=== PATIENT | male | born 1940 | race Caucasian/White ===

== ENCOUNTER 2019-10-12 15:28 | Outpatient (CLI) | payer MEDICARE, OTHER, SELFPAY ==
--- NOTE | 2019-10-12 | US_ITS ---
WS: [id number] RENAL ULTRASOUND URINARY BLADDER ULTRASOUND HISTORY: Pre- AND POST VOID RESIDUAL VOLUME COMPARISON: 01/14/2016 TECHNIQUE: 2-D and color Doppler imaging of the kidney submitted. Right kidney: 10.1 cm x 5.1 cm x 4.7 cm. Normal size kidney. Simple cyst exophytic from the upper pole measures 1.7 x 1.6 x 1.5 cm. Left kidney: 9.9 cm x 4.6 cm x 5.5 cm. Normal size kidney. Extrarenal pelvis. Aorta: Normal. Urinary Bladder: Normal distention. Prevoid volume of 52 cubic cm. Post void volume: Completely empty. US/US renal BI with bladder IMPRESSION: 1. No hydronephrosis or significant chronic medical renal disease. 2. No post void urinary bladder residual.
== END 2019-10-12 15:29 | disposition home or self-care (01) ==
LOC: RAD 15:33
PROVIDERS: PCP Family Medicine; Visit Provider Family Medicine
DX: N18.3 Chronic kidney disease, stage 3 (moderate) (principal); R35.0 Frequency of micturition
CPT/HCPCS: 76770; 76857

== ENCOUNTER → 2020-05-06 12:57 | Outpatient (BNVA) | payer MEDICARE, OTHER, SELFPAY | PROVIDERS: PCP Family Medicine; Visit Provider Family Medicine | DX: Z20.822 Contact with and (suspected) exposure to COVID-19 (principal); Z11.52 Encounter for screening for COVID-19 | CPT/HCPCS: 87635 ==

== ENCOUNTER 2021-05-09 09:37 | Outpatient (CLI) | payer MEDICARE, OTHER, SELFPAY ==
--- NOTE | 2021-05-09 09:44 | USCV_ITS ---
ConchitaUmer Age: 81 Gender: M : 1940 Exam Date: 05/09/2021 10:06 Ordering Phys: David Garg MD Technologist: BIRD Exam Location: [facility] [place]_ Indication: CCA STENOSIS Risk Factors: Previous Vascular Surgery: Right Brachial BP: / Left Brachial BP: / Right Left Velocity (cm/s) Spectral Plaque Velocity (cm/s) Spectral Plaque Syst/Diast Broadening Syst/Diast Broadening 93.70/ 19.80 Prox CCA 46.90 / 5.90 84.90/ 16.50 Mid CCA 57.30 / 10.40 78.30/ 12.10 Hetro Distal CCA 67.70 / 14.30 Hetro 75.60/ 18.50 Hetro Prox ICA 144.30/ 35.20 Hetro 307.90/73.40 PST Hetro Mid ICA 113.60/ 25.10 Hetro 123.30/17.40 Distal ICA 101.90/ 21.70 91.60 ECA 112.50 3.28 ICA/CCA 2.13 Retrograde Vertebral Antegrade 79.90/ 13.90 cm/s 80.20/ 15.00 cm/s Tri Subclavian Tri 65.80 123.6 0 FINDINGS Comparison: none available. Diffuse bilateral scattered calcified plaque and intimal thickening throughout the common carotid arteries and extending through the bifurcation. Elevated velocity and turbulence right ICA. Retrograde right vertebral artery. Mild left ICA elevated velocity. CONCLUSIONS Right ICA stenosis 70-99%. Closer to 70%. Left ICA stenosis < 50%. Retrograde right vertebral artery. Dr. Roxanna Albright DO (Electronically Signed) Final Date: 09 May 2021 10:54 S
== END 2021-05-09 09:38 | disposition home or self-care (01) ==
PROVIDERS: PCP Family Medicine; Visit Provider Family Medicine
DX: R09.89 Other specified symptoms and signs involving the circulatory and respiratory systems (principal); I65.23 Occlusion and stenosis of bilateral carotid arteries
CPT/HCPCS: 93880

== ENCOUNTER → 2021-10-30 09:27 | Outpatient (BNVA) | payer MEDICARE, OTHER, SELFPAY | PROVIDERS: PCP Family Medicine; Visit Provider Family Medicine | DX: E11.9 Type 2 diabetes mellitus without complications (principal); I10 Essential (primary) hypertension; I65.29 Occlusion and stenosis of unspecified carotid artery; N40.0 Benign prostatic hyperplasia without lower urinary tract symptoms | CPT/HCPCS: 80053; 80061; 83036; 85025 ==

== ENCOUNTER → 2021-12-09 09:53 | Outpatient (BNVA) | payer MEDICARE, OTHER, SELFPAY | PROVIDERS: PCP Family Medicine; Visit Provider Family Medicine | DX: N18.32 Chronic kidney disease, stage 3b (principal) | CPT/HCPCS: 80069; 82043; 82310; 83970; 85025 ==

== ENCOUNTER → 2022-02-02 09:33 | Outpatient (BNVA) | payer MEDICARE, OTHER, SELFPAY | PROVIDERS: PCP Family Medicine; Visit Provider Family Medicine | DX: Z51.81 Encounter for therapeutic drug level monitoring (principal); E11.9 Type 2 diabetes mellitus without complications; I10 Essential (primary) hypertension | CPT/HCPCS: 80053; 83036; 85025 ==

== ENCOUNTER → 2022-05-06 09:37 | Outpatient (BNVA) | payer MEDICARE, OTHER, SELFPAY | PROVIDERS: PCP Family Medicine; Visit Provider Family Medicine | DX: N40.0 Benign prostatic hyperplasia without lower urinary tract symptoms (principal); Z51.81 Encounter for therapeutic drug level monitoring; E11.9 Type 2 diabetes mellitus without complications | CPT/HCPCS: 80053; 83036; 83735; 84153; 85025 ==

== ENCOUNTER 2022-05-29 08:40 | Outpatient (CLI) | payer MEDICARE, OTHER, SELFPAY ==
--- NOTE | 2022-05-29 09:30 | USCV_ITS ---
Umer Arango Age: 82 Gender: M : 1940 Exam Date: 05/29/2022 08:50 Ordering Phys: David Garg MD Technologist: CT Exam Location: [facility] [place] Indication: stenosis Risk Factors: Previous Vascular Surgery: Right Brachial BP: / Left Brachial BP: / Right Left Velocity (cm/s) Spectral Plaque Velocity (cm/s) Spectral Plaque Syst/Diast Broadening Syst/Diast Broadening 75.20/ 8.50 Prox CCA 104.70/ 13.20 74.30/ 11.10 Mid CCA 86.00 / 16.50 73.50/ 12.00 Distal CCA 91.50 / 11.00 87.10/ 12.80 Prox ICA 105.80/ 26.10 189.85/35.05 Mid ICA 81.50 / 15.70 119.10/15.60 Distal ICA 71.20 / 13.70 96.20 ECA 69.00 2.43 ICA/CCA 1.01 Bi- Vertebral Antegrade directiona l 86.60/ 11.40 cm/s 89.30/ 4.40 cm/s Bi Subclavian Tri 93.70 129.3 0 FINDINGS The stenosis on the right doesnt appear as significant on todays study. The right vert and subclavian are abnormal compared to the left. The right subclavian is more rounded waveform than left and the right vert is bidirectional. Further evaluation with other modality may be of some use. Comparison 2019 CONCLUSIONS Suspected early subclavian steal right verterbral artery with bidirectional flow Normal antegrade Doppler flow noted in the left vertebral artery. Right ICA stenosis <50%. Moderate atheromatous plaque right carotid bulb/ICA. Velocities decreased since 2019 Left ICA stenosis <50%. Moderate atheromatous plaque left carotid bulb/ICA. Velocities decreased since 2019 Ki Barajas MD (Electronically Signed) Final Date: 29 May 2022 10:37 S
== END 2022-05-29 08:41 | disposition home or self-care (01) ==
LOC: RAD 08:43
PROVIDERS: PCP Family Medicine; Visit Provider Family Medicine
DX: R09.89 Other specified symptoms and signs involving the circulatory and respiratory systems (principal); I65.23 Occlusion and stenosis of bilateral carotid arteries
CPT/HCPCS: 93880

== ENCOUNTER 2022-08-18 10:46 | Outpatient (CLI) | payer MEDICARE, OTHER, SELFPAY ==
--- NOTE | 2022-08-18 11:00 | CT_ITS ---
WS: [id number] CTA THORACIC TECHNIQUE: Contrast enhanced CTA of the thoracic aorta with coronal and sagittal reformatted images a nd maximum intensity projection (MIP) images. CLINICAL INFORMATION: Concern for subclavian steal syndrome on the right COMPARISON: Ultrasound May 29, 2022 DLP: 747.[address] scans at [facility] use at least one of these dose optimization techniques: automated e xposure control; mA and/or kV adjustment per patient size (includes targeted exams where dose is matc hed to clinical indication); or iterative reconstruction. FINDINGS: RIGHT vertebral artery is patent. High-grade stenosis RIGHT subclavian artery origin. Commo n carotid origin is patent from the innominate. This corresponds with findings of subclavian steal on the prior ultrasound. Some images degraded by contrast injection this area.Distal subclavian artery appears patent likely mainly filling from the vertebral artery.Mild aortic arch calcification. LEFT v ertebral artery is patent. LEFT common carotid origin is patent. Prominent RIGHT paratracheal lymph n ode measuring 10 mm. 5 mm nodule LEFT upper lobe. Additional small nodule at the LEFT lung apex measuring 4 mm. A few calc ified granulomas. Advanced chronic emphysematous changes. No acute pulmonary infiltrates. No focal pn eumonia or pleural fluid. Proximal main pulmonary arteries are normal. Normal caliber thoracic aorta. Mild aortic calcification. Normal caliber ascending and descending thoracic aorta. Hepatic cyst partially visualized. Adrenal glands are normal. Partially visualized RIGHT renal cyst. Bilateral renal cortical atrophy. Pancreatic calcifications with presumed pseudocyst noted of the hays creas. Evidence of chronic pancreatitis. Cholecystectomy clips. Celiac and SMA are patent. Moderate e sophageal hiatal hernia. Thyroid isthmus nodule measuring 1.9 x 1.3 CCM. No axillary lymphadenopathy. CT/CT angio chest 20257 IMPRESSION: 1. 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 RIGHT vertebral artery is patent compatible with subclavian steal seen on the recent ultrasound. 2. LEFT common carotid artery, RIGHT common carotid origin, LEFT subclavian ar alannah and vertebral arteries are patent. 3. Moderate to advanced chronic emphysematous changes. Noncalcified nodule LEF T upper lobe measuring 5 mm. Recommend 12 month follow-up chest CT. 4. Moderate esophageal hiatal hernia.
[2022-08-18] MEDS: iohexol 350 mg/mL 500 mL Btl (per mL) IV (11:17)
== END 2022-08-18 10:47 | disposition home or self-care (01) ==
LOC: RAD 10:51
PROVIDERS: PCP Family Medicine; Visit Provider Family Medicine
DX: I65.23 Occlusion and stenosis of bilateral carotid arteries (principal); I77.1 Stricture of artery; E11.9 Type 2 diabetes mellitus without complications; Z13.220 Encounter for screening for lipoid disorders; Z51.81 Encounter for therapeutic drug level monitoring
CPT/HCPCS: 71275; 80053; 80061; 83036; 85025; Q9967

== ENCOUNTER → 2022-11-10 11:50 | Outpatient (BNVA) | payer MEDICARE, OTHER, SELFPAY | PROVIDERS: PCP Family Medicine; Visit Provider Family Medicine | DX: Z51.81 Encounter for therapeutic drug level monitoring (principal); E11.9 Type 2 diabetes mellitus without complications; E53.8 Deficiency of other specified B group vitamins | CPT/HCPCS: 80053; 82607; 83036; 85025 ==

== ENCOUNTER → 2023-02-17 11:59 | Outpatient (BNVA) | payer MEDICARE, OTHER, SELFPAY | PROVIDERS: PCP Family Medicine; Visit Provider Family Medicine | DX: Z51.81 Encounter for therapeutic drug level monitoring (principal); E11.9 Type 2 diabetes mellitus without complications; E53.8 Deficiency of other specified B group vitamins; N18.32 Chronic kidney disease, stage 3b | CPT/HCPCS: 80053; 80069; 82607; 83036; 85025 ==

== ENCOUNTER 2023-05-26 13:08 | Outpatient (CLI) | payer MEDICARE, OTHER, SELFPAY ==
[2023-05-26 13:30] LABS: Basophils # 0.1 10^3/uL (0.0-0.1); Basophils % 1.2 %; Eosinophils # 0.5 10^3/uL (0.0-0.8); Eosinophils % 5.4 %; Hematocrit 40.2 % (37-53); Lymphocytes # 1.6 10^3/uL (0.8-4.8); Mean Corpuscular HGB Conc 32.3 g/dL (30-55); Mean Corpuscular Hemoglobin 30.5 pg (27-33); Mean Corpuscular Volume 94.4 fl (82-101); Mean Platelet Volume 10.3 fL (7.4-10.4); Monocytes # 1.1 10^3/uL (0.2-0.9); Monocytes % 12.4 %; Neutrophils # 5.21 10^3/uL (1.8-7.7); Neutrophils % 61.4 %; Nucleated Red Blood Cells % 0 %; Platelet Count 270 10^3/cmm (157-399); Red Blood Count 4.26 10^6/uL (3.85-5.65); Red Cell Distribution Width 12.8 % (12.1-15.1); White Blood Count 8.48 10^3/uL (3.29-11.43)
[2023-05-26 14:01] LABS: Alanine Aminotransferase 17 U/L (0-41)
[2023-05-26 14:03] LABS: Estmated Average Glucose 146; Hemoglobin A1C 6.7 % (4.0-6.0)
[2023-05-26 14:15] LABS: Anion Gap 16.1 (5-19); Blood Urea Nitrogen 18 mg/dL (8-23); Calcium 8.7 mg/dL (8.5-10.5); Carbon Dioxide 21 mmol/L (22-29); Globulin 3.4 g/dL (1.3-4.6); Glucose 126 mg/dL (65-115); Magnesium 1.6 mg/dL (1.7-2.3); Osmolality Calculated 289 mOsm/kg (285-295); Total Bilirubin 0.3 mg/dL (0.15-1.2)
[2023-05-26 14:16] LABS: Albumin Level 3.6 g/dL (3.5-5.2); Alkaline Phosphatase 108 U/L (40-130); Aspartate Amino Transferase 21 U/L (0-40); Chloride 105 mmol/L (98-107); Potassium 4.1 mmol/L (3.5-5.1); Sodium 138 mmol/L (136-145)
== END 2023-05-26 13:09 | disposition home or self-care (01) ==
LOC: LAB 13:09
PROVIDERS: PCP Family Medicine; Visit Provider Family Medicine
DX: E11.9 Type 2 diabetes mellitus without complications (principal); Z51.81 Encounter for therapeutic drug level monitoring
CPT/HCPCS: 36415; 80053; 83036; 83735; 85025

== ENCOUNTER 2023-08-31 14:08 | Outpatient (CLI) | payer MEDICARE, OTHER, SELFPAY ==
[2023-08-31 15:02] LABS: Basophils # 0.1 10^3/uL (0.0-0.1); Basophils % 1.5 %; Eosinophils # 0.5 10^3/uL (0.0-0.8); Eosinophils % 6.5 %; Hematocrit 37.1 % (37-53); Lymphocytes # 1.5 10^3/uL (0.8-4.8); Mean Corpuscular HGB Conc 32.3 g/dL (30-55); Mean Corpuscular Hemoglobin 30.1 pg (27-33); Mean Platelet Volume 10.6 fL (7.4-10.4); Monocytes # 0.9 10^3/uL (0.2-0.9); Monocytes % 10.4 %; Neutrophils # 5.16 10^3/uL (1.8-7.7); Neutrophils % 63.2 %; Nucleated Red Blood Cells % 0 %; Platelet Count 269 10^3/cmm (157-399); Red Blood Count 3.99 10^6/uL (3.85-5.65); Red Cell Distribution Width 13.1 % (12.1-15.1); White Blood Count 8.16 10^3/uL (3.29-11.43)
[2023-08-31 15:37] LABS: Alanine Aminotransferase 16 U/L (0-41); Albumin Level 3.5 g/dL (3.5-5.2); Alkaline Phosphatase 100 U/L (40-130); Aspartate Amino Transferase 18 U/L (0-40); Blood Urea Nitrogen 17 mg/dL (8-23); Calcium 8.3 mg/dL (8.5-10.5); Carbon Dioxide 23 mmol/L (22-29); Chloride 104 mmol/L (98-107); Globulin 3.1 g/dL (1.3-4.6); Glucose 157 mg/dL (65-115); Magnesium 1.9 mg/dL (1.7-2.3); Osmolality Calculated 287 mOsm/kg (285-295); Prostate Specific Antigen 0.265 ng/mL (0-4); Sodium 136 mmol/L (136-145); Total Bilirubin 0.2 mg/dL (0.15-1.2); Total Protein 6.6 g/dL (6.6-8.7); Vitamin B12 521 pg/mL (232-1245)
[2023-08-31 15:40] LABS: Anion Gap 13.8 (5-19); Potassium 4.8 mmol/L (3.5-5.1)
[2023-08-31 16:38] LABS: Estmated Average Glucose 140; Hemoglobin A1C 6.5 % (4.0-6.0)
== END 2023-08-31 14:09 | disposition home or self-care (01) ==
LOC: LAB 14:10
PROVIDERS: PCP Family Medicine; Visit Provider Family Medicine
DX: Z51.81 Encounter for therapeutic drug level monitoring (principal); E11.9 Type 2 diabetes mellitus without complications; N40.0 Benign prostatic hyperplasia without lower urinary tract symptoms; E53.8 Deficiency of other specified B group vitamins
CPT/HCPCS: 36415; 80053; 82607; 83036; 83735; 84153; 85025

== ENCOUNTER 2023-12-02 13:53 | Outpatient (CLI) | payer MEDICARE, OTHER, SELFPAY ==
[2023-12-02 14:26] LABS: Basophils # 0.2 10^3/uL (0.0-0.1); Basophils % 1.8 %; Eosinophils # 0.6 10^3/uL (0.0-0.8); Eosinophils % 6.4 %; Hematocrit 39.1 % (37-53); Lymphocytes # 1.7 10^3/uL (0.8-4.8); Lymphocytes % 18.9 %; Mean Corpuscular HGB Conc 32.7 g/dL (30-55); Mean Corpuscular Volume 91.6 fl (82-101); Mean Platelet Volume 10.4 fL (7.4-10.4); Monocytes # 0.9 10^3/uL (0.2-0.9); Monocytes % 9.9 %; Neutrophils % 62.6 %; Nucleated Red Blood Cells % 0 %; Platelet Count 286 10^3/cmm (157-399); Red Blood Count 4.27 10^6/uL (3.85-5.65); Red Cell Distribution Width 13.3 % (12.1-15.1)
[2023-12-02 14:50] LABS: Alanine Aminotransferase 18 U/L (0-41); Albumin Level 3.8 g/dL (3.5-5.2); Alkaline Phosphatase 121 U/L (40-130); Aspartate Amino Transferase 21 U/L (0-40); Blood Urea Nitrogen 21 mg/dL (8-23); Calcium 8.8 mg/dL (8.5-10.5); Carbon Dioxide 19 mmol/L (22-29); Chloride 103 mmol/L (98-107); Globulin 2.9 g/dL (1.3-4.6); Glucose 142 mg/dL (65-115); Magnesium 1.7 mg/dL (1.7-2.3); Osmolality Calculated 281 mOsm/kg (285-295); Sodium 133 mmol/L (136-145); Total Bilirubin 0.3 mg/dL (0.15-1.2); Total Protein 6.7 g/dL (6.6-8.7)
[2023-12-02 14:51] LABS: Anion Gap 15.2 (5-19); Potassium 4.2 mmol/L (3.5-5.1)
[2023-12-02 14:52] LABS: Estmated Average Glucose 151; Hemoglobin A1C 6.9 % (4.0-6.0)
[2023-12-02 15:04] LABS: Vitamin B12 496 pg/mL (232-1245)
== END 2023-12-02 13:54 | disposition home or self-care (01) ==
LOC: LAB 13:55
PROVIDERS: PCP Family Medicine; Visit Provider Family Medicine
DX: Z51.81 Encounter for therapeutic drug level monitoring (principal); E11.9 Type 2 diabetes mellitus without complications; E83.42 Hypomagnesemia; E53.8 Deficiency of other specified B group vitamins
CPT/HCPCS: 36415; 80053; 82607; 83036; 83735; 85025

== ENCOUNTER → 2024-03-08 12:17 | Outpatient (BNVA) | payer MEDICARE, OTHER, SELFPAY | PROVIDERS: PCP Family Medicine; Visit Provider Family Medicine | DX: E11.9 Type 2 diabetes mellitus without complications (principal); Z51.81 Encounter for therapeutic drug level monitoring; E83.42 Hypomagnesemia | CPT/HCPCS: 80053; 83036; 83735; 85025 ==

== ENCOUNTER → 2024-06-12 11:40 | Outpatient (BNVA) | payer MEDICARE, OTHER, SELFPAY | PROVIDERS: PCP Family Medicine; Visit Provider Family Medicine | DX: Z00.00 Encounter for general adult medical examination without abnormal findings (principal); Z13.6 Encounter for screening for cardiovascular disorders; E11.9 Type 2 diabetes mellitus without complications; Z51.81 Encounter for therapeutic drug level monitoring | CPT/HCPCS: 80053; 80061; 83036; 85025 ==

== ENCOUNTER → 2024-09-15 11:39 | Outpatient (BNVA) | payer MEDICARE, OTHER, SELFPAY | PROVIDERS: PCP Family Medicine; Visit Provider Family Medicine | DX: E11.9 Type 2 diabetes mellitus without complications (principal); Z51.81 Encounter for therapeutic drug level monitoring; N40.0 Benign prostatic hyperplasia without lower urinary tract symptoms | CPT/HCPCS: 80053; 83036; 84153; 85025 ==

== ENCOUNTER → 2024-12-22 11:22 | Outpatient (BNVA) | payer MEDICARE, OTHER, SELFPAY | PROVIDERS: PCP Family Medicine; Visit Provider Family Medicine | DX: Z51.81 Encounter for therapeutic drug level monitoring (principal); E83.42 Hypomagnesemia; E53.8 Deficiency of other specified B group vitamins | CPT/HCPCS: 80053; 82306; 82607; 83735; 85025 ==

== ENCOUNTER 2024-12-28 13:16 | Outpatient (RCR) | payer MEDICARE, OTHER, SELFPAY | END 2025-01-02 23:59 | disposition home or self-care (01) | LOC: SST 13:16 | PROVIDERS: Visit Provider Otolaryngology | DX: J38.3 Other diseases of vocal cords (principal) | CPT/HCPCS: 92524 ==

== ENCOUNTER 2025-01-03 05:00 | Outpatient (RCR) | payer MEDICARE, OTHER, SELFPAY | END 2025-01-17 07:26 | disposition home or self-care (01) | LOC: SST 05:00 | PROVIDERS: Visit Provider Otolaryngology | DX: R49.0 Dysphonia (principal) | CPT/HCPCS: 92507 ==

== ENCOUNTER 2025-03-11 06:13 | Inpatient (IN) | payer MEDICARE, OTHER, SELFPAY ==
--- OUTSIDE RECORDS SUMMARY | 2023-09-13 06:30 | XMS_ITS ---
Author Organization [facility] Address [address] [facility] [place] [address] Care Team Providers Care Director Nursery [employer] Name Role Phone HolaMaximus munoz Unavailable [phone] REASON FOR VISIT 3 month f/u Carotid Doppler Encounters Encounter Location Date Provider Diagnosis [facility] [address] [place] [address] [address] [place] [address] 09/13/2023 Maximus Hensley Plan Of Treatment No Information Progress Notes * Umer ARANGODOB:[birth year] (84 yo M)Acc No.[id number]:09/13/2023 Patient: Umer Blackwell Provider: Lyubov Hensley MD :1940 A ge:83 Y S ex:Male Date:09/13/2023 Address:[facility] [address] [id number] Subjective: * Chief Complaints: * 3 month f/u Carotid Doppler Billing Information: * Procedure Codes: * Electronic signature of Maximus Hensley MD on 03/11/2025 at 06:19 AM JANITOR AND CLEANER Sign off status: Pending * Provider: Lyubov Hensley MD Date: 0 09/13/2023 Generated for Joaquinai ng/Fajossieg/eTransmitting on: 1 05/12/2024 06:19 AM JANITOR AND CLEANER
--- OUTSIDE RECORDS SUMMARY | 2024-09-14 05:00 | XMS_ITS ---
Author Organization [facility] Address [address] [place] [address] Care Team Providers Care Beverage Manager Name Role Phone Shellie Maximus Unavailable [phone] REASON FOR VISIT 1 year f/u Carotid Doppler hx of CEA and right carotid to subclavian bypass Encounters Encounter Location Date Provider Diagnosis [facility] [address] [place] [address] 09/14/2024 Maximus Hensley Plan Of Treatment No Information Progress Notes * Umer ARANGODOB:[birth year] (84 yo M)Acc No.[id number]:09/14/2024 Patient: Umer Blackwell Provider: Lyubov Hensley MD :1940 A ge:84 Y S ex:Male Date:09/14/2024 Address:[facility] [address] [id number] Subjective: * Chief Complaints: * 1 year f/u Carotid Doppler hx of CEA and right carotid to subclavian bypass Billing Information: * Procedure Codes: * Electronic signature of Maximus Hensley MD on 03/11/2025 at 06:19 AM CONTRACT SHELTERED WORKSHOP SUPERVISOR Sign off status: Pending * Provider: Lyubov Hensley MD Date: 0 09/14/2024 Generated for Galen de anda/Christiane/Brittonitting on: 1 05/12/2024 06:19 AM CONTRACT SHELTERED WORKSHOP SUPERVISOR
--- OUTSIDE RECORDS SUMMARY | 2024-09-14 05:30 | XMS_ITS ---
Author Organization [facility] Address [address] [place] [address] Care Team Providers Care Cellular Biologist Name Role Phone Maximus Hensley Unavailable [phone] Roro Hobbs Unavailable [phone] REASON FOR VISIT 1 year f/u Carotid Doppler hx CEA and right carotid to subclavian bypass Encounters Encounter Location Date Provider Diagnosis [facility] [address] [place] [address] 09/14/2024 Roro Hobbs Plan Of Treatment No Information Progress Notes * Umer ARANGODOB:[birth year] (84 yo M)Acc No.[id number]:09/14/2024 Progress Notes Patient: Umer Blackwell Provider: Connie Hobbs CNP :1940 A ge:84 Y S ex:Male Date:09/14/2024 Address:[facility] [address] [id number] Subjective: * Chief Complaints: * 1 year f/u Carotid Doppler hx CEA and right carotid to subclavian bypass Billing Information: * Procedure Codes: Care Plan Details* * Electronic signature of Jeffrey Hobbs CNP on 03/11/2025 at 06:19 AM CHILDBIRTH EDUCATOR Sign off status: Pending * Provider: Connie Hobbs CNP Date: 0 09/14/2024 Generated for Printi ng/Faxing/eTransmitting on: 1 05/12/2024 06:19 AM CHILDBIRTH EDUCATOR
[2025-03-11] VITALS (12 sets, daily range): BP systolic 108–135; BP diastolic 53–66; PULSE 70–83; RESP 16–24; TEMP 36.3–36.8; O2SAT 90–95; BMI 25.8
--- OUTSIDE RECORDS SUMMARY | 2025-03-11 06:19 | XMS_ITS | Patient Health Record ---
Author Organization [facility] Address [address] [place] [address] Care Team Providers Care Underwriting Support Manager Name Role Phone Maximus Hensley Unavailable [phone] FabyRoro valencia Unavailable [phone] Allergies Allergen (clinical drug ingredient) Drug/Non Drug Allergy documented on EMR Reaction Allergy Type Onset Date Status No Known Drug Allergy Unknown Drug Allergy Active Reason For Referral No Information Medications Medication SIG (Take, Route, Frequency, Duration) Notes Start Date End Date Status Metoprolol Tartrate 50 MG Tablet 1 tablet with food Orally Twice a day Active Proscar 5 MG Tablet 1 tablet Orally Once a day Active PROzac 20 MG Capsule 1 capsule Orally Once a day Active Oscal 500/200 D-3 No t-Taking Cortisporin Eye Drops Not-Taki ng Cozaar 100 MG Tablet 1 tablet Orally Once a day Active Aspirin 81 MG Tablet Delayed Release 1 tablet Orally Once a day Active Apple Cider Vinegar 600 MG Capsule 450 mg capsule Orally as needed Active hydroCHLOROthiazide 12.5 MG Capsule 1 capsule in the morning Orally Once a day Active amLODIPine Besylate 5 MG Tablet 1 tablet Orally Once a day Not-Taking Omeprazole 40 MG Capsule Delayed Release 1 capsule 30 minutes before morning meal Orally Once a day Not-Taking Social History Tobacco Use: Social History Observation Description Date Details (start date - stop date) Former Smoker NA - NA Social History Drugs/Alcohol: Social Info Question Answer Notes Alcohol Screen (Audit-C) Did you have a drink containing alcohol in the past year? No Points 0 Interpretation Negative Drugs Have you used drugs other than those for medical reasons in the past 12 months? No Caffeine Intake: 2-3 cups per day Tobacco Use: Social Info Question Answer Notes Tobacco Control (Standard) Tobacco use: Former smoker How long has it been since you last smoked? Greater than 10 years xTobacco Use/Smoking Are you a former smoker How long has it been since you last smoked? > 10 years Additional Details Category Social Info Options Details Drugs/Alcohol: Do you smoke marijuana? De nies Do you drink alcohol? No Section Notes: smoked 1 ppd x 40 years smoked 1 ppd x 40 years smoked 1 ppd x 40 years smoked 1 ppd x 40 years smoked 1 ppd x 40 years Problems Problem Type SNOMED Code ICD Code Onset Dates Problem Status W/U Status Risk Notes Problem Hearing loss (65352157) Bilateral hearing loss, unspecified hearing loss type (H91.93) Active confirmed Problem Hypertension (19362611) Hypertension (I10) Active confirmed Problem Subclavian steal syndrome (98477174) Subclavian steal syndrome (G45.8) Active confirmed Problem Right carotid artery stenosis (473178547276482 ) Carotid stenosis, right (I65.21) Active confirmed Problem Stenosis of right subclavian artery (695551846081690 00) Stenosis of right subclavian artery (I77.1) Active confirmed Encounters Encounter Location Date Provider Diagnosis [facility] [address] [place] [address] 09/28/2024 Roro Hobbs Plan Of Treatment Pending Test Test Name Order Date Blood Urea Nitrogen (BUN) 40824 04/22/19 24 Blood Urea Nitrogen (BUN) 46861 05/05/19 24 Creatinine (B) 16246 05/05/2023 Creatinine (B) 62767 04/22/2023 CTA Neck w/ + w/o Contrast-74469 024 CTA Neck w/ + w/o Contrast-77231 024 Echo Complete EC-[id number] 05/05/2023 Echo Complete EC-[id number] 05/20/2023 NM Lexiscan Cardiolite-56341 05/05/2023 NM Lexiscan Cardiolite-91604 05/20/2023 US Carotid Doppler Bilateral-20611 04/12 US Carotid Doppler Bilateral-72293 09/12 Electrocardiogram 12 Lead Tracing (EKG)- 15845 06/02/2023 Stress, Lexiscan Cardiolite-97456 2023 PRBC-LR--P9016 06/17/2023 Glucometer WBG--74820 06/17/2023 Crossmatch--75376 06/17/2023 Schedule Confirmation 05/20/2023 Schedule Confirmation 05/20/2023 Schedule Confirmation 05/20/2023 Schedule Confirmation 05/20/2023 Schedule Confirmation 05/20/2023 Schedule Confirmation 05/20/2023 Schedule Confirmation 05/20/2023 Schedule Confirmation 05/20/2023 Schedule Confirmation 05/20/2023 Schedule Confirmation 04/12/2023 Schedule Confirmation 04/12/2023 Schedule Confirmation 05/20/2023 Schedule Confirmation 05/05/2023 Schedule Confirmation 05/05/2023 Insurance Providers Payer Name Payer Address Payer Phone Subscriber Number Group Number Insured Name Patient Relationship to Insured Coverage Start Date Coverage End Date PR Medicare [address] [place] [phone] [id number] Umer Arango Self - patient is the insured [facility] Insurance [address] [address] [place] [address] [phone] [id number] Umer Arango Self - patient is the insured Medical (General) History Medical History History ICD Code type II diabetes hypertension benign prostatic hyperplasia (BPH) subclavian artery stenosis Surgical History Surgery Date(Month/Year) cholecystectomy appendectomy cataract removal bilateral ear drum surgery x 2 Right Carotid Endarterectomy with patch 06.18.23
--- OUTSIDE RECORDS SUMMARY | 2025-03-11 06:20 | XMS_ITS | Clinical Summary ---
Author Organization [facility] Address [address] [place] [address] Care Team Providers Care Process Camera Operator Name Role Phone David Garg MD Primary Care Provider [phone] Allergies Active Allergy Reactions Criticality Noted Date Comments Lisinopril Other (see comments) Medium 06/27/2020 Medications FLUoxetine (PROzac) 20 MG capsule Take 20 mg by mouth 1 (one) time each day Active metoprolol tartrate (LOPRESSOR) 50 MG tablet Take 50 mg by mouth 2 (two) times a day Active finasteride (PROSCAR) 5 MG tablet Take 5 mg by mouth 1 (one) time each day Do not crush, chew, or split. Active losartan (COZAAR) 100 MG tablet Take 100 mg by mouth 1 (one) time each day Active tamsulosin (FLOMAX) 0.4 MG 24 hr capsule Take 0.4 mg by mouth 1 (one) time each day Active APPLE CIDER VINEGAR PO Take by mouth Active cyanocobalamin (VITAMIN B-12) 100 MCG tablet Take 50 mcg by mouth 1 (one) time each day Active omeprazole OTC (PriLOSEC OTC) 20 MG EC tablet Take 20 mg by mouth 1 (one) time each day Do not crush, chew, or split. Only takes 2-3 times weekly Active Active Problems Problem Noted Date Diagnosed Date Stage 3b chronic kidney disease 07/07/2020 Essential (primary) hypertension 07/07/2020 Type 2 diabetes mellitus with diabetic nephropat hy 07/07/2020 Tobacco dependence in remission 07/07/2020 Overview (07/07/2020): Quit 1197- 40 pack year history Family History Medical History Relation Comments Dementia Mother Heart disease Mother Hypertension Mother Relation Status Comments Father Mother Social History Tobacco Use Types Packs/Day Years Used Date Smoking Tobacco: Former Cigarettes 0 Q uit: 1997 Smokeless Tobacco: Never Tobacco Cessation:Counseling Given: Not Answered Alcohol Use Standard Drinks/Week Comments Yes 0 (1 standard drink = 0.6 oz pur e alcohol) Sex and Gender Information Value Date Recorded Sex Assigned at Not on file Legal Sex Male 1:03 PM EDT Gender Identity Not on file Sexual Orientation Not on file Last Filed Vital Signs Vital Sign Reading Time Taken Comments Blood Pressure 138/68 03/16/2023 9:23 AM SENIOR TECHNICAL ANALYST Pulse 66 03/16/2023 9:23 AM SENIOR TECHNICAL ANALYST Temperature 37.1 C (98.8 F) 07/08/2020 10:32 AM CDT Respiratory Rate - - Oxygen Saturation - - Inhaled Oxygen Concentration - - Weight 89.4 kg (197 lb) 03/16/2023 9:23 AM SENIOR TECHNICAL ANALYST Height 175.3 cm (5' 9 ) 03/16/2023 9:23 AM SENIOR TECHNICAL ANALYST Body Mass Index 29.09 03/16/2023 9:23 AM SENIOR TECHNICAL ANALYST Plan of Treatment Health Maintenance Due Date Last Done Comments Pneumococcal Vaccine: 50+ Years (1 of 2 - PCV) 1960 Diabetes: Ophthalmology Exam 07/07/2020 Diabetes: Pedal Pulse Checked 07/07/2020 Diabetes: Sensory Foot Exam 07/07/2020 Diabetes: Visual Foot Exam 07/07/2020 Diabetes: Hemoglobin A1C 05/20/2023 023, 10/09/2020, 04/08/2020, Additional history exists Influenza Vaccine (#1) 2024 Hepatitis B Vaccine Aged Out No longe r eligible based on patient's age to complete this topic Procedures Procedure Name Priority Date/Time Associated Diagnosis Comments HEMOGLOBIN A1C (EXTERNAL RESULT ENTRY) Routine 02/17/2023 11:59 AM SENIOR TECHNICAL ANALYST from Last 3 Months or Most Recently Relevant to Health Maintenance Results * Hemoglobin A1C (02/17/2023 11:59 AM SENIOR TECHNICAL ANALYST) Hemoglobin A1C 6.4 Blood specimen (specimen) Venous blood / Unknown 02/17/2023 11:59 AM SENIOR TECHNICAL ANALYST us Aps External Provider LAB BLOOD ORDERABLES Final Result from Last 3 Months or Most Recently Relevant to Health Maintenance Insurance Medicare [facility] [place] [id number] Care Teams Process Camera Operator Relationship Specialty Start Date End Date David Garg MD PCP - General Family Medicine 02/01/20
--- OUTSIDE RECORDS SUMMARY | 2025-03-11 06:20 | XMS_ITS | Encounter Summary ---
Author Organization [facility] Address [address] [facility] [address] [place] [address] Phone Care Team Providers Care Rn Cardiovascular Icu Name Role Phone David Garg MD Primary Care Provider [phone] Encounter Details Date Type Department Care Team (Late st Contact Info) Description 02/01/2020 Orders Only [facility] [address] [place] [address] Chronic kidney disease, stage 3 unspecified, not otherwise specified Social History Tobacco Use Types Packs/Day Years Used Date Smoking Tobacco: Never Assessed Sex and Gender Information Value Date Recorded Sex Assigned at Not on file Legal Sex Male 1:03 PM EDT Gender Identity Not on file Sexual Orientation Not on file documented as of this encounter Plan of Treatment Not on file documented as of this encounter Visit Diagnoses Diagnosis Chronic kidney disease, stage 3 unspecified, not otherwise specified documented in this encounter Care Teams Rn Cardiovascular Icu Relationship Specialty Start Date End Date David Garg MD PCP - General Family Medicine 02/01/20 documented as of this encounter
--- NOTE | 2025-03-11 06:31 | ED_ITS ---
HPI - URI/Sore Throat 2 General: Chief Complaint: Upper Respiratory Infection Stated Complaint: coughing, unable to eat, weakness Time Seen by Provider: 03/11/25 06:31 History of Present Illness: 84-year-old man with history of hyperten rochelle, diabetes (no longer on meds), chronic kidney disease, carotid artery stenosis who presents emergency room with cough for a week, weakness, loss of appetite. Son is with him and says that his breathing seem more shallow today so he brought him in. No known fevers. No altered mental status. He says that he has been told he has COPD but is not on any inhalers at home. No chest pain. No abdominal pain. No vomiting. He says everything tastes bad. His son says he has not been eating and has not had much to drink either and he is afraid he is dehydrated. No focal motor deficits. No lower extremity swelling. Related Data Home Medications ?Medication ?Instructions ?Recorded ?Confirmed omeprazole 40 mg capsule,delayed See Rx Instructions . Route 08/31/23 12/22/24 release .COMPLEX PRN magnesium 250 mg tablet 250 mg PO DAILY 12/22/24 metoprolol tartrate 50 mg tablet 25 mg PO BID 12/22/24 12/22/24 Previous Rx's ?Medication ?Instructions ?Recorded aspirin 81 mg tablet,delayed 81 mg PO DAILY #90 tabs 0 09/22/23 release (Enteric Coated Aspirin) finasteride 5 mg tablet See Rx Instructions .Route 0 08/22/24 .COMPLEX #90 tabs fluoxetine 20 mg capsule See Rx Instructions .Route 0 08/22/24 .COMPLEX #90 caps losartan 100 mg tablet See Rx Instructions .Route 0 08/22/24 .COMPLEX #90 tabs hydrochlorothiazide 12.5 mg capsule See Rx Instruction s .Route 10/04/24 .COMPLEX #90 caps amlodipine 5 mg tablet See Rx Instructions .Route 0 12/22/24 .COMPLEX #180 tabs cholecalciferol (vitamin D3) 50 50 mcg PO DAILY #30 ca ps 12/28/24 mcg (2,000 unit) capsule cyanocobalamin (vitamin B-12) 500 500 mcg PO DAILY #30 tabs 12/28/24 mcg tablet (Vitamin B-12) Allergies Allergy/AdvReac Type Severity Reaction Status Date / Time lisinopril AdvReac Mild Unknown Unverified 03/11/25 06:55 Review of Systems 2 Narrative: Constitutional symptoms: Negative except as documented in HPI. Skin symptoms: Negative except as documented in HPI. Eye symptoms: Negative except as documented in HPI. ENMT symptoms: Negative except as documented in HPI. Respiratory symptoms: Negative except as documented in HPI. Cardiovascular symptoms: Negative except as documented in HPI. Gastrointestinal symptoms: Negative except as documented in HPI. Genitourinary symptoms: Negative except as documented in HPI. Musculoskeletal symptoms: Negative except as documented in HPI. Neurologic symptoms: Negative except as documented in HPI. Psychiatric symptoms: Negative except as documented in HPI. Endocrine symptoms: Negative except as documented in HPI. PFSH ED 2 PFSH: Medical History (Updated 03/11/25 @ 08:03 by Zulema Guillen MD) Pancreatic cyst Benign Liver cyst Benign Hypertension Diabetes Surgical History Subclavian artery stenosis Subclavian artery bypass - 06/17/23 - Dr Jeff History of carotid endarterectomy 06/17/23 - Dr Jeff - [facility] Home History of bilateral tympanoplasty History of appendectomy History of cholecystectomy Family History Brother CAD (coronary artery disease) of [place] Mother Atrial fibrillation Social History Smoking and tobacco/nicotine status: never used tobacco/nicotine Quit status (tobacco/nicotine): has quit using Year quit tobacco: 1996 - pack year histo Alcohol intake: former Year of sobriety/quit date alcohol: 1985 Current occupational status: retired 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 General: Alert, no acute distress. Skin: Warm, dry. Head: Normocephalic, atraumatic. Neck: Supple, trachea midline. Eye: Extraocular movements are intact. Ears, nose, mouth and throat: mucosa moist. Cardiovascular: Regular, Normal peripheral perfusion. Respiratory: Coarse breath sounds, mild tachypnea, frequent cough. Very mild increased work of breathing Gastrointestinal: Soft, Nontender, Non distended Musculoskeletal: Normal ROM, no deformity. Neurological: Alert and oriented, No focal neurological deficit observed. Psychiatric: Cooperative, appropriate mood & affect. Course 2 Vital Signs: Vital signs: Vital Signs Temperature 97.5 F L 03/11/25 06:19 Pulse Rate 70 03/11/25 07:23 Respiratory Rate 22 H 03/11/25 07:23 Blood Pressure 110/55 03/11/25 06:19 Pulse Oximetry 92 03/11/25 07:23 Oxygen Delivery Me thod Room Air 03/11/25 07:23 MDM - URI/Sore Throat Medical Decision Making Medical decision making Patient's reason for coming to the emergency room: Shortness of breath, cough, weakness Social determinants: Patient is retired. Accompanied by son. I reviewed the patient's medical record. 84-year-old man with history of hypertension, diabetes (no longer on meds), chronic kidney disease, carotid artery stenosis I reviewed the patient's current home meds Patient is no longer on any diabetic medications Alternate historians: None Differential diagnosis for patient with shortness of breath includes but is not limited to and based on the above HPI, review of systems and physical exam: Pneumonia. Bronchitis. Asthma or COPD with acute exacerbation. Acute coronary syndrome / DC. Pulmonary embolism. Anxiety. Congestive heart failure. Viral infections including influenza and Covid-19. Atrial fibrillation. Anxiety. Pleural effusion. Pneumothorax. Orders placed to evaluate differential diagnosis based on the above differential, HPI and physical exam Chest x-ray: Was read by radiology as congestive heart failure, however given the patient's history with no drinking and complaints of dehydration with a low blood pressure and a cough that appears infectious I think this is a patchy pneumonia rather than fluid overload. This was reviewed and interpreted by myself the emergency room physician. I also reviewed the radiology report. Lab Review: Laboratory results were reviewed and interpreted by myself the emergency room physician. Mild leukocytosis with a white count of 13,000. No anemia. Mild renal insufficiency. Acute on chronic renal insufficiency with a BUN/creatinine of 35 and 2.1 which would again support dehydration rather than fluid overload. However his proBNP is a little bit elevated at 2600. Although I do not have a baseline. No known history of heart failure. Potassium is a bit low at 2.7. Assessment of risk: Level of risk: Moderate risk patient. Elderly. Multiple comorbidities. Hospitalization considerations: Reexamination: Patient is requiring a couple liters nasal cannula. With any movement his oxygen drops down into the 80s. His blood gas is an O2 sat of 88%. Some mild increased work of breathing. Consultation: I spoke with Dr. Dr. Maddox who is on-call for the hospitalist service who agrees to admission. Assessment and plan: Community-acquired pneumonia Hypoxemia Dehydration Acute on chronic renal insufficiency Hypokalemia ?DuoNeb, IV Solu-Medrol, IV Levaquin, normal saline bolus, 40 mill equivalents p.o. potassium -I discussed the patient with the hospitalist on-call who is admitting the patient. - Discussed findings and plan with patient. Answered any questions. - All laboratory values were reviewed and interpreted personally by myself, the ER physician - All imaging was reviewed and interpreted personally by myself, the ER physician. - Evaluation and treatment of this problem were appropriate in the emergency setting Lab Data 03/11/25 06:48 03/11/25 06:48 Radiology Impressions Chest X-Ray 03/11/25 06:32 IMPRESSION: Mild cardiac decompensation/CHF. Laboratory Results WBC 13.55 10^3/uL (3.29-11.43) H 03/11/25 06:48 RBC 3.93 10^6/uL (3.85-5.65) 03/11/25 06:48 Hgb 11.80 g/dL (11.27-16.99) 03/11/25 06:48 Hct 34.9 % (37-53) L 03/11/25 06:48 MCV 88.8 fl (82-101) 03/11/25 06:48 MCH 30.0 pg (27-33) 03/11/25 06:48 MCHC 33.8 g/dL (30-55) 03/11/25 06:48 RDW 12.7 % (12.1-15.1) 03/11/25 06:48 Plt Count 349 10^3/cmm (157-399) 03/11/25 06:48 MPV 10.5 fL (7.4-10.4) H 03/11/25 06:48 Neut % (Auto) 79.9 % 03/11/25 06:48 Lymph % (Auto) 8.3 % 03/11/25 06:48 [place] % (Auto) 7.5 % 03/11/25 06:48 Eos % (Auto) 3.2 % 03/11/25 06:48 Baso % (Auto) 0.6 % 03/11/25 06:48 Neut # (Auto) 10.82 10^3/uL (1.8-7.7) H 03/11/25 06:48 Lymph # (Auto) 1.1 10^3/uL (0.8-4.8) 03/11/25 06:48 [place] # (Auto) 1.0 10^3/uL (0.2-0.9) H 03/11/25 06:48 Eos # (Auto) 0.4 10^3/uL (0.0-0.8) 03/11/25 06:48 Baso # (Auto) 0.1 10^3/uL (0.0-0.1) 03/11/25 06:48 Nucleated RBC % (auto) 0 % 03/11/25 06:48 Nucleated RBCs # 0.0 /100WBC 03/11/25 06:48 Specimen Type Arterial 03/11/25 07:17 Sample Site Brachial, left 03/11/25 07:17 ABG pH 7.38 (7.35-7.45) 03/11/25 07:17 ABG pCO2 34.3 mmHg (35-45) L 03/11/25 07:17 ABG pO2 56.5 mmHg (80.0-100.0) L 03/11/25 07:17 ABG PO2/FiO2 Ratio 269 03/11/25 07:17 ABG HCO3 20.3 mmol/L (22-26) L 03/11/25 07:17 ABG O2 Saturation 88.4 03/11/25 07:17 ABG Base Excess -4.2 mmol/L (-2.0-2.0) L 03/11/25 07:17 Silvio Test N/a 03/11/25 07:17 A-a O2 Gradient 6.5 mmHg (5-10) 03/11/25 07:17 Hematocrit 31.3 % (42-52) L 03/11/25 07:17 Hgb O2 Saturation 88.0 % (95-100) L 03/11/25 07:17 Carboxyhemoglobin 0.2 %THgb (0.4-20.1) L 03/11/25 07:17 Methemoglobin 0.4 % (0.4-1.5) 03/11/25 07:17 Total Hemoglobin 10.2 g/dL (14-18) L 03/11/25 07:17 Sodium 138.0 mmol/L (131-143) 03/11/25 07:17 Potassium 2.4 mmol/L (3.5-5.0) L 03/11/25 07:17 Glucose 122.0 mg/dL (70-115) H 03/11/25 07:17 Ionized Calcium 1.2 mmol/L (1.1-1.4) 03/11/25 07:17 O2 Delivery Device Room air 03/11/25 07:17 FiO2 21.0 % 03/11/25 07:17 Grain Elevator Man ID Amh 03/11/25 07:17 Sodium 136 mmol/L (136-145) 03/11/25 06:48 Potassium 2.7 mmol/L (3.5-5.1) L* 03/11/25 06:48 Chloride 102 mmol/L (98-107) 03/11/25 06:48 Carbon Dioxide 21 mmol/L (22-29) L 03/11/25 06:48 Anion Gap 15.7 (5-19) 03/11/25 06:48 BUN 35 mg/dL (8-23) H 03/11/25 06:48 Creatinine 2.1 mg/dL (0.7-1.2) H 03/11/25 06:48 GFR Calculation Not Reportable 03/11/25 06:48 Glucose 135 mg/dL (65-115) H 03/11/25 06:48 Calculated Osmolality 292 mOsm/kg (285-295) 03/11/25 06:48 Lactic Acid 1.8 mmol/L (0.5-2.2) 03/11/25 06:48 Calcium 8.8 mg/dL (8.5-10.5) 03/11/25 06:48 Total Bilirubin 0.5 mg/dL (0.15-1.2) 03/11/25 06:48 AST 18 U/L (0-40) 03/11/25 06:48 ALT 14 U/L (0-41) 03/11/25 06:48 Alkaline Phosphatase 95 U/L (40-130) 03/11/25 06:48 NT-Pro-B Natriuret Pep 2661 pg/mL (0-450) H 03/11/25 06:48 Total Protein 6.9 g/dL (6.6-8.7) 03/11/25 06:48 Albumin 3.1 g/dL (3.5-5.2) L 03/11/25 06:48 Globulin 3.8 g/dL (1.3-4.6) 03/11/25 06:48 Influenza A (PCR) Negative (Negative) 03/11/25 06:39 Influenza Type B (PCR) Negative (Negative) 03/11/25 06:39 RSV (PCR) Negative (Negative) 03/11/25 06:39 SARS-CoV-2 (PCR) Negative (Negative) 03/11/25 06:39 All radiology interpretation(s) finalized by discharge Discharge Plan Discharge Patient Disposition: Admitted As Inpatient Admit Provider: Elijah Maddox Clinical Impression: Upper respiratory infection, Hypoxemia, Dehydration, Hypokalemia, Acute on chronic renal insufficiency Condition: Stable Coding Level of Care Code 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
--- NOTE | 2025-03-11 06:32 | XRR_ITS ---
PROCEDURE INFORMATION: Exam: XR Chest Exam date and time: 03/11/2025 6:35 AM Age: 84 years old Clinical indication: Cough and shortness of breath; Prior surgery; Surgery date: 6+ months; Surgery type: Gb; Cough with SOB TECHNIQUE: Imaging protocol: Radiologic exam of the chest. Views: 1 view. COMPARISON: CT angio chest [id number] 08/18/2022 11:04 AM FINDINGS: Lungs: Mild vascular and interstitial prominence. Pleural spaces: Unremarkable. No pleural effusion. No pneumothorax. Heart/Mediastinum: See Vasculature finding. Vasculature: Mild cardiomegaly and uncoiling of the thoracic aorta. Diaphragm: Slight blunting of the right CP angle. Bones/joints: Unremarkable. XR/XR chest 1V portable [id number] IMPRESSION: Mild cardiac decompensation/CHF.
[2025-03-11 06:55] LABS: Hematocrit 34.9 % (37-53); Hemoglobin 11.80 g/dL (11.27-16.99); Mean Corpuscular HGB Conc 33.8 g/dL (30-55); Mean Corpuscular Hemoglobin 30.0 pg (27-33); Mean Corpuscular Volume 88.8 fl (82-101); Nucleated Red Blood Cells % 0 %; Platelet Count 349 10^3/cmm (157-399); Red Blood Count 3.93 10^6/uL (3.85-5.65); White Blood Count 13.55 10^3/uL (3.29-11.43)
[2025-03-11] MEDS: methylPREDNISolone sod succ 125 mg/2 mL INJ IVP (07:01)
[2025-03-11] MEDS: doxycycline 100 MG in sodium chloride 0.9% (plus) 100 ML IV ×2 (07:03→17:44)
[2025-03-11 07:15] LABS: Lactic Sepsis W/Reflex 1.8 mmol/L (0.5-2.2)
[2025-03-11 07:26] LABS: Alanine Aminotransferase 14 U/L (0-41); Albumin Level 3.1 g/dL (3.5-5.2); Alkaline Phosphatase 95 U/L (40-130); Anion Gap 15.7 (5-19); Aspartate Amino Transferase 18 U/L (0-40); Blood Urea Nitrogen 35 mg/dL (8-23); Calcium 8.8 mg/dL (8.5-10.5); Carbon Dioxide 21 mmol/L (22-29); Chloride 102 mmol/L (98-107); Globulin 3.8 g/dL (1.3-4.6); Glucose 135 mg/dL (65-115); NT Pro B Type Natriuretic Pept 2661 pg/mL (0-450); Osmolality Calculated 292 mOsm/kg (285-295); Sodium 136 mmol/L (136-145); Total Protein 6.9 g/dL (6.6-8.7)
[2025-03-11 07:28] LABS: ABG PCO2 34.3 mmHg (35-45); ABG PH Result 7.38 (7.35-7.45); Alveolar-Arterial Oxygen Gradi 6.5 mmHg (5-10); Arterial Blood Gas Hematocrit 31.3 % (42-52); Blood Gas Operator Identificat AMH; Blood Gas Sample Site Brachial, left; Blood Gas Sample Type Arterial; Carboxyhemoglobin 0.2 %THgb (0.4-20.1); Glucose Level-ABG 122.0 mg/dL (70-115); HCO3 ABG 20.3 mmol/L (22-26); Ionized Calcium Level - ABG 1.2 mmol/L (1.1-1.4); Methemoglobin 0.4 % (0.4-1.5); Oxygen Saturation ABG 88.4; PO2 ABG 56.5 mmHg (80.0-100.0); PO2 FiO2 Ratio Arterial Blood 269; Potassium Level - ABG 2.4 mmol/L (3.5-5.0); Sodium Level - ABG 138.0 mmol/L (131-143)
[2025-03-11 07:29] LABS: Potassium 2.7 mmol/L (3.5-5.1)
--- NOTE | 2025-03-11 07:46 | PC.NURSE ---
Per verbal order from Dr guillen- Place pt on oxygen at 2lnc. PT sats at RA 90-91% but with abg results oxygen added. Dr Guillen in room to explain to pt reasoning for oxygen and pt placed on 2l nc.
[2025-03-11 07:52] LABS: Respiratory Syncytial Virus Ce NEGATIVE (Negative); SARS-CoV-2 PCR NEGATIVE (Negative)
[2025-03-11] MEDS: levofloxacin-dextrose 5 % 750 MG/150 ML PREMIX 100 MG IV (07:59)
[2025-03-11] MEDS: potassium chloride oral liq 20 mEq/15 mL UDC 40 MEQ PO (08:02)
--- NOTE | 2025-03-11 08:05 | ECG_ITS ---
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 Measurements Intervals [place] Rate: 72 P: 50 NV: 164 QRS: 27 QRSD: 84 T: 92 QT: 298 QTc: 326 Interpretive Statements SINUS RHYTHM NONSPECIFIC ST & T-WAVE ABNORMALITY No previous ECG available for comparison Electronically Signed On 03-14-2025 22:21:18 Z OS MAINFRAME SYSTEMS PROGRAMMER by Leeroy Scott M.D. [id number] [id number]
[2025-03-11 08:24] LABS: Magnesium 1.6 mg/dL (1.7-2.3)
--- NOTE | 2025-03-11 09:09 | P.HP_ITS ---
Providers/Chief Complaint 2 Admitting Physician: Elijah Maddox MD Chief Complaint: coughing, unable to eat, weakness History of Present Illness Umer Arango is a 84 year old male with a history of hypertension, diabetes mellitus type 2, CKD stage III, coronary arterial artery stenosis, GERD who presented to the ER with complaint of cough and weakness with loss of appetite x 1 week. Patient was seen and treated in the ER by provider who treated the patient for community-acquired pneumonia with IV Levaquin and doxycycline, initiated IV Solu-Medrol and nebulizer therapy. Patient continues to endorse shortness of breath, nonproductive cough, and generalized weakness. Patient denies current chest pain, nausea, vomiting, diarrhea, abdominal pain, recent falls or injuries, dark or tarry stools, any type of bleeding, or syncope. Patient is not oxygen dependent, currently requiring oxygen supplementation 2 L/min by nasal cannula to keep oxygen saturation greater than 90%. Patient is agreeable to admission for continued respiratory support, IV antibiotic therapy, and medical management. All questions and concerns addressed with the patient and his son at time of admission. Review of Systems 2 General: Reports: 10 or more systems reviewed and unremarkable except in HPI and below Medications/Allergies Home Medications ?Medication ?Instructions ?Recorded ?Confirmed ?Last Taken ?Type aspirin 81 mg tablet,delayed 81 mg PO DAILY #90 tabs 0 09/22/23 03/11/25 03/10/25 Rx release (Enteric Coated Aspirin) finasteride 5 mg tablet See Rx Instructions .Route 0 08/22/24 03/11/25 03/10/25 Rx .COMPLEX #90 tabs fluoxetine 20 mg capsule See Rx Instructions .Route 0 08/22/24 03/11/25 03/10/25 Rx .COMPLEX #90 caps hydrochlorothiazide 12.5 mg capsule See Rx Instruction s .Route 10/04/24 03/11/25 03/10/25 Rx .COMPLEX #90 caps amlodipine 5 mg tablet See Rx Instructions .Route 0 12/22/24 03/11/25 03/10/25 Rx .COMPLEX #180 tabs metoprolol tartrate 50 mg tablet 25 mg PO BID 12/22/24 03/11/25 03/10/25 History cholecalciferol (vitamin D3) 50 50 mcg PO DAILY #30 ca ps 12/28/24 03/11/25 03/10/25 Rx mcg (2,000 unit) capsule cyanocobalamin (vitamin B-12) 500 500 mcg PO DAILY #30 tabs 12/28/24 03/11/25 03/10/25 Rx mcg tablet (Vitamin B-12) magnesium 200 mg tablet 200 mg PO DAILY 03/11/2510/2703/10/25 History Allergies Allergy/AdvReac Type Severity Reaction Status Date / Time lisinopril AdvReac Mild Unknown Verified 03/11/25 08:34 PFSH Acute 2 PFSH: Medical History (Updated 03/11/25 @ 09:59 by Lupe Pino, PLAN COORDINATOR) Pancreatic cyst Benign Liver cyst Benign Hypertension Diabetes Surgical History Subclavian artery stenosis Subclavian artery bypass - 06/17/23 - Dr Jeff History of carotid endarterectomy 06/17/23 - Dr Jeff - 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 Const: COMMON NORMALS: patient oriented x3 GENERAL APPEARANCE: cooperative, comfortable and well kempt HENMT: COMMON NORMALS: normocephalic GENERAL EAR: hearing grossly impaired MOUTH: moist mucous membranes abnormal (Dry) THROAT: posterior oropharynx abnormal erythema Eye: COMMON NORMALS: Equal, round and reactive pupils present Lymph: LYMPHATIC: no lymphadenopathy noted Resp: EFFORT & INSPECTION: Yes able to speak in complete sentences and Yes audible wheezes AUSCULTATION: wheezes and diminished lung sounds Cardio: COMMON NORMALS: no JVD, regular rate, S1 normal heart sound present and S2 normal heart sound present GI: COMMON NORMALS: Normal to inspection, nondistended, normoactive bowel sounds present Extremity: COMMON NORMALS: normal to inspection and full ROM Neuro: SENSORIUM/ORIENTATION: Yes alert, Yes oriented to person, Yes oriented to place and Yes oriented to time SPEECH: Other neuro speech findings (rough speech with frequent throat clearing) Psych: COMMON NORMALS: mental status grossly normal Skin: COMMON NORMALS: no rashes or lesions noted Data 03/11/25 06:48 03/11/25 06:48 Micro: Microbiology 03/11/25 06:45 Blood Culture - Preliminary Blood SPECIMEN COLLECTED 03/11/25 06:48 Blood Culture - Preliminary Blood SPECIMEN COLLECTED A&P Assessment and plan 1. Community acquired pneumonia: 2. Hypokalemia: 3. Hypoxemia: 4. Change in voice: 5. CKD (chronic kidney disease): 6. Hypertension: 7. Diabetes: 8. BPH (benign prostatic hyperplasia): Plan: Community-acquired pneumonia Hypoxia - Admitting WBC 13.55 - CXR: Mild cardiac decompensation/CHF...Pendng ECHO - States no known Hx of CHF: proBNP 2661, appear euvolemic on admission - ABG: pH 7.38, pCO2 34.3, PaO2 56.5, HCO3 20.3 - CT chest pending w/o contrast due to renal function - Greatly appreciate respiratory consultation and interventions with Tanisha Payne, adding Acapella - Solu-Medrol 80 mg IV every 8 hour - Initiated on IV Levaquin and Doxycycline in ER, continues IV doxycycline and Rocephin on admission - Pending Blood Cultures x 2 Hypokalemia - Potassium 2.7 - Treated in ER with 40 mEq PO potassium - Repeat potassium and replenish PRN GERD - Protonix 40mg PO Daily CKD-III CRYSTAL - Admitting Cr 2.1, baseline 1.6 - Given 1L NS bolus in ER, hold off on further fluids given concern for vascular congestion - Renally dose medications, avoid nephrotoxic agents Hypertension - Admitting B/p 135/63 - Continue amlodipine and metoprolol - Monitor Diabetes mellitus type 2 - Pending A1C and lipid panel - No longer on home medications - Low-dose sliding scale insulin, POC BPH - Making urine, states no difficulty right now - Resume home medications VTE PPx: SCDs, Lovenox GI PPx: PPI CODE STATUS: Full code PDMP PDMP Reviewed: Not Reviewed Attestations 2 Medical Necessity Statement*: Patient will be admitted inpatient crossing 2 midnights due to community- acquired pneumonia, hypoxia, acute kidney injury, will need IV antibiotics and respiratory interventions, and complex medical management. and High Time for a total of 75 minutes, includes reviewing past or interval history, examining/interviewing patient, placing orders, counseling patient/family/other support, updating patient/family/other support, discussing plan of care with staff, documenting encounter and coordinating care Diagnoses Community acquired pneumonia J18.9 Hypokalemia E87.6 Hypoxemia R09.02 Change in voice R49.9 CKD (chronic kidney disease) N18.9 Hypertension I10 Diabetes E11.9 BPH (benign prostatic hyperplasia) N40.0
--- NOTE | 2025-03-11 09:59 | USCV_ITS ---
Umer Arango Age: 84 Gender: M : 1940 Exam Date: 03/11/2025 11:25 Ordering Phys: Lupe Pino NP Technologist: REMBERTO Exam Location: [facility] [place] Indication: hypertensio, concern for chf BP: 135 / 63 HR: 69 Rhythm: Sinus Technical Quality: Adequate MEASUREMENTS (Male / Female) Normal Values 2D ECHO LV Diastolic Diameter PLAX 3.5 cm 4.2 - 5.9 / 3.9 - 5.3 cm IVS Diastolic Thickness 0.9 cm 0.6 - 1.0 / 0.6 - 0.9 cm IVS Systolic Thickness 1.3 cm LVPW Diastolic Thickness 0.9 cm 0.6 - 1.0 / 0.6 - 0.9 cm LVPW Systolic Thickness 1.5 cm LVOT Diameter 2.0 cm LV Ejection Fraction 2D Teich 79.8 % LV Ejection Fraction MOD 4C 64.9 % LV Ejection Fraction MOD 2C 61.4 % LV Ejection Fraction 2C AL 61.6 % LA Diameter 3.5 cm RA Systolic Volume 4C AL 64.9 ml RA Systolic Volume 4C MOD 58.7 ml LA Sys Volume AL 57.0 cm cubed LA Sys Volume Index AL 28.8 cm cubed/m squared Aorta at Sinotubular Diameter 2.8 cm IVC Diameter 1.3 cm M-MODE LA Ao Ratio MM 1.2 AV Cusp Separation MM 2.3 cm DOPPLER AV Peak Velocity 183.3 cm/s LVOT Peak Velocity 166.0 cm/s AV Area Cont Eq vti 2.2 cm squared AV Area Cont Eq pk 2.9 cm squared MV Peak Velocity 166.0 cm/s MV Area PHT 1.9 cm squared Mitral E to A Ratio 0.7 TV Peak Velocity 206.5 cm/s TR Peak Velocity 288.0 cm/s TR Peak Gradient 33.2 mmHg TR Mean Velocity 222.0 cm/s TR Mean Gradient 21.7 mmHg TR Velocity Time Integral 88.0 cm PV Peak Velocity 114.0 cm/s RV Ejection Time 0.3 s FINDINGS Left Ventricle Normal left ventricular size, systolic function and wall thickness, with no regional wall motion abnormalities. Left ventricular ejection fraction is estimated at 60 %. Grade I/IV diastolic dysfunction (abnormal relaxation filling pattern), normal to mildly elevated filling pressures. Right Ventricle Normal right ventricular size and systolic function. Right Atrium Normal right atrial size. Left Atrium Normal left atrial size. IA Septum Normal appearance of the interatrial septum. Mitral Valve Severely thickened mitral valve. Severe mitral annular calcification. No mitral valve stenosis. Trace mitral valve regurgitation. Aortic Valve Severe aortic valve calcification. Mild aortic valve stenosis, mean gradient 8.1 mmHg, STEFANIE 2.2 cm squared. Mild aortic valve regurgitation. Tricuspid Valve Normal tricuspid valve structure. No tricuspid valve stenosis or regurgitation. Normal pulmonary pressure. Pulmonic Valve Trace pulmonary valve regurgitation. Pericardium No pericardial effusion. Aorta Normal diameter of the aortic root and ascending thoracic aorta. IVC Normal IVC diameter. CONCLUSIONS Normal left ventricular size, systolic function and wall thickness, with no regional wall motion abnormalities. Left ventricular ejection fraction is estimated at 60 %. Grade I/IV diastolic dysfunction (abnormal relaxation filling pattern), normal to mildly elevated filling pressures. Severe aortic valve calcification. Mild aortic valve stenosis, mean gradient 8.1 mmHg, STEFANIE 2.2 cm squared. Mild aortic valve regurgitation. Severely thickened mitral valve. Severe mitral annular calcification. No mitral valve stenosis. Trace mitral valve regurgitation. There is no pericardial effusion. Right atrial pressure is around 5 mm of mercury. Deepti Rooney MD (Electronically Signed) Final Date: 11 March 2025 16:33 S
--- NOTE | 2025-03-11 10:09 | CTR_ITS ---
PROCEDURE INFORMATION: Exam: CT Chest Without Contrast; Diagnostic Exam date and time: 03/11/2025 10:30 AM Age: 84 years old Clinical indication: Dyspnea and hyperventilation; Additional info: Dyspnea, hypoxia TECHNIQUE: Imaging protocol: Diagnostic computed tomography of the chest without contrast. Radiation optimization: All CT scans at this facility use at least one of these dose optimization techniques: automated exposure control; mA and/or kV adjustment per patient size (includes targeted exams where dose is matched to clinical indication); or iterative reconstruction. COMPARISON: CT angio chest [id number] 08/18/2022 11:04 AM RADIATION DOSE METRICS: Total DLP (mGy-cm): 467.15 FINDINGS: Lungs: There are findings of severe emphysema of the lung parenchyma with multifocal opacities involving the posteroinferior upper lobes and both lower lobes. The opacities include peribronchovascular consolidation ground-glass pneumonitis Pleural spaces: There are small bilateral pleural effusions. Heart: There are coronary artery calcifications and aortic valve calcification Lymph nodes: There are mediastinal lymph nodes up to 1.1 cm aortopulmonary window and 1.8 cm pretracheal. Vasculature: Unremarkable. No aortic aneurysm. Diaphragm: There is a moderate-sized hiatus hernia. Liver: Hypodensity present in the liver largest left liver lobe 2.5 cm most suggestive of cysts or hemangiomas stable compared to prior exam Gallbladder and biliary ducts: Patient is post cholecystectomy Pancreas: There are findings of calcification of the pancreas with fusiform dilation of the main pancreatic duct and a cystic lesion at the proximal body and neck of the pancreas stable compared to prior exam and findings raise the possibility of diffuse type I PMT type pancreatic abnormalities for characterization and correlation with MRI abdomen pancreatic protocol with and without contrast and MRCP recommended Bones/joints: Unremarkable. No acute fracture. Soft tissues: Unremarkable. Other findings: There is presence of a 2.4 cm right upper pole cyst. CT/CT chest wo con [id number] IMPRESSION: 1. Findings of severe emphysema with multifocal opacities most concerning for multifocal infectious bronchopneumonia pattern 2. Small pleural effusions 3. Moderate-sized hiatus hernia 4. Findings in the pancreas suggest a possibility of a diffuse type I PMT see above common for recommendations incidental finding 5. Stable liver hypodensities as above 6. Findings of right renal cyst COMMENTS: Consistent with the [employer]'s Incidental Findings Committee white paper (J Am Peri Radiol 2018): Any incidental renal lesion less than 1 cm or classified as too small to characterize, or any incidental cystic renal lesion characterized as simple-appearing, is likely benign. No follow-up imaging is recommended for these lesions per consensus recommendations based on imaging criteria.
[2025-03-11] MEDS: methylPREDNISolone sod succ 125 mg/2 mL INJ 80 MG IVP ×2 (12:40→20:59)
[2025-03-11 13:31] LABS: Potassium 3.0 mmol/L (3.5-5.1)
[2025-03-11 17:22] LABS: Glucose Urine UA 1+ (Normal); Nitrate Urine Negative (Negative); Specific Gravity, Urine 1.019 (1.005-1.030)
[2025-03-11 17:25] LABS: Add Urine Microscopic? YES
[2025-03-11 17:33] LABS: UA Slide Review UA Slide Review Perf
[2025-03-12] VITALS (13 sets, daily range): BP systolic 99–132; BP diastolic 51–68; PULSE 63–87; RESP 16–20; TEMP 36.4–36.8; O2SAT 88–98; BMI 25.2
[2025-03-12 03:59] LABS: Hematocrit 35.7 % (37-53); Hemoglobin 12.10 g/dL (11.27-16.99); Mean Corpuscular HGB Conc 33.9 g/dL (30-55); Mean Corpuscular Hemoglobin 29.8 pg (27-33); Mean Corpuscular Volume 87.9 fl (82-101); Nucleated Red Blood Cells % 0 %; Platelet Count 360 10^3/cmm (157-399); Red Blood Count 4.06 10^6/uL (3.85-5.65); White Blood Count 17.07 10^3/uL (3.29-11.43)
[2025-03-12 04:14] LABS: Cholesterol 93 mg/dL (0-200); HDL Cholesterol 36 mg/dL (60-100); Triglycerides 58 mg/dL (0-150)
[2025-03-12 04:25] LABS: Estmated Average Glucose 143; Hemoglobin A1C 6.6 % (4.0-6.0)
[2025-03-12 04:31] LABS: Alanine Aminotransferase 17 U/L (0-41); Albumin Level 3.4 g/dL (3.5-5.2); Alkaline Phosphatase 101 U/L (40-130); Anion Gap 16.8 (5-19); Aspartate Amino Transferase 18 U/L (0-40); Blood Urea Nitrogen 40 mg/dL (8-23); Calcium 9.3 mg/dL (8.5-10.5); Carbon Dioxide 19 mmol/L (22-29); Chloride 104 mmol/L (98-107); Globulin 2.8 g/dL (1.3-4.6); Glucose 250 mg/dL (65-115); Magnesium 1.6 mg/dL (1.7-2.3); Osmolality Calculated 302 mOsm/kg (285-295); Sodium 137 mmol/L (136-145); Total Protein 6.2 g/dL (6.6-8.7)
[2025-03-12 04:35] LABS: Potassium 2.8 mmol/L (3.5-5.1)
[2025-03-12] MEDS: doxycycline 100 MG in sodium chloride 0.9% (plus) 100 ML IV ×2 (04:55→17:41)
[2025-03-12] MEDS: methylPREDNISolone sod succ 125 mg/2 mL INJ 80 MG IVP ×3 (04:55→20:26)
--- NOTE | 2025-03-12 07:34 | P.PN_ITS ---
Subjective 2 Subjective: Patient is a very pleasant 85-year-old male seen and examined at bedside on hospital rounds today. Patient sitting up at bedside eating breakfast stating that he is still short of breath but he feels much better than he did yesterday. Spoke with patient in detail about his CT results, referral sent for outpatient follow-up with GI. Patient will need an outpatient MRCP. Increased WBC this morning most likely secondary to steroid use. Patient still requiring 1 to 2 L of oxygen, pending oxygen walk test this morning. Potassium 2.8, will replenish orally. Creatinine remains the same, gentle IV fluid hydration initiated with concerns for poor oral intake. Pending speech therapy evaluation and recommendations. Patient denies new or worsening symptoms, we will continue current interventions inpatient. Vitals/I&O/Wt Last Vital Signs Temp 97.7 F 03/12/25 07:33 Pulse 85 03/12/25 07:33 Resp 16 03/12/25 07:33 BP 126/56 03/12/25 07:33 Pulse Ox 94 03/12/25 07:33 O2 Del Method Nasal Cannula 03/12/25 07:33 O2 Flow Rate 2 03/12/25 04:00 03/11/25 03/12/25 03/12/25 22:59 06:59 14:59 Intake Total 1490 / 1830 340 / 2170 Output Total 450 / 450 Balance 1040 / 1380 340 / 1720 Weight last 48 hrs Weight 77.383 kg Weight 79.038 kg Weight 79.379 kg Physical Exam 2 Narrative: Ill-appearing 84-year-old male, sitting up in bed with nonproductive cough and generalized weakness. Const: COMMON NORMALS: patient oriented x3 and alert GENERAL APPEARANCE: c ooperative, comfortable and well kempt ORIENTATION/CONSCIOUSNESS: Yes oriented to person, Yes oriented to place and Yes oriented to time HENMT: COMMON NORMALS: normocephalic HEAD & SCALP: normocephalic GENERAL EAR: hearing grossly impaired MOUTH: moist mucous membranes abnormal (Dry) THROAT: posterior oropharynx abnormal erythema Eye: COMMON NORMALS: Equal, round and reactive pupils present PUPIL: Yes Equal, round and reactive pupils present Neck/C-Spine: COMMON NORMALS: no JVD Lymph: LYMPHATIC: no lymphadenopathy noted Resp: EFFORT & INSPECTION: Yes able to speak in complete sentences and Yes audible wheezes AUSCULTATION: wheezes and diminished lung sounds Cardio: COMMON NORMALS: no JVD, regular rate, S1 normal heart sound present and S2 normal heart sound present RATE: regular rate HEART SOUNDS: S1 normal heart sound present and S2 normal heart sound present GI: COMMON NORMALS: Normal to inspection, nondistended, normoactive bowel sounds present Extremity: COMMON NORMALS: normal to inspection and full ROM Neuro: COMMON NORMALS: patient oriented x3 SENSORIUM/ORIENTATION: Yes alert, Yes oriented to person, Yes oriented to place and Yes oriented to time SPEECH: Other neuro speech findings (rough speech with frequent throat clearing) Psych: COMMON NORMALS: mental status grossly normal APPEARANCE: Yes well kempt Skin: COMMON NORMALS: no rashes or lesions noted GENERAL SKIN EXAM: no rashes or lesions noted Data 03/12/25 03:39 03/12/25 03:39 Micro: Microbiology 03/11/25 06:45 Blood Culture - Preliminary Blood NEGATIVE TO DATE 03/11/25 06:48 Blood Culture - Preliminary Blood NEGATIVE TO DATE A&P Assessment and plan 1. Community acquired pneumonia: 2. Hypokalemia: 3. Hypoxemia: 4. Change in voice: 5. CKD (chronic kidney disease): 6. Hypertension: 7. Diabetes: 8. BPH (benign prostatic hyperplasia): Plan: Community-acquired pneumonia Hypoxia - Admitting WBC 13.55, Repeat 17.07 - CXR: Mild cardiac decompensation/CHF...Pendng ECHO - States no known Hx of CHF: proBNP 2661, appear euvolemic on admission - ABG: pH 7.38, pCO2 34.3, PaO2 56.5, HCO3 20.3 - CT chest w/o contrast: Findings of severe emphysema with multifocal opacities most concerning for multifocal infectious bronchopneumonia pattern, small pleural effusions, moderate size hiatal hernia, findings in the pancreas suggest the possibility of diffuse type I PMT, stable liver hypodensities, findings of right renal cyst. - Greatly appreciate respiratory consultation and interventions with Tanisha Payne, adding Acapella - Solu-Medrol 80 mg IV every 8 hour - Initiated on IV Levaquin and Doxycycline in ER, continues IV doxycycline and Rocephin on admission - Pending Blood Cultures x 2 - Outpatient referral based on CT findings for GI follow-up and MRCP Hypokalemia Hypomagnesemia - Potassium 2.7--<2.8 - Magnesium 1.6 - Oral Potassium 40 mEq x 2, IV magnesium 2g - Monitor and replenish PRN GERD - Protonix 40mg PO Daily CKD-III CRYSTAL - Admitting Cr 2.1, baseline 1.6 --<2.1 - Given 1L NS bolus in ER - Gentle IV fluids x 1L - Renally dose medications, avoid nephrotoxic agents Hypertension - Admitting B/p 135/63 - Continue amlodipine and metoprolol - Monitor Diabetes mellitus type 2 - A1C 6.6 - No longer on home medications - Low-dose sliding scale insulin, POC BPH - Making urine, states no difficulty right now - Continue home medications VTE PPx: SCDs, Lovenox GI PPx: PPI CODE STATUS: Full code PDMP PDMP Reviewed: Not Reviewed Attestations 2 Medical Necessity Statement*: Patient will continue inpatient interventions crossing 2 midnights due to community-acquired pneumonia, hypoxia, acute kidney injury, will continue IV antibiotics and respiratory interventions, and complex medical management. Coding Level of Care Code 96859 Diagnoses Community acquired pneumonia J18.9 Hypokalemia E87.6 Hypoxemia R09.02 Change in voice R49.9 CKD (chronic kidney disease) N18.9 Hypertension I10 Diabetes E11.9 BPH (benign prostatic hyperplasia) N40.0
[2025-03-12] MEDS: cefTRIAXone 1,000 mg SDV 1000 MG IVP (08:28)
[2025-03-12] MEDS: sodium chlor 0.9% + KCl 20 mEq 20 MEQ/1,000 ML BAG 75 MEQ IV (08:29)
[2025-03-12] MEDS: magnesium sulfate premix 2 GM/50 ML PIGGYBACK IV (09:16)
[2025-03-13] VITALS (7 sets, daily range): BP systolic 111–139; BP diastolic 63–71; PULSE 65–74; RESP 16–19; TEMP 36.3–36.8; O2SAT 91–95; BMI 25.2
[2025-03-13] MEDS: doxycycline 100 MG in sodium chloride 0.9% (plus) 100 ML IV (05:40)
[2025-03-13] MEDS: cefTRIAXone 1,000 mg SDV 1000 MG IVP (05:40)
[2025-03-13] MEDS: methylPREDNISolone sod succ 125 mg/2 mL INJ 80 MG IVP (05:41)
[2025-03-13 06:01] LABS: Hematocrit 37.5 % (37-53); Hemoglobin 12.60 g/dL (11.27-16.99); Mean Corpuscular HGB Conc 33.6 g/dL (30-55); Mean Corpuscular Hemoglobin 30.1 pg (27-33); Mean Corpuscular Volume 89.7 fl (82-101); Nucleated Red Blood Cells % 0 %; Platelet Count 412 10^3/cmm (157-399); Red Blood Count 4.18 10^6/uL (3.85-5.65); White Blood Count 29.56 10^3/uL (3.29-11.43)
[2025-03-13 06:20] LABS: Alanine Aminotransferase 26 U/L (0-41); Albumin Level 3.4 g/dL (3.5-5.2); Alkaline Phosphatase 148 U/L (40-130); Anion Gap 16.9 (5-19); Aspartate Amino Transferase 31 U/L (0-40); Blood Urea Nitrogen 40 mg/dL (8-23); Calcium 9.5 mg/dL (8.5-10.5); Carbon Dioxide 19 mmol/L (22-29); Chloride 109 mmol/L (98-107); Globulin 3.3 g/dL (1.3-4.6); Glucose 250 mg/dL (65-115); Magnesium 2.1 mg/dL (1.7-2.3); Osmolality Calculated 310 mOsm/kg (285-295); Potassium 3.9 mmol/L (3.5-5.1); Sodium 141 mmol/L (136-145); Total Protein 6.7 g/dL (6.6-8.7)
--- NOTE | 2025-03-13 09:17 | P.DS_ITS ---
Discharge Providers Date of Admission: 03/11/25 07:47 Date of Discharge: March 13, 2025 Attending Provider at Admission: Elijah Maddox MD Attending Provider at Discharge: Lupe Pino NP Diagnoses at Discharge Discharge Diagnosis 1. Community acquired pneumonia: 2. Hypokalemia: 3. Hypoxemia: 4. Change in voice: 5. CKD (chronic kidney disease): 6. Hypertension: 7. Diabetes: 8. BPH (benign prostatic hyperplasia): Reason for Visit Reason for Visit: coughing, unable to eat, weakness Brief History: Admission: Umer Arango is a 84 year old male with a history of hypertension, diabetes mellitus type 2, CKD stage III, coronary arterial artery stenosis, GERD who presented to the ER with complaint of cough and weakness with loss of appetite x 1 week. Patient was seen and treated in the ER by provider who treated the patient for community-acquired pneumonia with IV Levaquin and doxycycline, initiated IV Solu-Medrol and nebulizer therapy. Patient continues to endorse shortness of breath, nonproductive cough, and generalized weakness. Patient denies current chest pain, nausea, vomiting, diarrhea, abdominal pain, recent falls or injuries, dark or tarry stools, any type of bleeding, or syncope. Patient is not oxygen dependent, currently requiring oxygen supplementation 2 L/min by nasal cannula to keep oxygen s aturation greater than 90%. Patient is agreeable to admission for continued respiratory support, IV antibiotic therapy, and medical management. All questions and concerns addressed with the patient and his son at time of admission. Hospital Course Hospital Course Community-acquired pneumonia Hypoxia - Admitting WBC 13.55, Repeat 17.07 - CXR: Mild cardiac decompensation/CHF...Pendng ECHO - States no known Hx of CHF: proBNP 2661, appear euvolemic on admission - ABG: pH 7.38, pCO2 34.3, PaO2 56.5, HCO3 20.3 - CT chest w/o contrast: Findings of severe emphysema with multifocal opacities most concerning for multifocal infectious bronchopneumonia pattern, small pleural effusions, moderate size hiatal hernia, findings in the pancreas suggest the possibility of diffuse type I PMT, stable liver hypodensities, findings of right renal cyst. - Greatly appreciate respiratory consultation and interventions with Tanisha Payne, adding Acapella - Solu-Medrol 80 mg IV every 8 hour - Initiated on IV Levaquin and Doxycycline in ER, continues IV doxycycline and Rocephin on admission - Pending Blood Cultures x 2 - Outpatient referral based on CT findings for GI follow-up and MRCP - ECHO: Normal left ventricular size, systolic function and wall thickness, with no regional wall motion abnormalities. Left ventricular ejection fraction is estimated at 60 %. Grade I/IV diastolic dysfunction (abnormal relaxation filling pattern), normal to mildly elevated filling pressures. Severe aortic valve calcification. Mild aortic valve stenosis, mean gradient 8.1 mmHg, STEFANIE 2.2 cm squared. Mild aortic valve regurgitation. Severely thickened mitral valve. Severe mitral annular calcification. No mitral valve stenosis. Trace mitral valve regurgitation. There is no pericardial effusion. Right atrial pressure is around 5 mm of mercury. Hypokalemia, resolved Hypomagnesemia, resolved - Potassium 2.7--<2.8--<3.9 - Magnesium 1.6--<2.1 - Oral Potassium 40 mEq x 2, IV magnesium 2g - Monitor and replenish PRN GERD - Protonix 40mg PO Daily CKD-III CRYSTAL - Admitting Cr 2.1, baseline 1.6 --<2.1--<2.2 - Given 1L NS bolus in ER - Gentle IV fluids x 1L - Renally dose medications, avoid nephrotoxic agents - Patient management Hypertension - Admitting B/p 135/63 - Continue amlodipine and metoprolol - Monitor Diabetes mellitus type 2 - A1C 6.6 - No longer on home medications - Low-dose sliding scale insulin, POC BPH - Making urine, states no difficulty right now - Continue home medications Discharge: Clinically much improved, elevated WBC secondary to steroid use, will discontinue steroids at discharge with improved respirations. Transitioning from IV antibiotics to oral antibiotics, negative blood cultures x 2. Patient has scheduled follow-up for outpatient MRI dedicated with and without contrast, referral to GI and recommendations for MRCP. Patient is advised to follow-up with primary care provider in 1 to 2 days of discharge. Patient did qualify for home oxygen, discharges home oxygen and home nebulizer prescribed with continued DuoNeb and budesonide. Patient states that he does not want to use home oxygen, advised that it would be in his best interest to continue to keep his oxygen saturation greater than 90% and to use this at home, patient reluctantly agrees. Extensive education given to patient and his family, all questions and concerns addressed prior to discharge. Physical Exam Narrative: 84-year-old male, sitting up in bed, cli nically much improved in no apparent distress. Const: COMMON NORMALS: patient oriented x3 and alert GENERAL APPEARANCE: cooperative, comfortable and well kempt ORIENTATION/CONSCIOUSNESS: Yes oriented to person, Yes oriented to place and Yes oriented to time HENMT: COMMON NORMALS: normocephalic HEAD & SCALP: normocephalic GENERAL EAR: hearing grossly impaired MOUTH: moist mucous membranes abnormal (Dry) THROAT: posterior oropharynx abnormal erythema Eye: COMMON NORMALS: Equal, round and reactive pupils present PUPIL: Yes Equal, round and reactive pupils present Neck/C-Spine: COMMON NORMALS: no JVD Lymph: LYMPHATIC: no lymphadenopathy noted Resp: EFFORT & INSPECTION: Yes able to speak in complete sentences and Yes audible wheezes AUSCULTATION: wheezes and diminished lung sounds Cardio: COMMON NORMALS: no JVD, regular rate, S1 normal heart sound present and S2 normal heart sound present RATE: regular rate HEART SOUNDS: S1 normal heart sound present and S2 normal heart sound present GI: COMMON NORMALS: Normal to inspection, nondistended, normoactive bowel sounds present Extremity: COMMON NORMALS: normal to inspection and full ROM Neuro: COMMON NORMALS: patient oriented x3 SENSORIUM/ORIENTATION: Yes alert, Yes oriented to person, Yes oriented to place and Yes oriented to time SPEECH: Other neuro speech findings (rough speech with frequent throat clearing) Psych: COMMON NORMALS: mental status grossly normal APPEARANCE: Yes well kempt Skin: COMMON NORMALS: no rashes or lesions noted GENERAL SKIN EXAM: no rashes or lesions noted Discharge Data Studies Completed and Pending Completed Studies During Hospitalization Category Date Time Status CT chest wo con [id number] Routine Cat Scan 03/11/25 10:09 Completed XR chest 1V portable [id number] Stat Exams 03/11/25 06:32 Completed CV. echo complete* [id number] Routine Ultrasound 03/11/25 09:59 Completed Pending at discharge Category Date Time Status Blood Culture Stat Lab 03/11/25 06:45 Results Complete Blood Count w/Auto AM LABS Lab 03/14/25 04:00 Ordered Comprehensive Metabolic Panel AM LABS Lab 03/14/25 04:00 Ordered Magnesium AM LABS Lab 03/14/25 04:00 Ordered Radiology Impressions Chest X-Ray 03/11/25 06:32 IMPRESSION: Mild cardiac decompensation/CHF. Chest CT 03/11/25 10:09 IMPRESSION: 1. Findings of severe emphysema with multifocal opacities most concerning for multifocal infectious bronchopneumonia pattern 2. Small pleural effusions 3. Moderate-sized hiatus hernia 4. Findings in the pancreas suggest a possibility of a diffuse type I PMT see above common for recommendations incidental finding 5. Stable liver hypodensities as above 6. Findings of right renal cyst COMMENTS: Consistent with the [employer]'s Incidental Findings Committee white paper (J Am Peri Radiol 2018): Any incidental renal lesion less than 1 cm or classified as too small to characterize, or any incidental cystic renal lesion characterized as simple-appearing, is likely benign. No follow-up imaging is recommended for these lesions per consensus recommendations based on imaging criteria. Laboratory Results WBC 29.56 10^3/uL (3.29-11.43) H 03/13/25 05:44 RBC 4.18 10^6/uL (3.85-5.65) 03/13/25 05:44 Hgb 12.60 g/dL (11.27-16.99) 03/13/25 05:44 Hct 37.5 % (37-53) 03/13/25 05:44 MCV 89.7 fl (82-101) 03/13/25 05:44 MCH 30.1 pg (27-33) 03/13/25 05:44 MCHC 33.6 g/dL (30-55) 03/13/25 05:44 RDW 13.2 % (12.1-15.1) 03/13/25 05:44 Plt Count 412 10^3/cmm (157-399) H 03/13/25 05:44 MPV 10.5 fL (7.4-10.4) H 03/13/25 05:44 Neut % (Auto) 91.0 % 03/13/25 05:44 Lymph % (Auto) 2.7 % 03/13/25 05:44 [place] % (Auto) 3.3 % 03/13/25 05:44 Eos % (Auto) 0.0 % 03/13/25 05:44 Baso % (Auto) 0.2 % 03/13/25 05:44 Neut # (Auto) 26.86 10^3/uL (1.8-7.7) H 03/13/25 05:44 Lymph # (Auto) 0.8 10^3/uL (0.8-4.8) 03/13/25 05:44 [place] # (Auto) 1.0 10^3/uL (0.2-0.9) H 03/13/25 05:44 Eos # (Auto) 0.0 10^3/uL (0.0-0.8) 03/13/25 05:44 Baso # (Auto) 0.1 10^3/uL (0.0-0.1) 03/13/25 05:44 Nucleated RBC % (auto) 0 % 03/13/25 05:44 Nucleated RBCs # 0.0 /100WBC 03/13/25 05:44 Specimen Type Arterial 03/11/25 07:17 Sample Site Brachial, left 03/11/25 07:17 ABG pH 7.38 (7.35-7.45) 03/11/25 07:17 ABG pCO2 34.3 mmHg (35-45) L 03/11/25 07:17 ABG pO2 56.5 mmHg (80.0-100.0) L 03/11/25 07:17 ABG PO2/FiO2 Ratio 269 03/11/25 07:17 ABG HCO3 20.3 mmol/L (22-26) L 03/11/25 07:17 ABG O2 Saturation 88.4 03/11/25 07:17 ABG Base Excess -4.2 mmol/L (-2.0-2.0) L 03/11/25 07:17 Silvio Test N/a 03/11/25 07:17 A-a O2 Gradient 6.5 mmHg (5-10) 03/11/25 07:17 Hematocrit 31.3 % (42-52) L 03/11/25 07:17 Hgb O2 Saturation 88.0 % (95-100) L 03/11/25 07:17 Carboxyhemoglobin 0.2 %THgb (0.4-20.1) L 03/11/25 07:17 Methemoglobin 0.4 % (0.4-1.5) 03/11/25 07:17 Total Hemoglobin 10.2 g/dL (14-18) L 03/11/25 07:17 Sodium 138.0 mmol/L (131-143) 03/11/25 07:17 Potassium 2.4 mmol/L (3.5-5.0) L 03/11/25 07:17 Glucose 122.0 mg/dL (70-115) H 03/11/25 07:17 Ionized Calcium 1.2 mmol/L (1.1-1.4) 03/11/25 07:17 O2 Delivery Device Room air 03/11/25 07:17 FiO2 21.0 % 03/11/25 07:17 Job Site Supervisor ID [id number] 03/11/25 07:17 Sodium 141 mmol/L (136-145) 03/13/25 05:44 Potassium 3.9 mmol/L (3.5-5.1) 03/13/25 05:44 Chloride 109 mmol/L (98-107) H 03/13/25 05:44 Carbon Dioxide 19 mmol/L (22-29) L 03/13/25 05:44 Anion Gap 16.9 (5-19) 03/13/25 05:44 BUN 40 mg/dL (8-23) H 03/13/25 05:44 Creatinine 2.2 mg/dL (0.7-1.2) H 03/13/25 05:44 GFR Calculation Not Reportable 03/13/25 05:44 Glucose 250 mg/dL (65-115) H 03/13/25 05:44 Estimat Average Glucose 143 03/12/25 03:39 Hemoglobin A1c 6.6 % (4.0-6.0) H 03/12/25 03:39 Calculated Osmolality 310 mOsm/kg (285-295) H 03/13/25 05:44 Lactic Acid 1.8 mmol/L (0.5-2.2) 03/11/25 06:48 Calcium 9.5 mg/dL (8.5-10.5) 03/13/25 05:44 Magnesium 2.1 mg/dL (1.7-2.3) 03/13/25 05:44 Total Bilirubin 0.2 mg/dL (0.15-1.2) 03/13/25 05:44 AST 31 U/L (0-40) 03/13/25 05:44 ALT 26 U/L (0-41) 03/13/25 05:44 Alkaline Phosphatase 148 U/L (40-130) H 03/13/25 05:44 NT-Pro-B Natriuret Pep 2661 pg/mL (0-450) H 03/11/25 06:48 Total Protein 6.7 g/dL (6.6-8.7) 03/13/25 05:44 Albumin 3.4 g/dL (3.5-5.2) L 03/13/25 05:44 Globulin 3.3 g/dL (1.3-4.6) 03/13/25 05:44 Triglycerides 58 mg/dL (0-150) 03/12/25 03:39 Cholesterol 93 mg/dL (0-200) 03/12/25 03:39 LDL Cholesterol, Calc 45 mg/dL (50-129) L 03/12/25 03:39 HDL Cholesterol 36 mg/dL (60-100) L 03/12/25 03:39 LDL/HDL Ratio 1.25 RATIO (0.00-3.22) 03/12/25 03:39 Cholesterol/HDL Ratio 2.58 mg/dL (1.0-5.00) 03/12/25 03:39 Urine Color Yellow (Yellow) 03/10/25 17:12 Urine Appearance Cloudy (CLEAR) A 03/10/25 17:12 Urine pH 5.0 (5-7) 03/10/25 17:12 Ur Specific [place] 1.019 (1.005-1.030) 03/10/25 17:12 Urine Protein 1+ (Negative) A 03/10/25 17:12 Urine Glucose (UA) 1+ (Normal) H 03/10/25 17:12 Urine Ketones Negative (Negative) 03/10/25 17:12 Urine Blood Negative (Negative) 03/10/25 17:12 Urine Nitrate Negative (Negative) 03/10/25 17:12 Urine Bilirubin Negative (Negative) 03/10/25 17:12 Urine Urobilinogen 1.0 mg/dL (Negative) 03/10/25 17:12 Ur Leukocyte Esterase Negative (Negative) 03/10/25 17:12 Urine RBC 0-2 /hpf (0-2) 03/10/25 17:12 Urine WBC 0-5 /hpf (0-5) 03/10/25 17:12 Ur Squamous Epith Cells 0-5 /hpf (0-5) 03/10/25 17:12 Amorphous Sediment Not Reportable 03/10/25 17:12 Urine Bacteria None seen /hpf (NONE) 03/10/25 17:12 Hyaline Casts 15.28 /lpf 03/10/25 17:12 Fine Granular Casts 5-10 /lpf H 03/10/25 17:12 Influenza A (PCR) Negative (Negative) 03/11/25 06:39 Influenza Type B (PCR) Negative (Negative) 03/11/25 06:39 RSV (PCR) Negative (Negative) 03/11/25 06:39 SARS-CoV-2 (PCR) Negative (Negative) 03/11/25 06:39 Vitals Last Vital Signs Temp 97.4 F L 03/13/25 08:00 Pulse 71 03/13/25 08:00 Resp 16 03/13/25 08:00 BP 139/71 03/13/25 08:00 Pulse Ox 91 03/13/25 08:00 O2 Del Method Nasal Cannula 03/13/25 08:00 O2 Flow Rate 1 03/13/25 07:33 Discharge Plan Discharge Patient Disposition: Home Condition: Stable Prescriptions: New pantoprazole 40 mg Tablet,Delayed Release (Dr/Ec) 40 mg PO DAILY 30 Days Qty: 30 0RF budesonide 0.5 mg/2 mL Suspension For Nebulization 0.5 mg inhalation BID.RESPIRATORY 30 Days Qty: 120 0RF ipratropium-albuterol 0.5 mg-3 mg(2.5 mg base)/3 mL solution for nebulization 3 ml inhalation Q8H PRN (Reason: shortness of breath) Qty: 90 0RF doxycycline hyclate 100 mg capsule 100 mg PO BID 7 Days Qty: 14 0RF cefdinir 300 mg capsule 300 mg PO BID 10 Days Qty: 20 0RF Continued amlodipine 5 mg tablet See Rx Instructions .ROUTE .COMPLEX Qty: 180 3RF Dose Instruction: TAKE 1 TABLET BY MOUTH TWO TIMES DAILY Rx Instructions: TAKE 1 TABLET BY MOUTH TWICE DAILY metoprolol tartrate 50 mg tablet 25 mg PO BID aspirin [Enteric Coated Aspirin] 81 mg tablet,delayed release (DR/EC) 81 mg PO DAILY Qty: 90 3RF fluoxetine 20 mg capsule See Rx Instructions .ROUTE .COMPLEX Qty: 90 2RF Dose Instruction: TAKE 1 CAPSULE BY MOUTH EVERY DAY Rx Instructions: TAKE 1 CAPSULE BY MOUTH EVERY DAY finasteride 5 mg tablet See Rx Instructions .ROUTE .COMPLEX Qty: 90 2RF Dose Instruction: TAKE 1 TABLET BY MOUTH EVERY DAY Rx Instructions: TAKE 1 TABLET BY MOUTH EVERY DAY cyanocobalamin (vitamin B-12) [Vitamin B-12] 500 mcg tablet 500 mcg PO DAILY Qty: 30 6RF cholecalciferol (vitamin D3) 50 mcg (2,000 unit) capsule 50 mcg PO DAILY Qty: 30 6RF magnesium 200 mg Tablet 200 mg PO DAILY Held hydrochlorothiazide 12.5 mg capsule See Rx Instructions .ROUTE .COMPLEX Qty: 90 3RF Hold Instructions: Resume on 04/05/25. Hold in the setting of hypotension, resume under the direction of primary care provider Dose Instruction: TAKE 1 CAPSULE BY MOUTH EVERY DAY Rx Instructions: TAKE 1 CAPSULE BY MOUTH EVERY DAY Discharge Order = DC NOW: Discharge Order (Routine); Ordered 03/13/25 Ordered By: Lupe Pino Other Ambulatory Orders: DME: Nebulizer with Neb Kit (Order) Location: None Selected Ordered By: Lupe Pino DME: Oxygen (Order) Location: None Selected Ordered By: Lupe Pino Referrals: [facility] [Outside] - 1 week Referral Note: CT findings with: type I PMT type pancreatic abnormalities for characterization and correlation with MRI abdomen pancreatic protocol with and without contrast and MRCP recommended. We have notified your physician's clinic of the need for a follow-up appointment to be scheduled. If you have not heard from them within the next 2 business days, please call them directly. [facility] [place] [Outside] David Garg MD [Physician, Family Practice] Referral Note: We have notified your physician's clinic of the need for a follow-up appointment to be scheduled. If you have not heard from them within the next 2 business days, please call them directly. Discharge Diet: Cardiac and Diabetic Discharge Activity: Resume usual activity Patient Instructions: Doxycycline (By mouth), Ipratropium (By breathing), Budesonide (By breathing), Cefdinir (By mouth) (Omnicef), Pantoprazole (By mouth), Community Acquired Pneumonia (DC), Hypoxia (GEN), Opioid Safety, Patient Portal & Des Instructions Discharge Attestations Time Spent in Discharge Care*: greater than 30 min Quality Metrics Clinical Quality Measures [ No reported AMI, CVA or VTE this stay] Coding Level of Care Code 83853 Diagnoses Community acquired pneumonia J18.9 Hypokalemia E87.6 Hypoxemia R09.02 Change in voice R49.9 CKD (chronic kidney disease) N18.9 Hypertension I10 Diabetes E11.9 BPH (benign prostatic hyperplasia) N40.0
== END 2025-03-13 12:00 | disposition home or self-care (01) | DRG 194 ==
LOC: ER 07:50 → MEDSURG 08:01
PROVIDERS: Admitting Provider Family Medicine; Emergency Provider Emergency Medicine; Visit Provider Registered Nurse
DX: J18.9 Pneumonia, unspecified organism (principal); K86.2 Cyst of pancreas; N17.9 Acute kidney failure, unspecified; E87.6 Hypokalemia; R09.02 Hypoxemia; I12.9 Hypertensive chronic kidney disease with stage 1 through stage 4 chronic kidney disease, or unspecified chronic kidney disease; E11.22 Type 2 diabetes mellitus with diabetic chronic kidney disease; N18.30 Chronic kidney disease, stage 3 unspecified; N40.0 Benign prostatic hyperplasia without lower urinary tract symptoms; I25.10 Atherosclerotic heart disease of native coronary artery without angina pectoris; K21.9 Gastro-esophageal reflux disease without esophagitis; E83.42 Hypomagnesemia; Z79.82 Long term (current) use of aspirin; Z87.891 Personal history of nicotine dependence
CPT/HCPCS: 36415; 36600; 71045; 71250; 80051; 80053; 80061; 81001; 82330; 82805; 83036; 83605; 83735; 83880; 84132; 85025; 87040; 87637; 92523; 92610; 93005; 93306; 94640; 94760; 96365; 96367; 96372; 96375; 99285; J0696; J1650; J1956; J2919; J3475; J3480; J3490; J7030; J7626; J9999

== ENCOUNTER → 2025-03-23 11:43 | Outpatient (BNVA) | payer MEDICARE, OTHER, SELFPAY | PROVIDERS: PCP Family Medicine; Visit Provider Family Medicine | DX: Z51.81 Encounter for therapeutic drug level monitoring (principal); J18.9 Pneumonia, unspecified organism | CPT/HCPCS: 80053; 85025; 86140 ==

== ENCOUNTER 2025-03-26 09:00 | Inpatient (IN) | payer MEDICARE, OTHER, SELFPAY ==
--- OUTSIDE RECORDS SUMMARY | 2024-09-14 05:00 | XMS_ITS ---
Author Organization [facility] Address [address] [place] [address] Care Team Providers Care Assortment Planner Name Role Phone Shellie Maximus Unavailable [phone] REASON FOR VISIT 1 year f/u Carotid Doppler hx of CEA and right carotid to subclavian bypass Encounters Encounter Location Date Provider Diagnosis [facility] [address] [place] [address] 09/14/2024 Maximus Hensley Plan Of Treatment No Information Progress Notes * Umer ARANGODOB:[birth year] (85 yo M)Acc No.[id number]:09/14/2024 Patient: Umer Blackwell Provider: Lyubov Hensley MD :1940 A ge:84 Y S ex:Male Date:09/14/2024 Address:[facility] [address] [id number] Subjective: * Chief Complaints: * 1 year f/u Carotid Doppler hx of CEA and right carotid to subclavian bypass Billing Information: * Procedure Codes: * Electronic signature of Maximus Hensley MD on 03/26/2025 at 09:16 AM CORPORATE STATISTICAL FINANCIAL ANALYST Sign off status: Pending * Provider: Lyubov Hensley MD Date: 0 09/14/2024 Generated for Galen de anda/Christiane/Brittonitting on: 1 05/27/2024 09:16 AM CORPORATE STATISTICAL FINANCIAL ANALYST
--- OUTSIDE RECORDS SUMMARY | 2024-09-14 05:30 | XMS_ITS ---
Author Organization [facility] Address [address] [place] [address] Care Team Providers Care Director Of Laboratory Operations Name Role Phone Maximus Hensley Unavailable [phone] Roro Hobbs Unavailable [phone] REASON FOR VISIT 1 year f/u Carotid Doppler hx CEA and right carotid to subclavian bypass Encounters Encounter Location Date Provider Diagnosis [facility] [address] [place] [address] 09/14/2024 Roro Hobbs Plan Of Treatment No Information Progress Notes * Umer ARANGODOB:[birth year] (85 yo M)Acc No.[id number]:09/14/2024 Progress Notes Patient: Umer Blackwell Provider: Connie Hobbs CNP :1940 A ge:84 Y S ex:Male Date:09/14/2024 Address:[facility] [address] [id number] Subjective: * Chief Complaints: * 1 year f/u Carotid Doppler hx CEA and right carotid to subclavian bypass Billing Information: * Procedure Codes: Care Plan Details* * Electronic signature of Jeffrey Hobbs CNP on 03/26/2025 at 09:16 AM RETAIL PRESENTATION SPECIALIST Sign off status: Pending * Provider: Connie Hobbs CNP Date: 0 09/14/2024 Generated for Printi ng/Faxing/eTransmitting on: 1 05/27/2024 09:16 AM RETAIL PRESENTATION SPECIALIST
[2025-03-26] VITALS (21 sets, daily range): BP systolic 91–143; BP diastolic 44–90; PULSE 61–89; RESP 16–31; TEMP 36.8; O2SAT 85–96; BMI 25.8
--- NOTE | 2025-03-26 09:13 | XR_ITS ---
WS: [id number] Portable AP upright chest, 03/26/2025 Clinical Data: Shortness of breath Comparison: Portable chest, 03/11/2025 Findings: The bilateral patchy opacities in both lungs appear more dense. No nodules or masses are seen. The heart is slightly enlarged. No pneumothorax is present. The aortic arch shows tortuosity as does the descending thoracic aorta. Monitor leads are on the chest wall. XR/XR chest 1V portable [id number] Impression: 1. Increase in density of bilateral patchy opacities which may represent worsen ing pneumonia. 2. Cardiomegaly and atherosclerosis.
--- NOTE | 2025-03-26 09:14 | ECG_ITS ---
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
--- NOTE | 2025-03-26 09:14 | ED_ITS ---
HPI - SOB/Dyspnea 2 General: Chief Complaint: Shortness of Breath/Dyspnea Stated Complaint: SOB, weakness Time Seen by Provider: 03/26/25 09:12 History of Present Illness: HPI Narrative: 85-year-old man with a history of hypert ension, diabetes, recent hypoxemic respiratory failure requiring oxygen, chronic kidney disease, carotid artery stenosis and BPH who presents the emergency room with worsening shortness of breath and increased oxygen requirements. he was discharged from the hospital on 03 13, almost 2 weeks ago on oxygen and antibiotics. He had been treated for community-acquired pneumonia, hypoxemia and sent home. Over the weekend he has had increased requirements of oxygen. He had increased from 2 to 4 L and now he is hypoxemic on 4 L no chest pain. No altered mental status. No increased lower extremity swelling. No abdominal pain. No vomiting. Related Data Home Medications ?Medication ?Instructions ?Recorded ?Confirmed metoprolol tartrate 50 mg tablet 25 mg PO BID 12/22/24 03/26/25 magnesium 200 mg tablet 200 mg PO DAILY 03/11/25 amlodipine 5 mg tablet 5 mg PO BID 03/26/25 5 finasteride 5 mg tablet 5 mg PO DAILY 03/26/2503/26 fluoxetine 20 mg capsule 20 mg PO DAILY 03/26/2503/06 hydrochlorothiazide 12.5 mg capsule 12.5 mg PO DAILY 1 05/27/24 03/26/25 Previous Rx's ?Medication ?Instructions ?Recorded aspirin 81 mg tablet,delayed 81 mg PO DAILY #90 tabs 0 09/22/23 release (Enteric Coated Aspirin) cholecalciferol (vitamin D3) 50 50 mcg PO DAILY #30 ca ps 12/28/24 mcg (2,000 unit) capsule cyanocobalamin (vitamin B-12) 500 500 mcg PO DAILY #30 tabs 12/28/24 mcg tablet (Vitamin B-12) budesonide 0.5 mg/2 mL suspension 0.5 mg (2 mL) inhala tion 03/13/25 for nebulization BID.RESPIRATORY 30 days #120 mL ipratropium 0.5 mg-albuterol 3 mg 3 ml inhalation Q8H PRN shortness 03/13/25 (2.5 mg base)/3 mL nebulization of breath #90 mL soln pantoprazole 40 mg tablet,delayed 40 mg PO DAILY 30 da ys #30 tabs 03/13/25 release Allergies Allergy/AdvReac Type Severity Reaction Status Date / Time lisinopril AdvReac Mild Unknown Verified 03/11/25 08:34 Review of Systems 2 Narrative: Constitutional symptoms: Negative except as documented in HPI. Skin symptoms: Negative except as documented in HPI. Eye symptoms: Negative except as documented in HPI. ENMT symptoms: Negative except as documented in HPI. Respiratory symptoms: Negative except as documented in HPI. Cardiovascular symptoms: Negative except as documented in HPI. Gastrointestinal symptoms: Negative except as documented in HPI. Genitourinary symptoms: Negative except as documented in HPI. Musculoskeletal symptoms: Negative except as documented in HPI. Neurologic symptoms: Negative except as documented in HPI. Psychiatric symptoms: Negative except as documented in HPI. Endocrine symptoms: Negative except as documented in HPI. PFSH ED 2 PFSH: Medical History (Updated 03/12/25 @ 16:21 by Lupe Pino NP) Pancreatic cyst Benign Liver cyst Benign Hypertension Diabetes Surgical History Subclavian artery stenosis Subclavian artery bypass - 06/17/23 - Dr Jeff History of carotid endarterectomy 06/17/23 - Dr Jeff - [facility] History of bilateral tympanoplasty History of appendectomy History of cholecystectomy Family History Brother CAD (coronary artery disease) of MD Mother Atrial fibrillation Social History Smoking and tobacco/nicotine status: never used tobacco/nicotine Quit status (tobacco/nicotine): has quit using Year quit tobacco: 1996 - pack year histo Alcohol intake: former Year of sobriety/quit date alcohol: 1985 Current occupational status: retired 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 Skin: Warm, dry. Head: Normocephalic, atraumatic. Neck: Supple, trachea midline. Eye: Extraocular movements are intact. Ears, nose, mouth and throat: mucosa moist. Cardiovascular: Regular, Normal peripheral perfusion. Respiratory: Lungs are clear to auscultation, respirations are non-labored, breath sounds are equal, Symmetrical chest wall expansion. Gastrointestinal: Soft, Nontender, Non distended Musculoskeletal: Normal ROM, no deformity. Neurological: Alert and oriented, No focal neurological deficit observed. Psychiatric: Cooperative, appropriate mood & affect. Course 2 Vital Signs: Vital signs: Vital Signs Temperature 98.2 F 03/26/25 09:11 Pulse Rate 73 03/26/25 10:19 Respiratory Rate 24 H 03/26/25 10:06 Blood Pressure 143/90 03/26/25 09:11 Pulse Oximetry 96 03/26/25 10:06 Oxygen Delivery Me thod BiPAP 03/26/25 10:06 Oxygen Flow Rate 4 03/26/25 09:11 Fraction of Inspir ed Oxygen 50 03/26/25 10:06 MDM - SOB/Dyspnea Medical Decision Making Medical decision making Patient's reason for coming to the emergency room: Worsening shortness of breath/pneumonia Social determinants: Patient is retired. A family member is present I reviewed the patient's medical record. 85-year-old man with a history of hypertension, diabetes, recent hypoxemic respiratory failure requiring oxygen, chronic kidney disease, carotid artery stenosis and BPH, he was discharged from the hospital on 03 13, almost 2 weeks ago on oxygen and antibiotics. He had been treated for community-acquired pneumonia, hypoxemia and sent home. Over the weekend he has had increased requirements of oxygen. He had increased from 2 to 4 L and now he is hypoxemic on 4 L. I reviewed the patient's current home meds Patient had gone home on doxycycline Alternate historians: None Differential diagnosis for patient with shortness of breath includes but is not limited to and based on the above HPI, review of systems and physical exam: Pneumonia. Bronchitis. Asthma or COPD with acute exacerbation. Acute coronary syndrome / MD. Pulmonary embolism. Anxiety. Congestive heart failure. Viral infections including influenza and Covid-19. Atrial fibrillation. Anxiety. Pleural effusion. Pneumothorax. Orders placed to evaluate differential diagnosis based on the above differential, HPI and physical exam EKG: Time 9:14 AM. Rate 86. Normal sinus rhythm, nonspecific ST changes, no ectopy, normal NC & QRS intervals, This was reviewed and interpreted by myself the ER physician at 9:19 AM Repeat EKG: Time 1018. Rate 71. Normal sinus rhythm, nonspecific ST changes, no ectopy, normal NC & QRS intervals, This was reviewed and interpreted by myself the ER physician at 10:25 AM. No significant changes from EKG done previously today in the emergency room. Chest x-ray: Increase in the density of bilateral patchy opacities which is likely worsening pneumonia. Cardiomegaly. Atherosclerosis. This was reviewed and interpreted by myself the emergency room physician. I also reviewed the radiology report. Lab Review: Laboratory results were reviewed and interpreted by myself the emergency room physician. Leukocytosis with a white count of 17,000. No anemia. Creatinine is around his baseline at 1.9. Assessment of risk: Level of risk: High risk patient. Failed previous treatment of pneumonia with worsening hypoxemia Hospitalization considerations: Patient is being admitted. Reexamination: Patient is tolerating BiPAP. Oxygen saturations have improved with this. He is not in any distress currently. No altered mental status. No focal motor deficits. I discussed findings with his family and discussed admission. Consultation: I spoke with Dr. Patsy moreau who is on-call for the hospitalist service and agrees to admission. Assessment and plan: Pneumonia Hypoxemic respiratory failure Chronic kidney disease ?BiPAP, Solu-Medrol and a breathing treatment. No history of COPD but with worsening hypoxemia - patient borderline for sepsis. Vitals are good. His white count is up. Lactate was just minimally elevated. Broad-spectrum antibiotics being given secondary to failure of outpatient therapy. Limited fluids being given. 500 cc bolus in the emergency room. I would have concern that there could be a component of heart failure with this. His proBNP has become more elevated from the past. -Sepsis quality measures. -Lactic acid with a reflex was ordered. -Blood cultures were ordered. ?I reevaluated the patient's volume status after sepsis fluids were given. -I discussed the patient with the hospitalist on-call who is admitting the patient. - Discussed findings and plan with patient. Answered any questions. - All laboratory values were reviewed and interpreted personally by myself, the ER physician - All imaging was reviewed and interpreted personally by myself, the ER physician. - Evaluation and treatment of this problem were appropriate in the emergency setting Critical Care: -I spent a total of 39 minutes of critical care time managing the patient, independent of any other practitioner. -The time involved in the performance of separately reportable procedures was not counted towards critical care time. Lab Data 03/26/25 09:43 03/26/25 09:43 Labs/Radiology: Radiology Impressions Chest X-Ray 03/26/25 09:13 Impression: 1. Increase in density of bilateral patchy opacities which may represent worsening pneumonia. 2. Cardiomegaly and atherosclerosis. Laboratory Results WBC 17.27 10^3/uL (3.29-11.43) H 03/26/25 09:43 RBC 3.96 10^6/uL (3.85-5.65) 03/26/25 09:43 Hgb 11.70 g/dL (11.27-16.99) 03/26/25 09:43 Hct 36.6 % (37-53) L 03/26/25 09:43 MCV 92.4 fl (82-101) 03/26/25 09:43 MCH 29.5 pg (27-33) 03/26/25 09:43 MCHC 32.0 g/dL (30-55) 03/26/25 09:43 RDW 12.8 % (12.1-15.1) 03/26/25 09:43 Plt Count 379 10^3/cmm (157-399) 03/26/25 09:43 MPV 10.6 fL (7.4-10.4) H 03/26/25 09:43 Neut % (Auto) 85.7 % 03/26/25 09:43 Lymph % (Auto) 5.6 % 03/26/25 09:43 [place] % (Auto) 5.8 % 03/26/25 09:43 Eos % (Auto) 1.8 % 03/26/25 09:43 Baso % (Auto) 0.6 % 03/26/25 09:43 Neut # (Auto) 14.82 10^3/uL (1.8-7.7) H 03/26/25 09:43 Lymph # (Auto) 1.0 10^3/uL (0.8-4.8) 03/26/25 09:43 [place] # (Auto) 1.0 10^3/uL (0.2-0.9) H 03/26/25 09:43 Eos # (Auto) 0.3 10^3/uL (0.0-0.8) 03/26/25 09:43 Baso # (Auto) 0.1 10^3/uL (0.0-0.1) 03/26/25 09:43 Nucleated RBC % (auto) 0 % 03/26/25 09:43 Nucleated RBCs # 0.0 /100WBC 03/26/25 09:43 Specimen Type Arterial 03/26/25 09:39 Sample Site Radial, right 03/26/25 09:39 ABG pH 7.45 (7.35-7.45) 03/26/25 09:39 ABG pCO2 33.8 mmHg (35-45) L 03/26/25 09:39 ABG pO2 50.9 mmHg (80.0-100.0) L 03/26/25 09:39 ABG PO2/FiO2 Ratio 115 03/26/25 09:39 ABG HCO3 23.5 mmol/L (22-26) 03/26/25 09:39 ABG O2 Saturation 85.7 03/26/25 09:39 ABG Base Excess 0.0 mmol/L (-2.0-2.0) 03/26/25 09:39 Silvio Test Pos 03/26/25 09:39 A-a O2 Gradient 29.0 mmHg (5-10) H 03/26/25 09:39 Hematocrit 37.7 % (42-52) L 03/26/25 09:39 Hgb O2 Saturation 84.9 % (95-100) L 03/26/25 09:39 Carboxyhemoglobin 0.5 %THgb (0.4-20.1) 03/26/25 09:39 Methemoglobin 0.5 % (0.4-1.5) 03/26/25 09:39 Total Hemoglobin 12.3 g/dL (14-18) L 03/26/25 09:39 Sodium 140.0 mmol/L (131-143) 03/26/25 09:39 Potassium 3.3 mmol/L (3.5-5.0) L 03/26/25 09:39 Glucose 201.0 mg/dL (70-115) H 03/26/25 09:39 Ionized Calcium 1.2 mmol/L (1.1-1.4) 03/26/25 09:39 O2 Delivery Device Nc 03/26/25 09:39 O2 Liters/Min 6.0 % 03/26/25 09:39 FiO2 44.0 % 03/26/25 09:39 Eco Industrial Development Consultant ID glc 03/26/25 09:39 Sodium 140 mmol/L (136-145) 03/26/25 09:43 Potassium 3.8 mmol/L (3.5-5.1) 03/26/25 09:43 Chloride 104 mmol/L (98-107) 03/26/25 09:43 Carbon Dioxide 22 mmol/L (22-29) 03/26/25 09:43 Anion Gap 17.8 (5-19) 03/26/25 09:43 BUN 22 mg/dL (8-23) 03/26/25 09:43 Creatinine 1.9 mg/dL (0.7-1.2) H 03/26/25 09:43 GFR Calculation Not Reportable 03/26/25 09:43 Glucose 196 mg/dL (65-115) H 03/26/25 09:43 Calculated Osmolality 299 mOsm/kg (285-295) H 03/26/25 09:43 Lactic Acid 2.1 mmol/L (0.5-2.2) 03/26/25 09:43 Calcium 8.6 mg/dL (8.5-10.5) 03/26/25 09:43 Total Bilirubin 0.6 mg/dL (0.15-1.2) 03/26/25 09:43 AST 24 U/L (0-40) 03/26/25 09:43 ALT 19 U/L (0-41) 03/26/25 09:43 Alkaline Phosphatase 100 U/L (40-130) 03/26/25 09:43 Troponin T Baseline 41 ng/L (0-15) H 03/26/25 09:43 C-Reactive Protein 211.5 mg/L (0.0-4.9) H 03/26/25 09:43 NT-Pro-B Natriuret Pep 5601 pg/mL (0-450) H 03/26/25 09:43 Total Protein 6.1 g/dL (6.6-8.7) L 03/26/25 09:43 Albumin 3.0 g/dL (3.5-5.2) L 03/26/25 09:43 Globulin 3.1 g/dL (1.3-4.6) 03/26/25 09:43 Procalcitonin 0.17 ng/mL (0-0.5) 03/26/25 09:43 Influenza A (PCR) Negative (Negative) 03/26/25 09:42 Influenza Type B (PCR) Negative (Negative) 03/26/25 09:42 RSV (PCR) Negative (Negative) 03/26/25 09:42 SARS-CoV-2 (PCR) Negative (Negative) 03/26/25 09:42 All radiology interpretation(s) finalized by discharge Discharge Plan Discharge Condition: Stable Prescriptions: No Action metoprolol tartrate 50 mg tablet 25 mg PO BID aspirin [Enteric Coated Aspirin] 81 mg tablet,delayed release (DR/EC) 81 mg PO DAILY Qty: 90 3RF cyanocobalamin (vitamin B-12) [Vitamin B-12] 500 mcg tablet 500 mcg PO DAILY Qty: 30 6RF cholecalciferol (vitamin D3) 50 mcg (2,000 unit) capsule 50 mcg PO DAILY Qty: 30 6RF magnesium 200 mg Tablet 200 mg PO DAILY pantoprazole 40 mg Tablet,Delayed Release (Dr/Ec) 40 mg PO DAILY 30 Days Qty: 30 0RF budesonide 0.5 mg/2 mL Suspension For Nebulization 0.5 mg inhalation BID.RESPIRATORY 30 Days Qty: 120 0RF ipratropium-albuterol 0.5 mg-3 mg(2.5 mg base)/3 mL solution for nebulization 3 ml inhalation Q8H PRN (Reason: shortness of breath) Qty: 90 0RF amlodipine 5 mg tablet 5 mg PO BID hydrochlorothiazide 12.5 mg capsule 12.5 mg PO DAILY fluoxetine 20 mg capsule 20 mg PO DAILY finasteride 5 mg tablet 5 mg PO DAILY Referrals: David Garg MD [Primary Care Provider, Family Practice] Print Language: Bulgarian Coding Level of Care Code ED 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
--- OUTSIDE RECORDS SUMMARY | 2025-03-26 09:16 | XMS_ITS | Patient Health Record ---
Author Organization [facility] Address [address] [place] [address] Care Team Providers Care Founding Partner Name Role Phone Maximus Hensley Unavailable [phone] FabyRoro valencia Unavailable [phone] Allergies Allergen (clinical drug ingredient) Drug/Non Drug [...] W/U Status Risk Notes Problem Hearing loss (22956131) Bilateral hearing loss, unspecified hearing loss type (H91.93) Active confirmed Problem Hypertension (32468762) Hypertension (I10) Active confirmed Problem Subclavian steal syndrome (57026135) Subclavian steal syndrome (G45.8) Active confirmed Problem Right carotid artery stenosis (321144449654318 ) Carotid stenosis, right (I65.21) Active confirmed Problem Stenosis of right subclavian artery (010938048509919 00) Stenosis of right subclavian artery (I77.1) Active confirmed Encounters Encounter Location Date Provider Diagnosis [facility] [address] [place] [id number] 09/28/2024 Roro Hobbs Plan Of Treatment Pending Test Test Name Order Date Blood Urea Nitrogen (BUN) 63895 04/22/19 24 Blood Urea Nitrogen (BUN) 88579 05/05/19 24 Creatinine (B) 82124 05/05/2023 Creatinine (B) 18726 04/22/2023 CTA Neck w/ + w/o Contrast-28264 024 CTA Neck w/ + w/o Contrast-32416 024 Echo Complete EC-[id number] 05/05/2023 Echo Complete [id number] 05/20/2023 NM Lexiscan Cardiolite-56829 05/05/2023 NM Lexiscan Cardiolite-18800 05/20/2023 US Carotid Doppler Bilateral-17428 04/12 US Carotid Doppler Bilateral-52987 09/12 Electrocardiogram 12 Lead Tracing (EKG)- 56941 06/02/2023 Stress, Lexiscan Cardiolite-92678 2023 PRBC-LR--P9016 06/17/2023 Glucometer WBG--55763 06/17/2023 Crossmatch--[id number] 06/17/2023 Schedule Confirmation 05/20/2023 Schedule Confirmation 05/20/2023 [...] Insured Coverage Start Date Coverage End Date [place] Medicare [address] [place] [phone] [id number] Umer Arango Self - patient is the insured [facility] Insurance [address] [address] [place] [address] [id number] Umer Arango Self - patient is the insured Medical (General) History Medical History History ICD Code type II diabetes hypertension benign prostatic hyperplasia (BPH) subclavian artery stenosis Surgical History Surgery Date(Month/Year) Right Carotid Endarterectomy with patch 06.18.23 ear drum surgery x 2 cataract removal bilateral appendectomy cholecystectomy
--- OUTSIDE RECORDS SUMMARY | 2025-03-26 09:17 | XMS_ITS | Encounter Summary ---
Author Organization [facility] Address 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
--- OUTSIDE RECORDS SUMMARY | 2025-03-26 09:17 | XMS_ITS | Clinical Summary ---
Author Organization [facility] Address [address] [place] [address] Care Team Providers Care Inspector Watch Train Name Role Phone David Garg MD Primary Care Provider [phone] Allergies Active Allergy Reactions Criticality Noted Date [...] Comments Blood Pressure 138/68 03/16/2023 9:23 AM ACCOUNTS RECEIVABLE ASSOCIATE Pulse 66 03/16/2023 9:23 AM ACCOUNTS RECEIVABLE ASSOCIATE Temperature 37.1 C (98.8 F) 07/08/2020 10:32 AM CDT Respiratory Rate - - Oxygen Saturation - - Inhaled Oxygen Concentration - - Weight 89.4 kg (197 lb) 03/16/2023 9:23 AM ACCOUNTS RECEIVABLE ASSOCIATE Height 175.3 cm (5' 9 ) 03/16/2023 9:23 AM ACCOUNTS RECEIVABLE ASSOCIATE Body Mass Index 29.09 03/16/2023 9:23 AM ACCOUNTS RECEIVABLE ASSOCIATE Plan of Treatment Health Maintenance Due Date [...] (EXTERNAL RESULT ENTRY) Routine 02/17/2023 11:59 AM ACCOUNTS RECEIVABLE ASSOCIATE from Last 3 Months or Most Recently Relevant to Health Maintenance Results * Hemoglobin A1C (02/17/2023 11:59 AM ACCOUNTS RECEIVABLE ASSOCIATE) Hemoglobin A1C 6.4 Blood specimen (specimen) Venous blood / Unknown 02/17/2023 11:59 AM ACCOUNTS RECEIVABLE ASSOCIATE us Aps External Provider LAB BLOOD ORDERABLES Final Result from Last 3 Months or Most Recently Relevant to Health Maintenance Insurance Medicare [facility] [place] [id number] Care Teams Inspector Watch Train Relationship Specialty Start Date End Date David Garg MD PCP - General Family Medicine 02/01/20
--- OUTSIDE RECORDS SUMMARY | 2025-03-26 09:17 | XMS_ITS | Clinical Summary ---
Author Organization [facility] Address [address] [place] [address] Phone Care Team Providers Care Production Team Leader Name Role Phone Unavailable Primary Care Provider Unavailabl e Encounters Date Type Department Care Team Description 03/20/2025 External Device Data [facility] ABSTRACTION Provider, Abstract 03/20/2025 External Device Data [facility] ABSTRACTION Provider, Abstract 03/20/2025 External Device Data ST[facility] ABSTRACTION Provider, Abstract 03/14/2025 Telephone [facility] [address] [facility] [address] [place] [phone] Alan Shin MD Referral; MRCP 03/14/2025 [facility] [address] [facility] [address] [place] [phone] Elijah Maddox MD Pancreatic abnormality (Primary Dx); Abnormal magnetic resonance cholangiopancreatography (MRCP) from Last 3 Months Social History Tobacco Use Types Packs/Day Years Used Date Smoking Tobacco: Never Assessed Sex and Gender Information Value Date Recorded Sex Assigned at Not on file Legal Sex Male 7:39 AM SHANKER OUT Gender Identity Not on file Sexual Orientation Not on file Plan of Treatment Health Maintenance Due Date Last Done Comments DTAP/TDAP/TD VACCINES (1 - Tdap) 1960 PNEUMOCOCCAL VACCINE 50+ YEARS (1 of 1 - PCV) 03/12/19 91 ZOSTER VACCINE (1 of 2) 1991 RSV VACCINE (60+ or ) (1 - 1-dose 75+ series) 2016 INFLUENZA VACCINE (#1) 2024
--- OUTSIDE RECORDS SUMMARY | 2025-03-26 09:17 | XMS_ITS | Encounter Summary ---
Author Organization [facility] Address 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
--- OUTSIDE RECORDS SUMMARY | 2025-03-26 09:17 | XMS_ITS | Encounter Summary ---
Author Organization [facility] Address [address] [facility] [address] [place] [address] Phone Care Team Providers Care Drop Wire Aliner Name Role Phone David Garg MD Primary Care Provider [phone] Encounter Details Date Type Department Care Team (Late st Contact Info) Description 02/01/2020 Orders Only [facility] [employer] [employer] [address] [place] [address] Chronic kidney disease, stage 3 [...] specified documented in this encounter Care Teams Drop Wire Aliner Relationship Specialty Start Date End Date David Garg MD PCP - General Family Medicine 02/01/20 documented as of this encounter
--- OUTSIDE RECORDS SUMMARY | 2025-03-26 09:17 | XMS_ITS | Encounter Summary ---
Author Organization [email or web address] Address 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
[2025-03-26 09:51] LABS: ABG PCO2 33.8 mmHg (35-45); ABG PH Result 7.45 (7.35-7.45); Alveolar-Arterial Oxygen Gradi 29.0 mmHg (5-10); Arterial Blood Gas Hematocrit 37.7 % (42-52); Blood Gas Allen Test Pos; Blood Gas LPM 6.0 %; Blood Gas Operator Identificat glc; Blood Gas Sample Site Radial, right; Blood Gas Sample Type Arterial; Carboxyhemoglobin 0.5 %THgb (0.4-20.1); Glucose Level-ABG 201.0 mg/dL (70-115); HCO3 ABG 23.5 mmol/L (22-26); Ionized Calcium Level - ABG 1.2 mmol/L (1.1-1.4); Methemoglobin 0.5 % (0.4-1.5); Oxygen Saturation ABG 85.7; PO2 ABG 50.9 mmHg (80.0-100.0); PO2 FiO2 Ratio Arterial Blood 115; Potassium Level - ABG 3.3 mmol/L (3.5-5.0); Sodium Level - ABG 140.0 mmol/L (131-143)
[2025-03-26 10:00] LABS: Hematocrit 36.6 % (37-53); Hemoglobin 11.70 g/dL (11.27-16.99); Mean Corpuscular HGB Conc 32.0 g/dL (30-55); Mean Corpuscular Hemoglobin 29.5 pg (27-33); Mean Corpuscular Volume 92.4 fl (82-101); Nucleated Red Blood Cells % 0 %; Platelet Count 379 10^3/cmm (157-399); Red Blood Count 3.96 10^6/uL (3.85-5.65); White Blood Count 17.27 10^3/uL (3.29-11.43)
[2025-03-26] MEDS: methylPREDNISolone sod succ 125 mg/2 mL INJ IVP (10:06)
[2025-03-26] MEDS: linezolid premix 600 MG/300 ML PREMIX 300 MG IV (10:07)
--- NOTE | 2025-03-26 10:14 | ECG_ITS ---
[facility] Test Date: 2025-03-26 Pat Name: Umer Arango Department: Room: Gender: Male Copy Camera Operator: : 1940 Requested By: Zulema Phelps Order Number: [id number] Vane MD: GABI GONZALEZ Measurements Intervals [place] Rate: 71 P: 6 SC: 143 QRS: 23 QRSD: 85 T: 49 QT: 390 QTc: 424 Interpretive Statements SINUS RHYTHM SEPTAL MYOCARDIAL INFARCTION , OF INDETERMINATE AGE [40+ ms Q WAVE IN V1/V2] Compared to ECG 03/26/2025 09:14:13 Myocardial infarct finding now present T-wave abnormality no longer present Electronically Signed On 03-28-2025 20:42:37 STATISTICAL TYPIST by GABI GONZALEZ [email or web address]
[2025-03-26 10:21] LABS: Lactic Sepsis W/Reflex 2.1 mmol/L (0.5-2.2)
[2025-03-26 10:23] LABS: Troponin(5th) Baseline 41 ng/L (0-15)
[2025-03-26 10:33] LABS: NT Pro B Type Natriuretic Pept 5601 pg/mL (0-450); Procalcitonin 0.17 ng/mL (0-0.5)
[2025-03-26 10:38] LABS: Respiratory Syncytial Virus Ce NEGATIVE (Negative); SARS-CoV-2 PCR NEGATIVE (Negative)
[2025-03-26 10:44] LABS: Alanine Aminotransferase 19 U/L (0-41); Albumin Level 3.0 g/dL (3.5-5.2); Alkaline Phosphatase 100 U/L (40-130); Anion Gap 17.8 (5-19); Aspartate Amino Transferase 24 U/L (0-40); Blood Urea Nitrogen 22 mg/dL (8-23); Calcium 8.6 mg/dL (8.5-10.5); Carbon Dioxide 22 mmol/L (22-29); Chloride 104 mmol/L (98-107); Globulin 3.1 g/dL (1.3-4.6); Glucose 196 mg/dL (65-115); Osmolality Calculated 299 mOsm/kg (285-295); Potassium 3.8 mmol/L (3.5-5.1); Sodium 140 mmol/L (136-145); Total Protein 6.1 g/dL (6.6-8.7)
--- NOTE | 2025-03-26 11:31 | P.HP_ITS ---
<Statement entered by Iron Rodriguez MD - 03/26/25 21:28> I reviewed the [facility] note, continue conservative management for community-acquired pneumonia Providers/Chief Complaint 2 Admitting Physician: Dr. Rordiguez Primary Care Provider: David Garg MD Chief Complaint: SOB, weakness History of Present Illness Umer Arango is a 85 year old male w/ pmhx of diabetes, hypertension, CKD stage III, coronary arterial artery stenosis, BPH, and GERD presents to the ED today with c/o worsening shortness of breath requiring increase in oxygen requirements. Patient states that his shortness of breath has been ongoing for him since last hospitalization- 03/11/24. Patient reports associated signs and symptoms of productive cough(thick green sputum), chills, no appetite, easily fatigued, and generalized weakness. Patient denies fevers, headache, chest pain, palpitations, changes in urinary and bowel habits, recent medication changes. He reports upon discharge during last hospital stay he was sent home with oxygen and breathing treatments but was not taught how to use them. He states he checks his oxygen pulse oximetry at home this morning and it read 74% on room air. Patient currently on heated high flow during my evaluation with no family noted at bedside. Patient to be admitted to hospitalist services for further medical management and care. While in ED a CBC, CMP, ABG, troponin series, BNP, lactic acid, procalcitonin, CRP obtained, reviewed, and results as indicated: WBC 17.27, Neut 14.82, HCT 36.6, Hgb 11.7, MPV 10.6. Na 140, K 3.8, Osmo 299, glucose 196. AB.45, pCO2 33.8, pO2 50.9, HCO3 23.5. Crushing Foreman 1.9, BUN 22. Baseline troponin 41, 2-hour troponin 38.35, delta troponin -2.65, BNP 5601. Lactic acid 2.1, procalcitonin 0.1 CRP 211.57. Flu/COVID/RSV negative. While in ED the patient received following medications: 500 mL NS bolus, meropenem 500 mg IVP, Zyvox 600mg IV, Solu-Medrol 125 mg IVP, DuoNeb. Review of Systems 2 General: Reports: 10 or more systems reviewed and unremarkable except in HPI and below Medications/Allergies Home Medications ?Medication ?Instructions ?Recorded ?Confirmed ?Last Taken ?Type aspirin 81 mg tablet,delayed 81 mg PO DAILY #90 tabs 0 09/22/23 03/26/25 03/26/25 Rx release (Enteric Coated Aspirin) metoprolol tartrate 50 mg tablet 25 mg PO BID 12/22/24 03/26/25 03/26/25 History cholecalciferol (vitamin D3) 50 50 mcg PO DAILY #30 ca ps 12/28/24 03/26/25 03/26/25 Rx mcg (2,000 unit) capsule cyanocobalamin (vitamin B-12) 500 500 mcg PO DAILY #30 tabs 12/28/24 03/26/25 03/26/25 Rx mcg tablet (Vitamin B-12) magnesium 200 mg tablet 200 mg PO DAILY 03/11/2503/26/25 History budesonide 0.5 mg/2 mL suspension 0.5 mg (2 mL) inhala tion 03/13/25 03/26/25 03/26/25 Rx for nebulization BID.RESPIRATORY 30 days #120 mL ipratropium 0.5 mg-albuterol 3 mg 3 ml inhalation Q8H PRN shortness 03/13/25 03/26/25 Unknown Rx (2.5 mg base)/3 mL nebulization of breath #90 mL soln pantoprazole 40 mg tablet,delayed 40 mg PO DAILY 30 da ys #30 tabs 03/13/25 03/26/25 03/26/25 Rx release amlodipine 5 mg tablet 5 mg PO BID 03/26/25 5 03/26/25 History finasteride 5 mg tablet 5 mg PO DAILY 03/26/2503/2603/26/25 History fluoxetine 20 mg capsule 20 mg PO DAILY 03/26/2503/0603/26/25 History hydrochlorothiazide 12.5 mg capsule 12.5 mg PO DAILY 1 05/27/24 03/26/25 Unknown History Allergies Allergy/AdvReac Type Severity Reaction Status Date / Time lisinopril AdvReac Mild Unknown Verified 03/11/25 08:34 PFSH Acute 2 PFSH: Medical History (Updated 03/26/25 @ 16:06 by Sayra Recinos NP) Pancreatic cyst Benign Liver cyst Benign Hypertension Diabetes Surgical History Subclavian artery stenosis Subclavian artery bypass - 06/17/23 - Dr Jeff History of carotid endarterectomy 06/17/23 - Dr Jeff - [facility] History of bilateral tympanoplasty History of appendectomy History of cholecystectomy Family History Brother CAD (coronary artery disease) of [place] Mother Atrial fibrillation Social History Smoking and tobacco/nicotine status: never used tobacco/nicotine Quit status (tobacco/nicotine): has quit using Year quit tobacco: 1996 - pack year histo Alcohol intake: former Year of sobriety/quit date alcohol: 1985 Current occupational status: retired 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 Vitals/I&O/Wt Last Vital Signs Temp 98.2 F 03/26/25 09:11 Pulse 73 03/26/25 10:19 Resp 24 H 03/26/25 10:06 BP 143/90 03/26/25 09:11 Pulse Ox 96 03/26/25 10:06 O2 Del Method BiPAP 03/26/25 10:06 O2 Flow Rate 4 03/26/25 09:11 FiO2 50 03/26/25 10:06 Weight last 48 hrs Weight 79.379 kg Physical Exam 2 Narrative: General: A&Ox4, denies pain, currently on F HEENT: Normo-cephalic, atraumatic, grossly unremarkable exam Cardio: NSR, normal S1-S2 w/o any murmurs, rubs, or gallops and JVD normal Respiratory: Coarse to bilateral upper and lower lobes on auscultation, on HHF GI: Abd soft, non-tender, non-distended, normo-active bowel sounds present Neuro: Moves all extremities, no sensory deficits, Normal speech Behavior: Appropriate and cooperative Extremities: Adequate palpable pulses. No clubbing, cyanosis or edema, Full ROM Data 03/26/25 09:43 03/26/25 09:43 Other Labs: 03/26: CXR: Reviewed and results as follows: Increase in density of bilateral patchy opacities which may represent worsening pneumonia. Cardiomegaly and atherosclerosis. Micro: Microbiology 03/26/25 09:50 Blood Culture - Preliminary Blood SPECIMEN COLLECTED 03/26/25 09:43 Blood Culture - Preliminary Blood SPECIMEN COLLECTED A&P Assessment and plan 1. Acute hypoxic respiratory failure: - See plan below 2. Weakness generalized: - See plan below 3. Healthcare associated bacterial pneumonia: -03/26: CXR: Increase in density of bilateral patchy opacities which may represent worsening pneumonia. Cardiomegaly and atherosclerosis. - WBC 17.27, Neut 14.82, - Lactic acid 2.1, procalcitonin 0.1 CRP 211.57 - PSI/PORT score: 94 points - RVP, bacterial antigens, legionella antigen ordered. - Sputum culture ordered - MRSA ordered, pending. - Blood cultures ordered, pending - Flutter valve - Dounebs as needed, Pulmicort BID - Solu-Medrol 30 mg IV every 8 hours - Continue IV abx cefepime 1000 mg IVP, vancomycin IV - Mucinex 1,200 mg - Dly CBC,CMP, mag. Procalcitonin 0.25 4. CKD (chronic kidney disease): - Crushing Foreman 1.9, BUN 22. Baseline Crushing Foreman 1.5 - Strict I&O's - Avoid nephrotoxins 5. Hypertension: - Continue home medications amlodipine and metoprolol - Monitor vital signs as per protocol 6. Diabetes: - Pending A1C and lipid panel - No longer on home medications - Low-dose sliding scale insulin, POC 7. BPH (benign prostatic hyperplasia): - Resume home medications Plan: VTE PPx: SCDs, Heparin GI PPx: PPI CODE STATUS: Full code PDMP PDMP Reviewed: Not Reviewed Attestations 2 Medical Necessity Statement*: Admitted under inpatient status. Given complexity of patient's presentation, PNA requiring increased oxygen, co-morbid conditions, and required intensity of treatment, a hospitalization exceeding two midnights is anticipated. and High Time for a total of 78 minutes, includes reviewing past or interval history, examining/interviewing patient, placing orders, counseling patient/family/other support, updating patient/family/other support, discussing plan of care with staff, communicating with other healthcare providers, documenting encounter and coordinating care Diagnoses Acute hypoxic respiratory failure J96.01 Weakness generalized R53.1 Healthcare associated bacterial pneumonia J15.9 CKD (chronic kidney disease) N18.9 Hypertension I10 Diabetes E11.9 BPH (benign prostatic hyperplasia) N40.0
[2025-03-26 11:42] LABS: Reflex Lactate Order REFLEX LACTIC ORDERD
[2025-03-26 13:28] LABS: Lactic Acid level (Lactate) 1.3 mmol/L (0.5-2.2)
--- NOTE | 2025-03-26 15:14 | ECG_ITS ---
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
--- NOTE | 2025-03-26 15:24 | PHA.VACGOAL ---
Vancomycin Goal - Goal Vancomycin Goal:: 15-20 mg/L Vancomycin Indication:: Pneumonia - Therapy Current therapy:: Other Antibiotic (cefpime) Day of therpy:: Day []of [] . Actual body weight (kg): 175 lb - Data Labs: WBC 17.27 10^3/uL (3.29-11.43) H 03/26/25 09:43 RBC 3.96 10^6/uL (3.85-5.65) 03/26/25 09:43 Hgb 11.70 g/dL (11.27-16.99) 03/26/25 09:43 Hct 36.6 % (37-53) L 03/26/25 09:43 MCV 92.4 fl (82-101) 03/26/25 09:43 MCH 29.5 pg (27-33) 03/26/25 09:43 MCHC 32.0 g/dL (30-55) 03/26/25 09:43 RDW 12.8 % (12.1-15.1) 03/26/25 09:43 Sodium 140 mmol/L (136-145) 03/26/25 09:43 Potassium 3.8 mmol/L (3.5-5.1) 03/26/25 09:43 Chloride 104 mmol/L (98-107) 03/26/25 09:43 Carbon Dioxide 22 mmol/L (22-29) 03/26/25 09:43 Anion Gap 17.8 (5-19) 03/26/25 09:43 BUN 22 mg/dL (8-23) 03/26/25 09:43 Creatinine 1.9 mg/dL (0.7-1.2) H 03/26/25 09:43 GFR Calculation Not Reportable 03/26/25 09:43 Last dialysis session:: N/A Treatment plan:: new consult Regimen:: PULSE DOSING DUE TO CRCL <30 ML/MIN. TREATING PNEUMONIA. STARTING WITH 1000 MG LOADING DOSE. WILL OBTAIN TROUGH IN 24 HOURS TO DETERMINE FURTHER DOSING.
[2025-03-26] MEDS: heparin 5,000 unit/mL INJ 1 mL 5000 UNIT SUBCUT (16:03)
[2025-03-26 16:11] LABS: Troponin 5 6HR 37.30 ng/L (0-15)
[2025-03-26 16:12] LABS: Troponin 5 6HR Delta -3.70 ng/L (0-12)
[2025-03-26 16:51] LABS: Cholesterol 88 mg/dL (0-200); HDL Cholesterol 40 mg/dL (60-100); Triglycerides 45 mg/dL (0-150)
[2025-03-26 18:16] LABS: Coronavirus 229E,HKU1,NL63,OC4 Not Detected (NOT DETECT); Parainfluenza Virus Type 1 Not Detected (NOT DETECT); Parainfluenza Virus Type 2 Not Detected (NOT DETECT); Parainfluenza Virus Type 3 Not Detected (NOT DETECT); Parainfluenza Virus Type 4 Not Detected (NOT DETECT); SARS-COV-2 Not Detected (NOT DETECT)
[2025-03-26] MEDS: methylPREDNISolone sod succ 40 mg/mL INJ 30 MG IVP (18:18)
[2025-03-26 18:28] LABS: Estmated Average Glucose 160; Hemoglobin A1C 7.2 % (4.0-6.0)
--- NOTE | 2025-03-26 19:07 | PC.NURSE ---
Received patient from ER staff at 1815. Patient is alert and oriented to person, place, time, and situation. Tranfserred himself from ER gurney to bed. HR: 72 BP: 128/63 Temp:98.5 SPO2: 94% on HHF 50L/70% No urine output charted today. Nurse bladder scanned, Shows only 110mL retained. Patient states he has not had anything to drink today. Will continue to monitor.
[2025-03-26] MEDS: cefepime 1,000 mg SDV 1000 MG IVP (21:01)
[2025-03-26 22:17] LABS: MRSA PCR OZH (swab) NOT DETECTED (Negative)
[2025-03-27] VITALS (168 sets, daily range): BP systolic 95–126; BP diastolic 41–69; PULSE 56–87; RESP 17–39; O2SAT 87–99
[2025-03-27] MEDS: methylPREDNISolone sod succ 40 mg/mL INJ 30 MG IVP ×3 (04:21→22:25)
[2025-03-27] MEDS: heparin 5,000 unit/mL INJ 1 mL 5000 UNIT SUBCUT ×2 (04:21→15:52)
[2025-03-27 05:31] LABS: Hematocrit 35.9 % (37-53); Hemoglobin 11.10 g/dL (11.27-16.99); Mean Corpuscular HGB Conc 30.9 g/dL (30-55); Mean Corpuscular Hemoglobin 29.4 pg (27-33); Mean Corpuscular Volume 95.0 fl (82-101); Nucleated Red Blood Cells % 0 %; Platelet Count 261 10^3/cmm (157-399); Red Blood Count 3.78 10^6/uL (3.85-5.65); White Blood Count 21.07 10^3/uL (3.29-11.43)
[2025-03-27 05:51] LABS: Alanine Aminotransferase 19 U/L (0-41); Albumin Level 2.6 g/dL (3.5-5.2); Alkaline Phosphatase 91 U/L (40-130); Anion Gap 16.8 (5-19); Aspartate Amino Transferase 22 U/L (0-40); Blood Urea Nitrogen 31 mg/dL (8-23); Calcium 8.9 mg/dL (8.5-10.5); Carbon Dioxide 20 mmol/L (22-29); Chloride 106 mmol/L (98-107); Globulin 3.7 g/dL (1.3-4.6); Glucose 162 mg/dL (65-115); Magnesium 1.7 mg/dL (1.7-2.3); Osmolality Calculated 298 mOsm/kg (285-295); Potassium 3.8 mmol/L (3.5-5.1); Sodium 139 mmol/L (136-145); Total Protein 6.3 g/dL (6.6-8.7)
[2025-03-27] MEDS: cefepime 1,000 mg SDV 1000 MG IVP ×2 (08:10→22:25)
--- NOTE | 2025-03-27 08:24 | P.PN_ITS ---
Subjective 2 Subjective: Met patient for the first time this morning. Sitting upright, on high flow nasal cannula. Still requiring 50 L O2. States he feels better Hospitalized for acute COPD, hospital-acquired pneumonia. On vancomycin, Cefepime Vitals/I&O/Wt Last Vital Signs Temp 98.2 F 03/28/25 03:00 Pulse 65 03/28/25 07:56 Resp 20 H 03/28/25 07:56 BP 119/56 03/28/25 06:00 Pulse Ox 94 03/28/25 07:56 O2 Del Method Heated High Flow 03/28/25 07:56 O2 Flow Rate 50 03/28/25 07:56 FiO2 60 03/28/25 07:56 Weight last 48 hrs Weight 81.193 kg Weight 79.379 kg Physical Exam 2 Narrative: General: A&Ox4, denies pain, currently on HHF HEENT: Normo-cephalic, atraumatic, grossly unremarkable exam Cardio: NSR, normal S1-S2 w/o any murmurs, rubs, or gallops and JVD normal Respiratory: Coarse to bilateral upper and lower lobes on auscultation, on HHF GI: Abd soft, non-tender, non-distended, normo-active bowel sounds present Neuro: Moves all extremities, no sensory deficits, Normal speech Behavior: Appropriate and cooperative Extremities: Adequate palpable pulses. No clubbing, cyanosis or edema, Full ROM Data 03/28/25 03:15 03/28/25 03:15 Micro: Microbiology 03/27/25 17:24 Legionella Urinary Antigen - Final Urine,Voided Bacterial Antigens - Final 03/26/25 09:50 Blood Culture - Preliminary Blood NEGATIVE TO DATE 03/26/25 09:43 Blood Culture - Preliminary Blood NEGATIVE TO DATE A&P Assessment and plan 1. HAP (hospital-acquired pneumonia): 85-year-old male with history of COPD, severe bilateral insipidus scarring seen on last CT on prior hospitalization. Recently hospitalized less than 1 month ago for acute bilateral pneumonia. COPD exacerbation with acute hypoxemic respiratory failure, requiring high flow nasal cannula Hospital-acquired pneumonia in a patient without known carbapenem resistance Severe sepsis Primary hypertension BPH Plan: Continue supportive measures with IV steroids Continue wean off high flow nasal cannula Ambulate, respiratory therapy, PT/OT Blood pressure well-controlled, continue antihypertensives with amlodipine 5 mg twice daily and hydrochlorothiazide 12.5 mg, metoprolol tartrate 25 mg twice daily DVT prophylaxis: Heparin subcu 12h GI prophylaxis: Protonix Disposition: Patient is critically ill requiring supplemental oxygen, could progress to mechanical ventilation due to his risk factors. Maintain ICU level of care, continue hemodynamic monitoring PDMP PDMP Reviewed: Not Reviewed Attestations 2 Medical Necessity Statement*: See note above. Patient requires multidisciplinary care, ICU monitoring, remains hypoxemic, stable, slightly improving. Anticipate greater than 2 midnight stay. Coding Level of Care Code Critical Care >/= 30 minutes Critical care time (in minutes): 43 The high probability of a clinically significant, sudden or life threatening deterioration, as referenced in this documentation, required my full and direct attention, intervention and personal management. The critical care time shown is in addition to time spent performing any reported separately billable procedures and includes the following: [x] Data and vital sign review and interpretation [x ] Patient assessment, examination and intervention [x] Medication orders and management [x] Patient/Family updates as able [x] Care Coordination and Documentation. Other Coding Information See note above Diagnoses HAP (hospital-acquired pneumonia) J18.9; Y95
[2025-03-28] VITALS (55 sets, daily range): BP systolic 87–135; BP diastolic 36–66; PULSE 57–77; RESP 17–32; TEMP 36.2–36.9; O2SAT 83–97
[2025-03-28] MEDS: heparin 5,000 unit/mL INJ 1 mL 5000 UNIT SUBCUT ×2 (04:16→15:36)
[2025-03-28] MEDS: methylPREDNISolone sod succ 40 mg/mL INJ 30 MG IVP (04:17)
[2025-03-28 04:43] LABS: Hematocrit 35.3 % (37-53); Hemoglobin 11.20 g/dL (11.27-16.99); Mean Corpuscular HGB Conc 31.7 g/dL (30-55); Mean Corpuscular Hemoglobin 29.4 pg (27-33); Mean Corpuscular Volume 92.7 fl (82-101); Nucleated Red Blood Cells % 0 %; Platelet Count 382 10^3/cmm (157-399); Red Blood Count 3.81 10^6/uL (3.85-5.65); White Blood Count 27.06 10^3/uL (3.29-11.43)
[2025-03-28 05:09] LABS: Alanine Aminotransferase 40 U/L (0-41); Albumin Level 2.8 g/dL (3.5-5.2); Alkaline Phosphatase 87 U/L (40-130); Anion Gap 15.8 (5-19); Aspartate Amino Transferase 48 U/L (0-40); Blood Urea Nitrogen 39 mg/dL (8-23); Calcium 8.9 mg/dL (8.5-10.5); Carbon Dioxide 23 mmol/L (22-29); Chloride 105 mmol/L (98-107); Globulin 3.2 g/dL (1.3-4.6); Glucose 141 mg/dL (65-115); Magnesium 1.7 mg/dL (1.7-2.3); Osmolality Calculated 302 mOsm/kg (285-295); Potassium 3.8 mmol/L (3.5-5.1); Sodium 140 mmol/L (136-145); Total Protein 6.0 g/dL (6.6-8.7)
[2025-03-28] MEDS: meropenem 1,000 mg SDV 1000 MG IVP ×2 (08:55→20:39)
--- NOTE | 2025-03-28 09:54 | XR_ITS ---
WS: [id number] Portable AP upright chest, 03/28/2025 Clinical Data: progress Comparison: Portable chest, 03/26/2025 Findings: The bilateral patchy opacities encompassing both lungs remains the same. No nodules or masses are seen. The heart is slightly enlarged. No pneumothorax is present. The aortic arch shows tortuosity. Monitor leads on the chest wall. XR/XR chest 1V portable [id number] Impression: 1. No change in bilateral pulmonary opacities and cardiomegaly. 2. Atherosclerosis.
--- NOTE | 2025-03-28 09:54 | PC.NURSE ---
Received verbal orders for chest xray from Dr. Pablo
[2025-03-28] MEDS: sodium chloride 3.5% neb 4 mL Neb INHALATION ×2 (10:16→20:22)
--- NOTE | 2025-03-28 10:59 | PC.SOCIAL ---
IMM Update pg 2 of IMM Updated and reviewed w/ patient. Copy provided and copy dated, initialed and placed in chart.
--- NOTE | 2025-03-28 14:39 | P.PN_ITS ---
Subjective 2 Subjective: Patient is euvolemic, probably dry. Producing dry cough, cannot expectorate any sputum Discussed with RT at bedside today, explained measures to break up sputum and allow expiration Family at bedside, discussed treatment plan. Since patient maintains on high flow nasal cannula, for oxygenation, not yet stable to be downgraded from ICU ? Patient does continue to improve Vitals/I&O/Wt Last Vital Signs Temp 98.2 F 03/28/25 03:00 Pulse 69 03/28/25 13:11 Resp 20 H 03/28/25 13:09 BP 107/47 03/28/25 12:00 Pulse Ox 95 03/28/25 13:09 O2 Del Method Heated High Flow 03/28/25 13:09 O2 Flow Rate 45 03/28/25 13:09 FiO2 45 03/28/25 13:09 03/27/25 03/28/25 03/28/25 22:59 06:59 14:59 Intake Total 250 / 250 Balance 250 / 250 Weight last 48 hrs Weight 81.193 kg Physical Exam 2 Narrative: General: A&Ox4, denies pain, currently on F HEENT: Normo-cephalic, atraumatic, grossly unremarkable exam Cardio: NSR, normal S1-S2 w/o any murmurs, rubs, or gallops and JVD normal Respiratory: Coarse to bilateral upper and lower lobes on auscultation, on F GI: Abd soft, non-tender, non-distended, normo-active bowel sounds present Neuro: Moves all extremities, no sensory deficits, Normal speech Behavior: Appropriate and cooperative Extremities: Adequate palpable pulses. No clubbing, cyanosis or edema, Full ROM Data 03/28/25 03:15 03/28/25 03:15 Micro: Microbiology 03/28/25 10:52 Gram Stain - Final Sputum - Expectorated Sputum 03/27/25 17:24 Legionella Urinary Antigen - Final Urine,Voided Bacterial Antigens - Final 03/26/25 09:50 Blood Culture - Preliminary Blood NEGATIVE TO DATE 03/26/25 09:43 Blood Culture - Preliminary Blood NEGATIVE TO DATE A&P Assessment and plan 1. HAP (hospital-acquired pneumonia): 85-year-old male with history of COPD, severe bilateral insipidus scarring seen on last CT on prior hospitalization. Recently hospitalized less than 1 month ago for acute bilateral pneumonia. COPD exacerbation with acute hypoxemic respiratory failure, requiring high flow nasal cannula Hospital-acquired pneumonia in a patient without known carbapenem resistance Severe sepsis Primary hypertension BPH Plan: Continue supportive measures with IV steroids Continue wean off high flow nasal cannula as tolerated Ambulate, respiratory therapy, PT/OT Blood pressure well-controlled, continue antihypertensives with amlodipine 5 mg twice daily and hydrochlorothiazide 12.5 mg, metoprolol tartrate 25 mg twice daily Repeat chest x-ray Initiate chest PT, 3% nebulized NaCl, frequent DuoNebs, ambulation, sputum induction for Gram stain and culture ? Escalate antibiotics for broader spectrum for hospital-acquired pneumonia With meropenem 1 g IV every 12, vancomycin pharmacy to dose DVT prophylaxis: Heparin subcu 12h GI prophylaxis: Protonix Disposition: Patient is critically ill requiring supplemental oxygen, could progress to mechanical ventilation due to his risk factors. Maintain ICU level of care, continue hemodynamic monitoring PDMP PDMP Reviewed: Not Reviewed Attestations 2 Medical Necessity Statement*: See note above. Patient requires multidisciplinary care, ICU monitoring, remains hypoxemic, stable, slightly improving. Anticipate greater than 2 midnight stay. Coding Level of Care Code Critical Care >/= 30 minutes Critical care time (in minutes): 48 The high probability of a clinically significant, sudden or life threatening deterioration, as referenced in this documentation, required my full and direct attention, intervention and personal management. The critical care time shown is in addition to time spent performing any reported separately billable procedures and includes the following: [x] Data and vital sign review and interpretation [x ] Patient assessment, examination and intervention [x] Medication orders and management [x] Patient/Family updates as able [x] Care Coordination and Documentation. Diagnoses HAP (hospital-acquired pneumonia) J18.9; Y95
[2025-03-29] VITALS (59 sets, daily range): BP systolic 100–131; BP diastolic 44–64; PULSE 58–79; RESP 16–36; TEMP 36.9; O2SAT 83–97
[2025-03-29 03:54] LABS: Hematocrit 34.9 % (37-53); Hemoglobin 11.00 g/dL (11.27-16.99); Mean Corpuscular HGB Conc 31.5 g/dL (30-55); Mean Corpuscular Hemoglobin 29.5 pg (27-33); Mean Corpuscular Volume 93.6 fl (82-101); Nucleated Red Blood Cells % 0 %; Platelet Count 378 10^3/cmm (157-399); Red Blood Count 3.73 10^6/uL (3.85-5.65); White Blood Count 21.08 10^3/uL (3.29-11.43)
[2025-03-29 04:35] LABS: Alanine Aminotransferase 53 U/L (0-41); Albumin Level 2.4 g/dL (3.5-5.2); Alkaline Phosphatase 85 U/L (40-130); Anion Gap 15.2 (5-19); Aspartate Amino Transferase 43 U/L (0-40); Blood Urea Nitrogen 44 mg/dL (8-23); Calcium 8.1 mg/dL (8.5-10.5); Carbon Dioxide 21 mmol/L (22-29); Chloride 107 mmol/L (98-107); Globulin 3.0 g/dL (1.3-4.6); Glucose 143 mg/dL (65-115); Magnesium 1.6 mg/dL (1.7-2.3); Osmolality Calculated 302 mOsm/kg (285-295); Potassium 4.2 mmol/L (3.5-5.1); Sodium 139 mmol/L (136-145); Total Protein 5.4 g/dL (6.6-8.7)
[2025-03-29] MEDS: heparin 5,000 unit/mL INJ 1 mL 5000 UNIT SUBCUT ×2 (05:28→16:08)
[2025-03-29] MEDS: sodium chloride 3.5% neb 4 mL Neb INHALATION ×2 (08:08→20:05)
[2025-03-29] MEDS: meropenem 1,000 mg SDV 1000 MG IVP ×2 (08:11→19:31)
--- NOTE | 2025-03-29 18:26 | P.PN_ITS ---
Subjective 2 Subjective: Patient appears to be doing better, still saturating 90 to 92% on high flow nasal cannula, producing more secretions. Vitals/I&O/Wt Last Vital Signs Temp 98.7 F 03/30/25 04:00 Pulse 81 03/30/25 04:00 Resp 27 H 03/30/25 04:00 BP 123/55 03/30/25 04:00 Pulse Ox 89 L 03/30/25 04:00 O2 Del Method Heated High Flow 03/30/25 04:00 O2 Flow Rate 60 03/30/25 03:23 FiO2 60 03/30/25 03:23 03/29/25 03/29/25 03/30/25 14:59 22:59 06:59 Intake Total 1000 / 1000 Output Total 200 / 200 400 / 600 Balance 1000 / 1000 -200 / 800 -400 / 400 Weight last 48 hrs Weight 83.506 kg Physical Exam 2 Narrative: General: A&Ox4, denies pain, currently on HHF HEENT: Normo-cephalic, atraumatic, grossly unremarkable exam Cardio: NSR, normal S1-S2 w/o any murmurs, rubs, or gallops and JVD normal Respiratory: Coarse to bilateral upper and lower lobes on auscultation, on HHF GI: Abd soft, non-tender, non-distended, normo-active bowel sounds present Neuro: Moves all extremities, no sensory deficits, Normal speech Behavior: Appropriate and cooperative Extremities: Adequate palpable pulses. No clubbing, cyanosis or edema, Full ROM Data 03/30/25 03:29 03/30/25 03:29 Micro: Microbiology 03/28/25 10:52 Gram Stain - Final Sputum - Expectorated Sputum Sputum Culture - Preliminary A&P Assessment and plan 1. HAP (hospital-acquired pneumonia): 85-year-old male with history of COPD, severe bilateral insipidus scarring seen on last CT on prior hospitalization. Recently hospitalized less than 1 month ago for acute bilateral pneumonia. COPD exacerbation with acute hypoxemic respiratory failure, requiring high flow nasal cannula Hospital-acquired pneumonia in a patient without known carbapenem resistance Severe sepsis Primary hypertension BPH Plan: Continue supportive measures with IV steroids Continue wean off high flow nasal cannula as tolerated Ambulate, respiratory therapy, PT/OT Blood pressure well-controlled, continue antihypertensives with amlodipine 5 mg twice daily, discontinue hydrochlorothiazide, continue metoprolol tartrate 25 mg twice daily Repeat chest x-ray Initiate chest PT, 3% nebulized NaCl, frequent DuoNebs, ambulation, sputum induction for Gram stain and culture ? Escalate antibiotics for broader spectrum for hospital-acquired pneumonia With meropenem 1 g IV every 12, patient does not show any cavitary lesions or evidence of necrotic lung, vancomycin discontinued DVT prophylaxis: Heparin subcu 12h GI prophylaxis: Protonix Disposition: Patient is critically ill requiring supplemental oxygen, could progress to mechanical ventilation due to his risk factors. Maintain ICU level of care, continue hemodynamic monitoring PDMP PDMP Reviewed: Not Reviewed Attestations 2 Medical Necessity Statement*: See note above. Patient requires multidisciplinary care, ICU monitoring, remains hypoxemic, stable, slightly improving. Anticipate greater than 2 midnight stay. Coding Level of Care Code Critical Care >/= 30 minutes Critical care time (in minutes): 45 The high probability of a clinically significant, sudden or life threatening deterioration, as referenced in this documentation, required my full and direct attention, intervention and personal management. The critical care time shown is in addition to time spent performing any reported separately billable procedures and includes the following: [x] Data and vital sign review and interpretation [x ] Patient assessment, examination and intervention [x] Medication orders and management [x] Patient/Family updates as able [x] Care Coordination and Documentation. Diagnoses HAP (hospital-acquired pneumonia) J18.9; Y95
[2025-03-30] VITALS (34 sets, daily range): BP systolic 116–136; BP diastolic 50–75; PULSE 70–108; RESP 18–45; TEMP 36.9–37.7; O2SAT 86–94
[2025-03-30 04:01] LABS: Hematocrit 30.0 % (37-53); Hemoglobin 9.80 g/dL (11.27-16.99); Mean Corpuscular HGB Conc 32.7 g/dL (30-55); Mean Corpuscular Hemoglobin 30.0 pg (27-33); Mean Corpuscular Volume 91.7 fl (82-101); Nucleated Red Blood Cells % 0 %; Platelet Count 313 10^3/cmm (157-399); Red Blood Count 3.27 10^6/uL (3.85-5.65); White Blood Count 10.50 10^3/uL (3.29-11.43)
[2025-03-30 04:20] LABS: Alanine Aminotransferase 36 U/L (0-41); Albumin Level 2.3 g/dL (3.5-5.2); Alkaline Phosphatase 78 U/L (40-130); Anion Gap 13.1 (5-19); Aspartate Amino Transferase 23 U/L (0-40); Blood Urea Nitrogen 32 mg/dL (8-23); Calcium 7.6 mg/dL (8.5-10.5); Carbon Dioxide 22 mmol/L (22-29); Chloride 106 mmol/L (98-107); Globulin 2.5 g/dL (1.3-4.6); Glucose 136 mg/dL (65-115); Osmolality Calculated 293 mOsm/kg (285-295); Potassium 4.1 mmol/L (3.5-5.1); Sodium 137 mmol/L (136-145); Total Protein 4.8 g/dL (6.6-8.7)
[2025-03-30 04:28] LABS: Magnesium 1.4 mg/dL (1.7-2.3)
[2025-03-30] MEDS: metoprolol succinate ER (24 HR) 50 mg Tablet PO (05:00)
[2025-03-30] MEDS: heparin 5,000 unit/mL INJ 1 mL 5000 UNIT SUBCUT ×2 (05:03→16:15)
--- NOTE | 2025-03-30 05:39 | PC.NURSE ---
When getting patient up to bedside commode, there was stool in the commode from the shift previously. No BM charted for previous shift.
[2025-03-30] MEDS: meropenem 1,000 mg SDV 1000 MG IVP (07:45)
[2025-03-30] MEDS: sodium chloride 3.5% neb 4 mL Neb INHALATION ×2 (08:00→19:36)
--- NOTE | 2025-03-30 11:29 | PC.SOCIAL ---
IMM Update pg 2 of IMM updated and reviewed w/ patient. Copy provided and copy dated, initialed and placed in chart.
--- NOTE | 2025-03-30 15:03 | PC.SLP ---
No DEADENER treatment provided. Patient and nursing reported no difficulties swallowing with breakfast or lunch. Patient refused speech therapy/trials of food at this time.
--- NOTE | 2025-03-30 23:20 | P.PN_ITS ---
Subjective 2 Subjective: Saw patient this afternoon with family at bedside. He continues to produce secretions, still has limited functional capacity, saturation on high flow nasal cannula at 50 L remains at 90 to 92%. But patient appears better. Sputum culture inconclusive. Vitals/I&O/Wt Last Vital Signs Temp 99.7 F H 03/30/25 20:00 Pulse 108 H 03/30/25 20:00 Resp 19 H 03/30/25 20:00 BP 116/75 03/30/25 20:00 Pulse Ox 91 03/30/25 20:00 O2 Del Method High Flow Nasal Cannula 03/30/25 19:37 O2 Flow Rate 60 03/30/25 19:37 FiO2 60 03/30/25 19:37 03/30/25 03/30/25 03/31/25 14:59 22:59 06:59 Intake Total 1000 / 1000 Output Total 550 / 550 Balance 1000 / 1000 -550 / 450 Weight last 48 hrs Weight 83.506 kg Physical Exam 2 Narrative: General: A&Ox4, denies pain, currently on HHF HEENT: Normo-cephalic, atraumatic, grossly unremarkable exam Cardio: NSR, normal S1-S2 w/o any murmurs, rubs, or gallops and JVD normal Respiratory: Coarse to bilateral upper and lower lobes on auscultation, on HHF GI: Abd soft, non-tender, non-distended, normo-active bowel sounds present Neuro: Moves all extremities, no sensory deficits, Normal speech Behavior: Appropriate and cooperative Extremities: Adequate palpable pulses. No clubbing, cyanosis or edema, Full ROM Data 03/30/25 03:29 03/30/25 03:29 Micro: Microbiology 03/29/25 23:49 Gram Stain - Final Sputum - Expectorated Sputum 03/28/25 10:52 Gram Stain - Final Sputum - Expectorated Sputum Sputum Culture - Final A&P Assessment and plan 1. HAP (hospital-acquired pneumonia): 85-year-old male with history of COPD, severe bilateral insipidus scarring seen on last CT on prior hospitalization. Recently hospitalized less than 1 month ago for acute bilateral pneumonia. COPD exacerbation with acute hypoxemic respiratory failure, requiring high flow nasal cannula Hospital-acquired pneumonia in a patient without known carbapenem resistance Severe sepsis Primary hypertension BPH Plan: Continue supportive measures with IV steroids Continue wean off high flow nasal cannula as tolerated Ambulate, respiratory therapy, PT/OT Blood pressure well-controlled, continue antihypertensives with amlodipine 5 mg twice daily, discontinue hydrochlorothiazide, continue metoprolol tartrate 25 mg twice daily Chest x-ray remains unchanged Continue chest PT,, frequent DuoNebs, ambulation, sputum induction for Gram stain and culture ?De-escalated antibiotics, With leukocytosis resolving. No evidence of MRSA. Discontinue IV meropenem and substitute for Augmentin and Levaquin, dose to his kidney function with creatinine clearance less than 30., patient does not show any cavitary lesions or evidence of necrotic lung, vancomycin discontinued. Labs in AM. DVT prophylaxis: Heparin subcu 12h GI prophylaxis: Protonix Disposition: Patient is critically ill requiring supplemental oxygen, could progress to mechanical ventilation due to his risk factors. Maintain ICU level of care, continue hemodynamic monitoring PDMP PDMP Reviewed: Not Reviewed Attestations 2 Medical Necessity Statement*: See note above. Patient requires multidisciplinary care, ICU monitoring, remains hypoxemic, stable, slightly improving. Anticipate greater than 2 midnight stay. Coding Level of Care Code Critical Care >/= 30 minutes Critical care time (in minutes): 45 The high probability of a clinically significant, sudden or life threatening deterioration, as referenced in this documentation, required my full and direct attention, intervention and personal management. The critical care time shown is in addition to time spent performing any reported separately billable procedures and includes the following: [x] Data and vital sign review and interpretation [x ] Patient assessment, examination and intervention [x] Medication orders and management [x] Patient/Family updates as able [x] Care Coordination and Documentation. Diagnoses HAP (hospital-acquired pneumonia) J18.9; Y95
[2025-03-31] VITALS (12 sets, daily range): BP systolic 118–142; BP diastolic 57–72; PULSE 72–88; RESP 20–34; TEMP 36.7–36.9; O2SAT 87–96
[2025-03-31 02:40] LABS: Hematocrit 28.6 % (37-53); Hemoglobin 9.30 g/dL (11.27-16.99); Mean Corpuscular HGB Conc 32.5 g/dL (30-55); Mean Corpuscular Hemoglobin 29.9 pg (27-33); Mean Corpuscular Volume 92.0 fl (82-101); Nucleated Red Blood Cells % 0 %; Platelet Count 241 10^3/cmm (157-399); Red Blood Count 3.11 10^6/uL (3.85-5.65); White Blood Count 10.21 10^3/uL (3.29-11.43)
[2025-03-31 03:00] LABS: Magnesium 1.7 mg/dL (1.7-2.3)
[2025-03-31 03:01] LABS: Alanine Aminotransferase 35 U/L (0-41); Albumin Level 2.3 g/dL (3.5-5.2); Alkaline Phosphatase 77 U/L (40-130); Anion Gap 13.4 (5-19); Aspartate Amino Transferase 23 U/L (0-40); Blood Urea Nitrogen 32 mg/dL (8-23); Calcium 7.9 mg/dL (8.5-10.5); Carbon Dioxide 23 mmol/L (22-29); Chloride 106 mmol/L (98-107); Globulin 2.1 g/dL (1.3-4.6); Glucose 139 mg/dL (65-115); Osmolality Calculated 295 mOsm/kg (285-295); Potassium 4.4 mmol/L (3.5-5.1); Sodium 138 mmol/L (136-145); Total Protein 4.4 g/dL (6.6-8.7)
[2025-03-31] MEDS: metoprolol succinate ER (24 HR) 50 mg Tablet PO (04:51)
[2025-03-31] MEDS: heparin 5,000 unit/mL INJ 1 mL 5000 UNIT SUBCUT ×2 (04:57→17:25)
[2025-03-31] MEDS: sodium chloride 3.5% neb 4 mL Neb INHALATION (07:31)
--- NOTE | 2025-03-31 19:46 | P.PN_ITS ---
Subjective 2 Subjective: Patient continues to improve. Vital stable. Remains on heated high flow, flow rate has been successfully decreased to 45 L/45 FiO2. He had momentary dip saturation 87%, but now he is stable at 90 to 91%. Tolerating p.o. antibiotics well. Asking about some help for sleep. Was able to get out of bed with physical therapy today and sit in the chair, he is back in bed now. Vitals/I&O/Wt Last Vital Signs Temp 98.4 F 03/31/25 07:28 Pulse 84 03/31/25 16:00 Resp 22 H 03/31/25 16:00 BP 137/64 03/31/25 16:00 Pulse Ox 88 L 03/31/25 16:00 O2 Del Method Heated High Flow 03/31/25 14:00 O2 Flow Rate 45 03/31/25 16:00 FiO2 45 03/31/25 16:00 03/31/25 03/31/25 03/31/25 06:59 14:59 22:59 Intake Total 180 / 1180 600 / 600 Output Total 350 / 900 200 / 200 Balance -170 / 280 600 / 600 -200 / 400 Weight last 48 hrs Weight 83.597 kg Weight 83.506 kg Physical Exam 2 Narrative: General: A&Ox4, denies pain, currently on HHF HEENT: Normo-cephalic, atraumatic, grossly unremarkable exam Cardio: NSR, normal S1-S2 w/o any murmurs, rubs, or gallops and JVD normal Respiratory: Coarse to bilateral upper and lower lobes on auscultation, on HHF GI: Abd soft, non-tender, non-distended, normo-active bowel sounds present Neuro: Moves all extremities, no sensory deficits, Normal speech Behavior: Appropriate and cooperative Extremities: Adequate palpable pulses. No clubbing, cyanosis or edema, Full ROM Data 04/01/25 04:33 04/01/25 04:33 Micro: Microbiology 03/31/25 08:17 Gram Stain - Final Sputum - Expectorated Sputum 03/29/25 23:49 Gram Stain - Final Sputum - Expectorated Sputum Sputum Culture - Final 03/26/25 09:50 Blood Culture - Final Blood NO GROWTH AFTER 5 DAYS 03/26/25 09:43 Blood Culture - Final Blood NO GROWTH AFTER 5 DAYS A&P Assessment and plan 1. HAP (hospital-acquired pneumonia): 85-year-old male with history of COPD, severe bilateral insipidus scarring seen on last CT on prior hospitalization. Recently hospitalized less than 1 month ago for acute bilateral pneumonia. COPD exacerbation with acute hypoxemic respiratory failure, requiring high flow nasal cannula Hospital-acquired pneumonia in a patient without known carbapenem resistance Severe sepsis Primary hypertension BPH Plan: IV steroids completed, patient is not wheezing just producing copious mucus. Continue wean off high flow nasal cannula as tolerated Ambulate, respiratory therapy, PT/OT Blood pressure well-controlled, continue antihypertensives with amlodipine 5 mg twice daily, discontinued hydrochlorothiazide, continue metoprolol tartrate 25 mg twice daily Chest x-ray remains unchanged Continue chest PT,, frequent DuoNebs, ambulation, sputum induction for Gram stain and culture (results pending) ?De-escalated antibiotics, With leukocytosis resolving. No evidence of MRSA. Discontinued IV meropenem and substituted since yesterday for Augmentin and Levaquin, dose to his kidney function with creatinine clearance less than 30., patient does not show any cavitary lesions or evidence of necrotic lung, vancomycin discontinued. Repeat labs in AM. DVT prophylaxis: Heparin subcu 12h GI prophylaxis: Protonix Disposition: Patient is critically ill requiring supplemental oxygen, continues to improve and be weaned off high flow. Safe to transfer to CSU level of care. PDMP PDMP Reviewed: Not Reviewed Attestations 2 Medical Necessity Statement*: See note above. Patient requires multidisciplinary care, remains hypoxemic supported by HFNC, stable, slightly improving. Anticipate greater than 2 midnight stay. Diagnoses HAP (hospital-acquired pneumonia) J18.9; Y95
[2025-04-01] VITALS (15 sets, daily range): BP systolic 139–144; BP diastolic 60–93; PULSE 71–91; RESP 18–33; TEMP 36.2–37.1; O2SAT 86–91
[2025-04-01] MEDS: heparin 5,000 unit/mL INJ 1 mL 5000 UNIT SUBCUT ×2 (04:27→17:29)
[2025-04-01] MEDS: metoprolol succinate ER (24 HR) 50 mg Tablet PO (04:27)
[2025-04-01 05:07] LABS: Hematocrit 32.0 % (37-53); Hemoglobin 9.90 g/dL (11.27-16.99); Mean Corpuscular HGB Conc 30.9 g/dL (30-55); Mean Corpuscular Hemoglobin 29.2 pg (27-33); Mean Corpuscular Volume 94.4 fl (82-101); Nucleated Red Blood Cells % 0 %; Platelet Count 320 10^3/cmm (157-399); Red Blood Count 3.39 10^6/uL (3.85-5.65); White Blood Count 12.25 10^3/uL (3.29-11.43)
[2025-04-01 05:41] LABS: Alanine Aminotransferase 28 U/L (0-41); Albumin Level 2.4 g/dL (3.5-5.2); Alkaline Phosphatase 85 U/L (40-130); Anion Gap 17.2 (5-19); Aspartate Amino Transferase 18 U/L (0-40); Blood Urea Nitrogen 28 mg/dL (8-23); Calcium 8.3 mg/dL (8.5-10.5); Carbon Dioxide 22 mmol/L (22-29); Chloride 103 mmol/L (98-107); Globulin 3.1 g/dL (1.3-4.6); Glucose 155 mg/dL (65-115); Magnesium 1.6 mg/dL (1.7-2.3); Osmolality Calculated 295 mOsm/kg (285-295); Potassium 4.2 mmol/L (3.5-5.1); Sodium 138 mmol/L (136-145); Total Protein 5.5 g/dL (6.6-8.7)
[2025-04-01] MEDS: sodium chloride 3.5% neb 4 mL Neb INHALATION ×2 (08:26→21:07)
--- NOTE | 2025-04-01 22:56 | P.PN_ITS ---
Subjective 2 Subjective: Patient continues to get up to chair and back to bed with help with PT daily. Still coughing up secretions. Maintains on high flow nasal cannula, heated, 45 L/min with FiO2 ratio of 62. SpO2 maintains consistent at 90 to 91%. Vitals/I&O/Wt Last Vital Signs Temp 97.9 F 04/01/25 19:57 Pulse 87 04/01/25 21:12 Resp 22 H 04/01/25 21:12 BP 139/60 04/01/25 19:57 Pulse Ox 90 04/01/25 21:12 O2 Del Method High Flow Nasal Cannula 04/01/25 21:12 O2 Flow Rate 45 04/01/25 21:12 FiO2 62 04/01/25 21:12 04/01/25 04/01/25 04/01/25 06:59 14:59 22:59 Intake Total 480 / 480 240 / 720 Output Total 200 / 1000 550 / 550 Balance -200 / -400 480 / 480 -310 / 170 Weight last 48 hrs Weight 82.01 kg Weight 83.597 kg Physical Exam 2 Narrative: General: A&Ox4, denies pain, currently on HHF HEENT: Normo-cephalic, atraumatic, grossly unremarkable exam Cardio: NSR, normal S1-S2 w/o any murmurs, rubs, or gallops and JVD normal Respiratory: Coarse to bilateral upper and lower lobes on auscultation, on HHF GI: Abd soft, non-tender, non-distended, normo-active bowel sounds present Neuro: Moves all extremities, no sensory deficits, Normal speech Behavior: Appropriate and cooperative Extremities: Adequate palpable pulses. No clubbing, cyanosis or edema, Full ROM Data 04/01/25 04:33 04/01/25 04:33 Micro: Microbiology 03/29/25 23:49 Gram Stain - Final Sputum - Expectorated Sputum Sputum Culture - Final 03/31/25 08:17 Gram Stain - Final Sputum - Expectorated Sputum Sputum Culture - Preliminary A&P Assessment and plan 1. HAP (hospital-acquired pneumonia): 85-year-old male with history of COPD, severe bilateral insipidus scarring seen on last CT on prior hospitalization. Recently hospitalized less than 1 month ago for acute bilateral pneumonia. COPD exacerbation with acute hypoxemic respiratory failure, requiring high flow nasal cannula, oxygenation plateaued Hospital-acquired pneumonia in a patient without known carbapenem resistance Severe sepsis, resolved Primary hypertension, stable on home meds BPH Plan: IV steroids completed, patient is not wheezing just producing copious mucus. Continue wean off high flow nasal cannula as tolerated. Maintain at 45 L/min, continue to wean FiO2 ratio as tolerated to maintain SpO2 at 90 to 96%. Ambulate, respiratory therapy, PT/OT Blood pressure well-controlled, consolidated amlodipine from 5 mg twice daily to 10 mg daily Consolidate metoprolol tartrate 25 mg twice daily to metoprolol succinate 50 mg daily Repeat chest x-ray in a.m. to confirm improving infiltrates Continue chest PT,, frequent DuoNebs, ambulation, induced Gram stain and culture showed no pathogenic organisms ?De-escalated antibiotics, With leukocytosis resolving. No evidence of MRSA. Continue to stepdown antibiotic therapy. Patient has signs of hypersensitivity to the Augmentin with consistently rising eosinophilia. Pseudomonas is still a concern, so patient transition to renally adjusted oral levofloxacin to 50 mg daily for consolidation therapy following clinical improvement on IV meropenem for culture-negative HAP. DVT prophylaxis: Heparin subcu 12h GI prophylaxis: Famotidine 10 mg nightly Disposition: Patient is improving slowly, cooperating with PT, getting out of bed to chair and he is motivated to recover. Discussed with family today at bedside and patient, open to going to transition to shelter facility, as soon as we can wean him from the high flow nasal cannula which I anticipate will be relatively soon. PDMP PDMP Reviewed: Not Reviewed Attestations 2 Medical Necessity Statement*: See note above. Patient requires multidisciplinary care, remains hypoxemic supported by HFNC, stable, slightly improving. Anticipate greater than 2 midnight stay. Diagnoses HAP (hospital-acquired pneumonia) J18.9; Y95
[2025-04-02] VITALS (17 sets, daily range): BP systolic 107–132; BP diastolic 53–84; PULSE 71–99; RESP 16–34; TEMP 36.3–36.8; O2SAT 86–94
[2025-04-02] MEDS: ondansetron 2 mg/ML SDV 2 mL 4 MG IVP (00:50)
[2025-04-02] MEDS: metoprolol succinate ER (24 HR) 50 mg Tablet PO (04:19)
[2025-04-02] MEDS: heparin 5,000 unit/mL INJ 1 mL 5000 UNIT SUBCUT ×2 (04:20→16:11)
--- NOTE | 2025-04-02 06:00 | XRR_ITS ---
PROCEDURE INFORMATION: Exam: XR Chest Exam date and time: 04/02/2025 5:34 AM Age: 85 years old Clinical indication: History--f/u for pneumonia. Smoking--ex. Cancer (type)--n. Surgery--no in thorax; Additional info: Resolving pna TECHNIQUE: Imaging protocol: Radiologic exam of the chest. Views: 1 view. COMPARISON: CR XR chest 1V portable [id number] 03/28/2025 10:04 AM FINDINGS: Tubes, catheters and devices: There are overlying monitoring leads. Lungs: Bilateral pulmonary opacities are unchanged. Pleural spaces: Unremarkable. No pleural effusion. No pneumothorax. Heart/Mediastinum: Cardiac silhouette mediastinum remain stable. Bones/joints: Unremarkable. XR/XR chest 1V portable [id number] IMPRESSION: No acute significant change.
[2025-04-02 09:04] LABS: Hematocrit 33.5 % (37-53); Hemoglobin 9.90 g/dL (11.27-16.99); Mean Corpuscular HGB Conc 29.6 g/dL (30-55); Mean Corpuscular Hemoglobin 29.2 pg (27-33); Mean Corpuscular Volume 98.8 fl (82-101); Nucleated Red Blood Cells % 0 %; Platelet Count 349 10^3/cmm (157-399); Red Blood Count 3.39 10^6/uL (3.85-5.65); White Blood Count 11.12 10^3/uL (3.29-11.43)
[2025-04-02 09:28] LABS: Alanine Aminotransferase 25 U/L (0-41); Albumin Level 2.3 g/dL (3.5-5.2); Alkaline Phosphatase 84 U/L (40-130); Anion Gap 14.1 (5-19); Aspartate Amino Transferase 22 U/L (0-40); Blood Urea Nitrogen 24 mg/dL (8-23); Calcium 8.2 mg/dL (8.5-10.5); Carbon Dioxide 25 mmol/L (22-29); Chloride 101 mmol/L (98-107); Globulin 2.9 g/dL (1.3-4.6); Glucose 128 mg/dL (65-115); Magnesium 1.7 mg/dL (1.7-2.3); Osmolality Calculated 286 mOsm/kg (285-295); Potassium 5.1 mmol/L (3.5-5.1); Sodium 135 mmol/L (136-145); Total Protein 5.2 g/dL (6.6-8.7)
[2025-04-02] MEDS: aztreonam 1,000 MG in sodium chloride 0.9% (plus) 50 ML 100 MG IV ×2 (13:45→21:09)
[2025-04-02] MEDS: MELATONIN 3 MG TABLET PO (21:08)
--- NOTE | 2025-04-02 23:36 | P.PN_ITS ---
Subjective 2 Subjective: Patient is a very pleasant 85-year-old male seen and examined at bedside on hospital rounds today. Patient sitting up in bed with continued increased respirations and shortness of breath, states that he feels tired and just wants to sleep. Patient denies any new or worsening symptoms. Reviewed previous providers documentation, agreed to the plan documented previously and discharged on this date of service with no addendum's or additions. Vital signs are stable, oxygen saturation greater than 88% on high flow nasal cannula. Will continue current interventions and CSU, with continued respiratory and PT OT interventions. Vitals/I&O/Wt Last Vital Signs Temp 97.4 F L 04/02/25 19:17 Pulse 76 04/03/25 00:00 Resp 18 04/03/25 00:00 BP 125/57 04/03/25 00:00 Pulse Ox 88 L 04/03/25 00:00 O2 Del Method High Flow Nasal Cannula 04/03/25 00:00 O2 Flow Rate 60 04/02/25 20:00 FiO2 75 04/02/25 20:00 04/02/25 04/02/25 04/03/25 14:59 22:59 06:59 Intake Total 290 / 290 50 / 340 Output Total 475 / 475 175 / 650 Balance -185 / -185 -125 / -310 Weight last 48 hrs Weight 82.146 kg Weight 82.01 kg Physical Exam 2 Narrative: General: A&Ox4, denies pain, currently on HHF HEENT: Normo-cephalic, atraumatic, grossly unremarkable exam Cardio: NSR, normal S1-S2 w/o any murmurs, rubs, or gallops and JVD normal Respiratory: Coarse to bilateral upper and lower lobes on auscultation, on HHF GI: Abd soft, non-tender, non-distended, normo-active bowel sounds present Neuro: Moves all extremities, no sensory deficits, Normal speech Behavior: Appropriate and cooperative Extremities: Adequate palpable pulses. No clubbing, cyanosis or edema, Full ROM Data 04/02/25 08:57 04/02/25 08:57 A&P Assessment and plan 1. HAP (hospital-acquired pneumonia): 85-year-old male with history of COPD, severe bilateral insipidus scarring seen on last CT on prior hospitalization. Recently hospitalized less than 1 month ago for acute bilateral pneumonia. COPD exacerbation with acute hypoxemic respiratory failure, requiring high flow nasal cannula, oxygenation plateaued Hospital-acquired pneumonia in a patient without known carbapenem resistance Severe sepsis, resolved Primary hypertension, stable on home meds BPH Plan: IV steroids completed, patient is not wheezing just producing copious mucus. Continue wean off high flow nasal cannula as tolerated. Maintain at 45 L/min, continue to wean FiO2 ratio as tolerated to maintain SpO2 at 90 to 96%. Ambulate, respiratory therapy, PT/OT Blood pressure well-controlled, consolidated amlodipine from 5 mg twice daily to 10 mg daily Consolidate metoprolol tartrate 25 mg twice daily to metoprolol succinate 50 mg daily Repeat chest x-ray in a.m. to confirm improving infiltrates Continue chest PT,, frequent DuoNebs, ambulation, induced Gram stain and culture showed no pathogenic organisms ?De-escalated antibiotics, With leukocytosis resolving. No evidence of MRSA. Continue to stepdown antibiotic therapy. Patient has signs of hypersensitivity to the Augmentin with consistently rising eosinophilia. Pseudomonas is still a concern, so patient transition to renally adjusted oral levofloxacin to 50 mg daily for consolidation therapy following clinical improvement on IV meropenem for culture-negative HAP. DVT prophylaxis: Heparin subcu 12h GI prophylaxis: Famotidine 10 mg nightly Disposition: Patient is improving slowly, cooperating with PT, getting out of bed to chair and he is motivated to recover. Discussed with family today at bedside and patient, open to going to transition to intermediate facility, as soon as we can wean him from the high flow nasal cannula which I anticipate will be relatively soon. PDMP PDMP Reviewed: Not Reviewed Attestations 2 Medical Necessity Statement*: See note above. Patient requires multidisciplinary care, remains hypoxemic supported by HFNC, stable, slightly improving. Anticipate greater than 2 midnight stay. Coding Level of Care Code 41874 Diagnoses HAP (hospital-acquired pneumonia) J18.9; Y95
[2025-04-03] VITALS (18 sets, daily range): BP systolic 102–126; BP diastolic 48–57; PULSE 72–104; RESP 12–36; TEMP 36.2–36.7; O2SAT 86–93
--- NOTE | 2025-04-03 00:33 | P.CONIM_ITS ---
Providers/Reason For Consult 2 Consulting Physician/Specialty*: Dianne Mack MD/ Infectious disease Reason for Consult*: Hypoxic respiratory failure, concern for pneumonia Requesting Physician: Iron Rodriguez MD Attending Physician: Iron Rodriguez MD Primary Care Provider: David Garg MD History of Present Illness History of Present Illness History obtained by talking to hospitalist and by chart review, patient unable to participate meaningfully due to being on HHF, difficulty hearing via teleheath equipment and being acutely ill. Umer Arango is a 85 year old male diabetes, hypertension, CKD stage III, coronary arterial artery stenosis, BPH. He was recently admitted to the hospital between 03/11-03/13 for community acquired pneumonia and discharged with po cefdinir and levaquin. Ct chest on that admission had shown severe emphysematous changes with multifocal bronchopneumonia. He returned to the hospital on 03/26 complaing of worsening shortness of breath , continued cough with expectoration. he was saturating 74% on RA and needed to be started on HHF. CXR on 03/26 showed worsening opacities. He was started on cefepime and vancomycin between 03/26- 03/28, then changed to iv meropenem and vancomycin on 03/28 , then transitioned to po augmentin and levaquin when he showed transient improvement in leukocytosis. There was concern for eosinophilia noted on differential with concern for beta lactam induced eosinophilia, therefore switched to aztreonam, levaquin and vancomycin. ID consult is requestd today for abx recommendations. At [facility] this exam patient is noted to be acutely ill in the C[facility]. He appears fatigued, tachypneic however remains alert and awak. It is difficult for marisol to hold a conversation. On HHF 65% fi02 at 60lpm. CXR has shown worsening B/L infiltrates compared to previous admission. Review of Systems 2 General: Reports: ROS unobtainable due to medical condition Medications/Allergies Home Medications ?Medication ?Instructions ?Recorded ?Confirmed ?Last Taken ?Type aspirin 81 mg tablet,delayed 81 mg PO DAILY #90 tabs 0 09/22/23 03/26/25 03/26/25 Rx release (Enteric Coated Aspirin) metoprolol tartrate 50 mg tablet 25 mg PO BID 12/22/24 03/26/25 03/26/25 History cholecalciferol (vitamin D3) 50 50 mcg PO DAILY #30 ca ps 12/28/24 03/26/25 03/26/25 Rx mcg (2,000 unit) capsule cyanocobalamin (vitamin B-12) 500 500 mcg PO DAILY #30 tabs 12/28/24 03/26/25 03/26/25 Rx mcg tablet (Vitamin B-12) magnesium 200 mg tablet 200 mg PO DAILY 03/11/2503/26/25 History budesonide 0.5 mg/2 mL suspension 0.5 mg (2 mL) inhala tion 03/13/25 03/26/25 03/26/25 Rx for nebulization BID.RESPIRATORY 30 days #120 mL ipratropium 0.5 mg-albuterol 3 mg 3 ml inhalation Q8H PRN shortness 03/13/25 03/26/25 Unknown Rx (2.5 mg base)/3 mL nebulization of breath #90 mL soln pantoprazole 40 mg tablet,delayed 40 mg PO DAILY 30 da ys #30 tabs 03/13/25 03/26/25 03/26/25 Rx release amlodipine 5 mg tablet 5 mg PO BID 03/26/25 5 03/26/25 History finasteride 5 mg tablet 5 mg PO DAILY 03/26/2503/2603/26/25 History fluoxetine 20 mg capsule 20 mg PO DAILY 03/26/2503/0603/26/25 History hydrochlorothiazide 12.5 mg capsule 12.5 mg PO DAILY 1 05/27/24 03/26/25 Unknown History Allergies Allergy/AdvReac Type Severity Reaction Status Date / Time lisinopril AdvReac Mild Unknown Verified 03/11/25 08:34 Current Medications Generic Name Dose Route Start Last Admin Trade Name Freq PRN Reason Stop Dose Admin Albuterol/Ipratropium 3 ml 03/26/25 15:19 03/28/25 07:53 Ipratropium-Albuterol 3 Ml Neb INHALATION 3 ml Q6H PRN Administration SHORTNESS OF BREATH Albuterol/Ipratropium 3 ml 03/28/25 14:00 04/02/25 20:19 Ipratropium-Albuterol 3 Ml Neb INHALATION 3 ml Q6H.RESP JAVAD Administration Amlodipine Besylate 10 mg 04/02/25 05:00 04/02/25 04:19 Amlodipine 5 Mg Tablet PO 10 mg DAILY JAVAD Administration Aspirin 81 mg 03/27/25 05:00 04/02/25 04:19 Aspirin 81 Mg Ec Tablet PO 81 mg DAILY JAVAD Administration Budesonide 0.5 mg 03/26/25 20:00 04/02/25 20:19 Budesonide 0.5 Mg/2 Ml Neb INHALATION 0.5 mg BID.RESPIRATORY JAVAD Administration Docusate Sodium 100 mg 03/26/25 17:00 04/02/25 16:42 Docusate Sodium 100 Mg Capsule PO Not Given BID JAVAD Famotidine 10 mg 04/02/25 21:00 04/02/25 21:08 Famotidine 20 Mg Tablet PO 10 mg BEDTIME JAVAD Administration Finasteride 5 mg 03/27/25 05:00 04/02/25 04:19 Finasteride 5 Mg Tablet PO 5 mg DAILY JAVAD Administration Fluoxetine HCl 20 mg 03/27/25 05:00 04/02/25 04:19 Fluoxetine 20 Mg Capsule PO 20 mg DAILY JAVAD Administration Heparin Sodium (Porcine) 5,000 unit 03/26/25 15:15 04/02/25 16:11 Heparin 5,000 Unit/Ml Inj 1 Ml SUBCUT 5,000 unit Q12H JAVAD Administration Aztreonam 1,000 mg/ Sodium 50 mls @ 100 mls/hr 04/02/25 13:00 04/02/25 21:58 Chloride IV Infused Q8H JAVAD Infusion Protocol Insulin Human Lispro 0 unit 03/26/25 18:00 04/02/25 21:09 Insulin Lispro 100 Unit/1 Ml SUBCUT Not Given WM&BEDTIME JAVAD Protocol Levofloxacin 250 mg 04/02/25 14:00 04/02/25 13:45 Levofloxacin 500 Mg Tablet PO 250 mg Q24H JAVAD Administration Protocol Magnesium Oxide 400 mg 04/02/25 05:00 04/02/25 04:19 Magnesium Oxide 400 Mg Tablet PO 400 mg DAILY JAVAD Administration Melatonin 3 mg 04/01/25 22:48 04/02/25 21:08 Melatonin 3 Mg Tablet PO 3 mg BEDTIME JAVAD Administration Metoprolol Succinate 50 mg 03/30/25 05:00 04/02/25 04:19 Metoprolol Succinate Er (24 Hr) 50 Mg Tablet PO 50 mg DAILY JAVAD Administration Ondansetron HCl 4 mg 03/26/25 15:13 04/02/25 00:50 Ondansetron 2 Mg/Ml Sdv 2 Ml IVP 4 mg Q8H PRN Administration vomiting, or N/V if npo PFSH Acute 2 PFSH: Medical History (Updated 04/04/25 @ 14:59 by Dianne Mack MD) Emphysema lung Carotid artery stenosis CKD (chronic kidney disease) 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 [place] Pancreatic cyst Benign Liver cyst Benign Hypertension Diabetes Surgical History Subclavian artery stenosis Subclavian artery bypass - 06/17/23 - Dr Jeff History of carotid endarterectomy 06/17/23 - Dr Jeff - [facility] Home History of bilateral tympanoplasty History of appendectomy History of cholecystectomy Family History Brother CAD (coronary artery disease) of [place] Mother Atrial fibrillation Social History (Updated 04/04/25 @ 11:17 by Terence Vieyra MD) Smoking and tobacco/nicotine status: former use of tobacco/nicotine Quit status (tobacco/nicotine): has quit using Year quit tobacco: 1996 - pack year histo Alcohol intake: former Year of sobriety/quit date alcohol: 1985 Current occupational status: retired 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 Vitals/I&O/Wt Last Vital Signs Temp 97.4 F L 04/02/25 19:17 Pulse 76 04/03/25 00:00 Resp 18 04/03/25 00:00 BP 125/57 04/03/25 00:00 Pulse Ox 88 L 04/03/25 00:00 O2 Del Method High Flow Nasal Cannula 04/03/25 00:00 O2 Flow Rate 60 04/02/25 20:00 FiO2 75 04/02/25 20:00 04/02/25 04/02/25 04/03/25 14:59 22:59 06:59 Intake Total 290 / 290 50 / 340 Output Total 475 / 475 175 / 650 Balance -185 / -185 -125 / -310 Weight last 48 hrs Weight 82.146 kg Weight 82.01 kg Physical Exam 2 Narrative: Assessed via telehealth Acutely ill appearing, tachypneic 65% fi02 at 60lpm awake, alert, oriented no focal neurological deficits No edema, clubbing or cyanosis Limited exam due to telehealth assessment Data 04/04/25 05:33 04/04/25 05:33 Other data: Radiology Impressions [address] [address] XRay Report Signed Patient: Umer Arango Unit #: [id number] : 1940 Age/Sex: 85 / M ADM Date: 03/26/25 Loc: ER Room/Bed: Attending: Ordering Provider/Ordering MD: Zulema Guillen MD Date of Service: 03/26/25 Procedure(s): XR chest 1V portable [id number] Accession Number(s): [id number] Report Number: [id number] WS: [id number] Portable AP upright chest, 03/26/2025 Clinical Data: Shortness of breath Comparison: Portable chest, 03/11/2025 Findings: The bilateral patchy opacities in both lungs appear more dense. No nodules or masses are seen. The heart is slightly enlarged. No pneumothorax is present. The aortic arch shows tortuosity as does the descending thoracic aorta. Monitor leads are on the chest wall. XR/XR chest 1V portable [id number] Impression: 1. Increase in density of bilateral patchy opacities which may represent worsening pneumonia. 2. Cardiomegaly and atherosclerosis. Patient: Umer Arango Unit #: [id number] : 1940 Age/Sex: 84 / M ADM Date: 03/11/25 Loc: [facility] Room/Bed: [facility] Attending: Lupe Pino NP-C Ordering Provider/Ordering MD: Lupe Pino Date of Service: 03/11/25 Procedure(s): CT chest [facility] [address] Accession Number(s): [id number] Report Number: [id number] PROCEDURE INFORMATION: Exam: CT Chest Without Contrast; Diagnostic Exam date and time: 03/11/2025 10:30 AM Age: 84 years old Clinical indication: Dyspnea and hyperventilation; Additional info: Dyspnea, hypoxia TECHNIQUE: Imaging protocol: Diagnostic computed tomography of the chest without contrast. Radiation optimization: All CT scans at this facility use at least one of these dose optimization techniques: automated exposure control; mA and/or kV adjustment per patient size (includes targeted exams where dose is matched to clinical indication); or iterative reconstruction. COMPARISON: CT angio chest [id number] 08/18/2022 11:04 AM RADIATION DOSE METRICS: Total DLP (mGy-cm): 467.15 FINDINGS: Lungs: There are findings of severe emphysema of the lung parenchyma with multifocal opacities involving the posteroinferior upper lobes and both lower lobes. The opacities include peribronchovascular consolidation ground-glass pneumonitis Pleural spaces: There are small bilateral pleural effusions. Heart: There are coronary artery calcifications and aortic valve calcification Lymph nodes: There are mediastinal lymph nodes up to 1.1 cm aortopulmonary window and 1.8 cm pretracheal. Vasculature: Unremarkable. No aortic aneurysm. Diaphragm: There is a moderate-sized hiatus hernia. Liver: Hypodensity present in the liver largest left liver lobe 2.5 cm most suggestive of cysts or hemangiomas stable compared to prior exam Gallbladder and biliary ducts: Patient is post cholecystectomy Pancreas: There are findings of calcification of the pancreas with fusiform dilation of the main pancreatic duct and a cystic lesion at the proximal body and neck of the pancreas stable compared to prior exam and findings raise the possibility of diffuse type I PMT type pancreatic abnormalities for characterization and correlation with MRI abdomen pancreatic protocol with and without contrast and MRCP recommended Bones/joints: Unremarkable. No acute fracture. Soft tissues: Unremarkable. Other findings: There is presence of a 2.4 cm right upper pole cyst. CT/CT chest wo con [id number] IMPRESSION: 1. Findings of severe emphysema with multifocal opacities most concerning for multifocal infectious bronchopneumonia pattern 2. Small pleural effusions 3. Moderate-sized hiatus hernia 4. Findings in the pancreas suggest a possibility of a diffuse type I PMT see above common for recommendations incidental finding 5. Stable liver hypodensities as above 6. Findings of right renal cyst COMMENTS: Consistent with the [employer]'s Incidental Findings Committee white paper (J Am Peri Radiol 2018): Any incidental renal lesion less than 1 cm or classified as too small to characterize, or any incidental cystic renal lesion characterized as simple-appearing, is likely benign. No follow-up imaging is recommended for these lesions per consensus recommendations based on imaging criteria. Laboratory Results WBC 10.56 10^3/uL (3.29-11.43) 04/04/25 05:33 RBC 3.20 10^6/uL (3.85-5.65) L 04/04/25 05:33 Hgb 9.20 g/dL (11.27-16.99) L 04/04/25 05:33 Hct 30.4 % (37-53) L 04/04/25 05:33 MCV 95.0 fl (82-101) 04/04/25 05:33 MCH 28.8 pg (27-33) 04/04/25 05:33 MCHC 30.3 g/dL (30-55) 04/04/25 05:33 RDW 12.4 % (12.1-15.1) 04/04/25 05:33 Plt Count 357 10^3/cmm (157-399) 04/04/25 05:33 MPV 10.3 fL (7.4-10.4) 04/04/25 05:33 Neut % (Auto) 68.0 % 04/04/25 05:33 Lymph % (Auto) 8.0 % 04/04/25 05:33 Burnet % (Auto) 11.4 % 04/04/25 05:33 Eos % (Auto) 9.6 % 04/04/25 05:33 Baso % (Auto) 0.7 % 04/04/25 05:33 Neut # (Auto) 7.19 10^3/uL (1.8-7.7) 04/04/25 05:33 Lymph # (Auto) 0.9 10^3/uL (0.8-4.8) 04/04/25 05:33 Burnet # (Auto) 1.2 10^3/uL (0.2-0.9) H 04/04/25 05:33 Eos # (Auto) 1.0 10^3/uL (0.0-0.8) H 04/04/25 05:33 Baso # (Auto) 0.1 10^3/uL (0.0-0.1) 04/04/25 05:33 Nucleated RBC % (auto) 0 % 04/04/25 05:33 Nucleated RBCs # 0.0 /100WBC 04/04/25 05:33 Specimen Type Arterial 04/04/25 13:40 Sample Site Radial, left 04/04/25 13:40 ABG pH 7.32 (7.35-7.45) L 04/04/25 13:40 ABG pCO2 53.4 mmHg (35-45) H 04/04/25 13:40 ABG pO2 79.2 mmHg (80.0-100.0) L 04/04/25 13:40 ABG PO2/FiO2 Ratio 79 04/04/25 13:40 ABG HCO3 27.3 mmol/L (22-26) H 04/04/25 13:40 ABG O2 Saturation 85.7 03/26/25 09:39 ABG Base Excess 0.5 mmol/L (-2.0-2.0) 04/04/25 13:40 Silvio Test Pos 04/04/25 13:40 VBG pH 7.42 (7.32-7.42) 04/04/25 07:15 VBG pCO2 45.2 mmHg (41-51) 04/04/25 07:15 VBG pO2 35.6 mmHg (25-40) 04/04/25 07:15 VBG HCO3 29.0 mmol/L (24-28) H 04/04/25 07:15 VBG Base Excess 3.9 mmol/L (-3.0-3.0) H 04/04/25 07:15 VBG Hematocrit 30.2 % (42-52) L 04/04/25 07:15 A-a O2 Gradient 29.0 mmHg (5-10) H 03/26/25 09:39 Hematocrit 30.9 % (42-52) L 04/04/25 13:40 Hgb O2 Saturation 84.9 % (95-100) L 03/26/25 09:39 Carboxyhemoglobin 0.5 %THgb (0.4-20.1) 03/26/25 09:39 Methemoglobin 0.5 % (0.4-1.5) 03/26/25 09:39 Total Hemoglobin 12.3 g/dL (14-18) L 03/26/25 09:39 Sodium 140.0 mmol/L (131-143) 03/26/25 09:39 Potassium 3.3 mmol/L (3.5-5.0) L 03/26/25 09:39 Glucose 201.0 mg/dL (70-115) H 03/26/25 09:39 Ionized Calcium 1.2 mmol/L (1.1-1.4) 03/26/25 09:39 O2 Delivery Device Vent 04/04/25 13:40 O2 Liters/Min 60.0 % 04/04/25 07:15 FiO2 100.0 % 04/04/25 13:40 Tidal Volume 0.50 04/04/25 13:40 PEEP 8.0 cmH20 04/04/25 13:40 Food And Drug Research Scientist ID Gd 04/04/25 13:40 Sodium 137 mmol/L (136-145) 04/04/25 05:33 Potassium 4.9 mmol/L (3.5-5.1) 04/04/25 05:33 Chloride 102 mmol/L (98-107) 04/04/25 05:33 Carbon Dioxide 27 mmol/L (22-29) 04/04/25 05:33 Anion Gap 12.9 (5-19) 04/04/25 05:33 BUN 22 mg/dL (8-23) 04/04/25 05:33 Creatinine 2.0 mg/dL (0.7-1.2) H 04/04/25 05:33 GFR Calculation Not Reportable 04/04/25 05:33 Glucose 155 mg/dL (65-115) H 04/04/25 05:33 POC Glucose 156 mg/dL (70-110) H 04/04/25 11:05 Estimat Average Glucose 160 03/26/25 09:43 Hemoglobin A1c 7.2 % (4.0-6.0) H 03/26/25 09:43 Calculated Osmolality 290 mOsm/kg (285-295) 04/04/25 05:33 Lactic Acid 2.1 mmol/L (0.5-2.2) 03/26/25 09:43 Lactic Acid (Sepsis) 1.3 mmol/L (0.5-2.2) 03/26/25 12:50 Calcium 8.4 mg/dL (8.5-10.5) L 04/04/25 05:33 Phosphorus 3.3 mg/dL (2.5-4.5) 04/02/25 08:57 Magnesium 1.9 mg/dL (1.7-2.3) 04/04/25 05:33 Total Bilirubin 0.2 mg/dL (0.15-1.2) 04/04/25 05:33 AST 15 U/L (0-40) 04/04/25 05:33 ALT 17 U/L (0-41) 04/04/25 05:33 Alkaline Phosphatase 80 U/L (40-130) 04/04/25 05:33 Troponin T Baseline 41 ng/L (0-15) H 03/26/25 09:43 Troponin T 60 Minute 38.35 ng/L (0-15) H 03/26/25 11:16 Delta Troponin T -2.65 ABS# (0-10) L 03/26/25 11:16 Troponin T Hi Sens 6Hr 37.30 ng/L (0-15) H 03/26/25 15:38 Troponin T Hi Sens 6Hr Delta -3.70 ng/L (0-12) L 03/26/25 15:38 C-Reactive Protein 211.5 mg/L (0.0-4.9) H 03/26/25 09:43 NT-Pro-B Natriuret Pep 5601 pg/mL (0-450) H 03/26/25 09:43 Total Protein 5.2 g/dL (6.6-8.7) L 04/04/25 05:33 Albumin 2.3 g/dL (3.5-5.2) L 04/04/25 05:33 Globulin 2.9 g/dL (1.3-4.6) 04/04/25 05:33 Triglycerides 45 mg/dL (0-150) 03/26/25 15:38 Cholesterol 88 mg/dL (0-200) 03/26/25 15:38 LDL Cholesterol, Calc 39 mg/dL (50-129) L 03/26/25 15:38 HDL Cholesterol 40 mg/dL (60-100) L 03/26/25 15:38 LDL/HDL Ratio 0.98 RATIO (0.00-3.22) 03/26/25 15:38 Cholesterol/HDL Ratio 2.20 mg/dL (1.0-5.00) 03/26/25 15:38 Procalcitonin 0.17 ng/mL (0-0.5) 03/26/25 09:43 Nasal MRSA (PCR) Not detected (Negative) 03/26/25 21:00 Vancomycin Trough 17.0 ug/mL (10-15) H 03/29/25 17:06 Adenovirus (PCR) Not detected (NOT DETECT) 03/26/25 16:04 C. pneumoniae DNA (PCR) Not detected (NOT DETECT) 03/26/25 16:04 Coronavirus 229E (PCR) Not detected (NOT DETECT) 03/26/25 16:04 Human Metapneumovir PCR Not detected (NOT DETECT) 03/26/25 16:04 Influenza A (H1) PCR Not detected (NOT DETECT) 03/26/25 16:04 Influenza A (PCR) Negative (Negative) 03/26/25 09:42 Influ A (H1/09) PCR Not detected (NOT DETECT) 03/26/25 16:04 Influenza A (H3) PCR Not detected (NOT DETECT) 03/26/25 16:04 Influenza Type A (PCR) Not detected (NOT DETECT) 03/26/25 16:04 Influenza Type B (PCR) Not detected (NOT DETECT) 03/26/25 16:04 M. pneumoniae (PCR) Not detected (NOT DETECT) 03/26/25 16:04 Parainfluenza 1 (PCR) Not detected (NOT DETECT) 03/26/25 16:04 Parainfluenza 2 (PCR) Not detected (NOT DETECT) 03/26/25 16:04 Parainfluenza 3 (PCR) Not detected (NOT DETECT) 03/26/25 16:04 Parainfluenza 4 (PCR) Not detected (NOT DETECT) 03/26/25 16:04 RSV (PCR) Negative (Negative) 03/26/25 09:42 RSV Type A (PCR) Not detected (NOT DETECT) 03/26/25 16:04 RSV Type B (PCR) Not detected (NOT DETECT) 03/26/25 16:04 Entero/Rhino (PCR) Not detected (NOT DETECT) 03/26/25 16:04 SARS-CoV-2 (PCR) Not detected (NOT DETECT) 03/26/25 16:04 A&P Assessment and plan 1. ARDS (adult respiratory distress syndrome): 2. Bilateral pneumonia: Plan: 85M recently treated for CAP with cefdinir and doxycycline readmitted on 03/26 with worsening B/L lung infiltrates and acute hypoxic respiratory failure with clinical picture concerning for ARDS. Reviewed CXR with interval significant worsening compared to previous admission Received braod spectrum abx as outlined above Continue Aztreonam and levaquin as he is on currently, add vancomycin for gram positive coverage Sputum cx 03/28 with respiratory shelly Blood cx 03/26 without growth negative urine legionealla and strep antigens negative respiratory viral panel Negative MRSa nasal screen Given worsening infiltrates and clinical course in spite of broad spectrum antimicrobials, concern for atypical process such as endemic mycoses vs non infectious process such as ILD, hypersensitivty pneumonitis on differential. Consider pulmonary consult for bronchoscopy, BAL for cx, including fungal and mycobacterial cx Peripheral evaluation with serum coccidiodes AB, urine histoplasma Ag, histoplasma serology, Blastomyces serology, Serum BD glucan. serum aspergillus GM antigen and sputum PJP PCR. PDMP PDMP Reviewed: Not Reviewed Consult Attestations 2 Medical Necessity Statement: per admitting note Coding Level of Care Code Acute Code for Chg Fwd High MDM includes number and complexity of problems actively addressed during encounter, amount and/or complexity of data reviewed/ordered and described risk of complication, morbidity or mortality of management as documented Diagnoses ARDS (adult respiratory distress syndrome) J80 Bilateral pneumonia J18.9
[2025-04-03] MEDS: heparin 5,000 unit/mL INJ 1 mL 5000 UNIT SUBCUT ×2 (04:29→16:37)
[2025-04-03] MEDS: metoprolol succinate ER (24 HR) 50 mg Tablet PO (04:30)
[2025-04-03] MEDS: aztreonam 1,000 MG in sodium chloride 0.9% (plus) 50 ML 100 MG IV ×3 (04:30→20:32)
--- NOTE | 2025-04-03 15:46 | P.PN_ITS ---
Subjective 2 Subjective: Patient is a very pleasant 85-year-old male seen and examined at bedside on hospital rounds today. Patient continuing to require increased oxygenation with high flow, while oxygen saturations remain poor. Working with respiratory therapy, will make adjustments, pending ABG and initiate on BiPAP while at rest. Greatly appreciate continued ID consultation and management with Dr. Mack, who is made adjustments to antibiotic therapy adding vancomycin. Patient is still very fragile, will work with PT/OT on bed mobility and work towards getting patient up and moving as soon as tolerated. Patient states shortness of breath and weakness, denies worsening symptoms. Vital signs reviewed: Blood pressure 117/52, pulse 78, respirations 24, temp 98.0 ?F, O2 sat 90% on heated high flow at 90. Pending repeat labs. Vitals/I&O/Wt Last Vital Signs Temp 98.0 F 04/03/25 08:00 Pulse 78 04/03/25 15:43 Resp 24 H 04/03/25 15:43 BP 117/52 04/03/25 15:37 Pulse Ox 90 04/03/25 15:43 O2 Del Method Heated High Flow 04/03/25 13:23 O2 Flow Rate 60 04/03/25 15:43 FiO2 90 04/03/25 15:43 04/03/25 04/03/25 04/03/25 06:59 14:59 22:59 Intake Total 50 / 390 850 / 850 50 / 900 Output Total 450 / 1100 300 / 300 Balance -400 / -710 550 / 550 50 / 600 Weight last 48 hrs Weight 80.739 kg Weight 82.146 kg Physical Exam 2 Narrative: General: A&Ox4, denies pain, currently on HHF HEENT: Normo-cephalic, atraumatic, grossly unremarkable exam Cardio: NSR, normal S1-S2 w/o any murmurs, rubs, or gallops and JVD normal Respiratory: Coarse to bilateral upper and lower lobes on auscultation, on HHF GI: Abd soft, non-tender, non-distended, normo-active bowel sounds present Neuro: Moves all extremities, no sensory deficits, Normal speech Behavior: Appropriate and cooperative Extremities: Adequate palpable pulses. No clubbing, cyanosis or edema, Full ROM Data 04/02/25 08:57 04/02/25 08:57 Micro: Microbiology 03/31/25 08:17 Gram Stain - Final Sputum - Expectorated Sputum Sputum Culture - Preliminary A&P Assessment and plan 1. HAP (hospital-acquired pneumonia): 85-year-old male with history of COPD, severe bilateral insipidus scarring seen on last CT on prior hospitalization. Recently hospitalized less than 1 month ago for acute bilateral pneumonia. COPD exacerbation with acute hypoxemic respiratory failure, requiring high flow nasal cannula, oxygenation plateaued Hospital-acquired pneumonia in a patient without known carbapenem resistance Severe sepsis, resolved Plan: IV steroids completed, patient is not wheezing just producing copious mucus. Continue wean off high flow nasal cannula as tolerated. BiPap, will need overnight pulse ox prior to discharge. Ambulate, respiratory therapy, PT/OT Blood pressure well-controlled, consolidated amlodipine from 5 mg twice daily to 10 mg daily Continue chest PT,, frequent DuoNebs, ambulation - Continued management with ID DVT prophylaxis: Heparin subcu 12h GI prophylaxis: Famotidine 10 mg nightly Disposition: Anticipation discharge to SNF once stable Code Status: allow natural 2. Weakness generalized: - Continued PT/OT - Plans to discharge to SNF 3. Healthcare associated bacterial pneumonia: - Continued management with ID Dr. Mack as above 4. CKD (chronic kidney disease): - Avoid nephrotoxic agents - Renally dose medications 5. Hypertension: - Continue management with metoprolol and amlodipine 6. BPH (benign prostatic hyperplasia): - Continue finasteride 7. Carotid artery stenosis: - Continue cardioprotective medications PDMP PDMP Reviewed: Not Reviewed Attestations 2 Medical Necessity Statement*: See note above. Patient requires multidisciplinary care, remains hypoxemic supported by HFNC, stable, slightly improving. Anticipate greater than 2 midnight stay. Coding Level of Care Code 95313 Diagnoses HAP (hospital-acquired pneumonia) J18.9; Y95 Weakness generalized R53.1 Healthcare associated bacterial pneumonia J15.9 CKD (chronic kidney disease) N18.9 Hypertension I10 BPH (benign prostatic hyperplasia) N40.0 Carotid artery stenosis I65.29
[2025-04-03 17:02] LABS: ABG PCO2 42.6 mmHg (35-45); ABG PH Result 7.45 (7.35-7.45); Arterial Blood Gas Hematocrit 34.3 % (42-52); Blood Gas LPM 60.0 %; Blood Gas Operator Identificat AMH; Blood Gas Sample Site Brachial, left; Blood Gas Sample Type Arterial; HCO3 ABG 29.6 mmol/L (22-26); PO2 ABG 49.2 mmHg (80.0-100.0); PO2 FiO2 Ratio Arterial Blood 51
[2025-04-03] MEDS: MELATONIN 3 MG TABLET PO (20:32)
[2025-04-04] VITALS (30 sets, daily range): BP systolic 71–168; BP diastolic 37–78; PULSE 70–102; RESP 14–32; TEMP 36.6–36.9; O2SAT 83–97; BMI 26.9
--- NOTE | 2025-04-04 01:53 | XRR_ITS ---
PROCEDURE INFORMATION: Exam: XR Abdomen Exam date and time: 04/04/2025 5:51 AM Age: 85 years old Clinical indication: Bloating; Prior surgery; Surgery date: 6+ months; Surgery type: Gb; Additional info: Gastric distension TECHNIQUE: Imaging protocol: Radiologic exam of the abdomen. Views: Frontal supine view of the abdomen. 1 View. COMPARISON: CR (CHEST, ) 04/04/2025 5:47 AM FINDINGS: Gastrointestinal tract: Borderline dilated loops of mid abdominal small bowel. Organs: Cholecystectomy. Bones/joints: Unremarkable. Other findings: No erect images were obtained, I can not evaluate for gas fluid levels. XR/XR abdomen 1V* [id number] IMPRESSION: Prominent loops of mid abdominal small bowel.
--- NOTE | 2025-04-04 01:53 | XRR_ITS ---
PROCEDURE INFORMATION: Exam: XR Chest Exam date and time: 04/04/2025 5:47 AM Age: 85 years old Clinical indication: Orthopnea (sob when lying down); Additional info: Evaluate hypoxemia and gastric distension TECHNIQUE: Imaging protocol: Radiologic exam of the chest. Views: 1 view. COMPARISON: CR XR chest 1V portable [id number] 04/02/2025 5:34 AM FINDINGS: Lungs: Progressive and now very severe bilateral pulmonary infiltrates. Pleural spaces: Unremarkable. No pleural effusion. No pneumothorax. Heart/Mediastinum: No change in the heart or mediastinum. Bones/joints: Unremarkable. XR/XR chest 1V portable [id number] IMPRESSION: Severe and progressive pulmonary infiltrates. CHF versus pneumonia.
--- NOTE | 2025-04-04 03:58 | PC.NURSE ---
Patient stated that he would like to remove bipap, I notified Dr Garcias and explained the situation and he stated that it would be ok for patient to take off bipap and replace heated high flow. Dr Garcias put order in for CXR and abdomen xray. RT went to patient room to remove bipap. Patient was resting with eyes closed so bipap was left on. A short time later patient used call light. Iwent to patient room to check on him and he wanted bipap off. I removed bipap and replaced heated high flow nc back on patient. I educated patient on the importance of bipap to keep O2 saturation within normal limits. He stated that the bipap hurt and he wanted it off multiple times and no one would take it off. He stated that he was told in the ER not to wear it more than 2 hours and he has had it on for 6. I tried to explain to patient that it is ok to wear bipap more than 2 hours but patient was resistant to education and and wanted to talk to refuse collector supervisor. brick chimney supervisor was notified of situation.
[2025-04-04] MEDS: heparin 5,000 unit/mL INJ 1 mL 5000 UNIT SUBCUT ×2 (05:40→15:25)
[2025-04-04] MEDS: aztreonam 1,000 MG in sodium chloride 0.9% (plus) 50 ML 100 MG IV ×2 (05:40→12:50)
[2025-04-04] MEDS: metoprolol succinate ER (24 HR) 50 mg Tablet PO (05:41)
[2025-04-04 06:29] LABS: Hematocrit 30.4 % (37-53); Hemoglobin 9.20 g/dL (11.27-16.99); Mean Corpuscular HGB Conc 30.3 g/dL (30-55); Mean Corpuscular Hemoglobin 28.8 pg (27-33); Mean Corpuscular Volume 95.0 fl (82-101); Nucleated Red Blood Cells % 0 %; Platelet Count 357 10^3/cmm (157-399); Red Blood Count 3.20 10^6/uL (3.85-5.65); White Blood Count 10.56 10^3/uL (3.29-11.43)
--- NOTE | 2025-04-04 06:49 | P.PN_ITS ---
Subjective 2 Subjective: Called multiple times regarding hypoxemia and whether patient should wear BiPAP. I instructed nurse that looks like the patient has stomach distention and would likely need an NG tube based on previous x-ray. A new x-ray was obtained and this showed distended stomach. Patient admits to reflux and some symptoms of regurg even during this admission. I think this is can be attributing to aspiration pneumonia and this was discussed with him. Patient states that he smoked minimally but quit 50 years ago. He has not had breathing trouble until the last few months. He has had reflux for the last 6 to 8 months and has to eat hours before going to sleep or he gets reflux. He does not have choking while the food is going down but does get reflux of already eaten food. Patient was question regarding possibility of intubation and ventilator and he states he would rather than be on life support long-term. I discussed whether or not he would want short-term intubation to recover from pneumonia and he states he would. If I thought this would help him to recover then he would except it. I discussed with him that there is the problem of needing an NG tube which would likely conflict with both BiPAP and high flow nasal cannula and if we are not able to provide adequate breathing support then he would likely need a ventilator. I discussed with him that if he did not improve on the ventilator and we withdrew then he would on the ventilator or despite having been on a ventilator. Patient voices understanding. He states he does not have a but his son and [id number] would be his next of kin. They are listed in the chart I just checked Vitals/I&O/Wt Last Vital Signs Temp 97.2 F L 04/03/25 19:13 Pulse 94 04/04/25 03:38 Resp 28 H 04/04/25 03:38 BP 118/60 04/04/25 03:38 Pulse Ox 86 L 04/04/25 03:38 O2 Del Method BiPAP 04/04/25 02:00 O2 Flow Rate 60 04/03/25 15:43 FiO2 100 04/04/25 02:00 04/03/25 04/03/25 04/04/25 14:59 22:59 06:59 Intake Total 850 / 850 410 / 1260 50 / 1310 Output Total 300 / 300 Balance 550 / 550 410 / 960 50 / 1010 Weight last 48 hrs Weight 82.5 kg Weight 80.739 kg Physical Exam 2 Narrative: Mediastinum is not tender to percussion. Patient is alert and oriented and pleasant Patient is on high flow oxygen 70 L/min 100% FiO2 CV regular rate and rhythm Lungs moderately good air movement in the upper lung cobos more diminished in the bases bibasilar crackles are heard to midway in the lung cobos bilaterally. Abdomen positive bowel tones soft nontender nondistended Calves no tenderness cords pretibial edema Musculoskeletal percussion over the mediastinum reproduces no tenderness or pain Data 04/04/25 05:33 04/04/25 05:33 Micro: Microbiology 03/31/25 08:17 Gram Stain - Final Sputum - Expectorated Sputum Sputum Culture - Preliminary A&P Assessment and plan 1. Acute hypoxic respiratory failure: Patient will be started dexamethasone 4 mg IV twice a day for aspiration pneumonitis and pneumonia. White count looks okay. 2. Acute distention of stomach: Place NG tube and recheck chest x-ray. Discontinue BiPAP I think this is insufflating his stomach and worsening BiPAP and pneumonia 3. Aspiration pneumonia: As above consider broadening antibiotics to cover anaerobes but based on his white count he is doing okay with gram-negative coverage. Bilateral pneumonia of other etiology not completely excluded. If patient is intubated recommend large bore ET tube and bronchoscopy. Additionally his fungal studies are pending and his viral respiratory panel from 03/26/2025 is negative I have made him n.p.o. except for ice chips sips and meds for now. He needs to be upright for all p.o. intake and should be n.p.o. for a few days to give steroids and antibiotics a chance to show improvement 4. CKD (chronic kidney disease): Creatinine currently at 2 and stable during this admission. Creatinine was 1.5- 1.7 in 2022 and 2023 PDMP PDMP Reviewed: Not Reviewed Attestations 2 Medical Necessity Statement*: Patient will require greater than 2 midnights in the hospital Coding Level of Care Code Critical Care >/= 30 minutes Diagnoses Acute hypoxic respiratory failure J96.01 Acute distention of stomach K31.0 Aspiration pneumonia J69.0 CKD (chronic kidney disease) N18.9 Time Spent (min) 45
[2025-04-04 06:53] LABS: Alanine Aminotransferase 17 U/L (0-41); Albumin Level 2.3 g/dL (3.5-5.2); Alkaline Phosphatase 80 U/L (40-130); Anion Gap 12.9 (5-19); Aspartate Amino Transferase 15 U/L (0-40); Blood Urea Nitrogen 22 mg/dL (8-23); Calcium 8.4 mg/dL (8.5-10.5); Carbon Dioxide 27 mmol/L (22-29); Chloride 102 mmol/L (98-107); Creatinine Clr Calc Pharmacy 29.3300; Globulin 2.9 g/dL (1.3-4.6); Glucose 155 mg/dL (65-115); Magnesium 1.9 mg/dL (1.7-2.3); Osmolality Calculated 290 mOsm/kg (285-295); Potassium 4.9 mmol/L (3.5-5.1); Sodium 137 mmol/L (136-145); Total Protein 5.2 g/dL (6.6-8.7)
[2025-04-04 07:27] LABS: Base Excess VBG 3.9 mmol/L (-3.0-3.0); Blood Gas LPM 60.0 %; Blood Gas Operator Identificat glc; Blood Gas Sample Site Not specified; Blood Gas Sample Type Not specified; HCO3 VBG 29.0 mmol/L (24-28); PCO2 VBG 45.2 mmHg (41-51); PO2 VBG 35.6 mmHg (25-40); Venous Blood Gas Hematocrit 30.2 % (42-52); pH VBG 7.42 (7.32-7.42)
--- NOTE | 2025-04-04 07:58 | XRR_ITS ---
PROCEDURE INFORMATION: Exam: XR Chest Exam date and time: 04/04/2025 8:24 AM Age: 85 years old Clinical indication: Device placement; Ng tube; Additional info: Ng placement TECHNIQUE: Imaging protocol: Radiologic exam of the chest. Views: 1 view. COMPARISON: CR (CHEST, ) 04/04/2025 5:47 AM FINDINGS: Tubes, catheters and devices: The gastric tube terminates in the upper stomach, side port very close to the expected location of the EG junction. Lungs: The bilateral pulmonary infiltrates appear to have moderately improved, but remains a combination of chronic interstitial fibrosis and superimposed infiltrate. Pleural spaces: Unremarkable. No pleural effusion. No pneumothorax. Heart/Mediastinum: Mild cardiomegaly. Bones/joints: Unremarkable. XR/XR chest 1V portable [id number] IMPRESSION: Enteric tube as above.
--- NOTE | 2025-04-04 08:18 | PC.NURSE ---
Patient arrived to ICU at approximately 0802. A&Ox4. 100% FIO2 on HHFNC.
[2025-04-04] MEDS: metoclopramide 5 mg/mL SDV 2 mL 10 MG IVP ×2 (08:46→12:54)
[2025-04-04] MEDS: pantoprazole 40 mg SDV IVP (08:50)
--- NOTE | 2025-04-04 10:00 | P.MISC_ITS ---
Miscellaneous Note Purpose of Documentation: Chart reviewed. Events from this morning noted. Patient's respiratory status has worsened since last being assessed HE has been moved to ICU and is expected to be intubated CXR from this mornign continues to show worsening infiltrates Continue abx for now, however given persistent worsening, recommend transfer for pulmonology and bronchoscopy for further diagnostics(micro/path/cytology) to guide therapy. Peripheral fungal markers, PJP PCR, fungitell and GM are not ex pected to return for another 5-7 days.
--- NOTE | 2025-04-04 11:00 | XR_ITS ---
WS: [id number] Portable AP supine chest, 04/04/2025, 1155 hours Clinical Data: Post-intubation Comparison: Portable chest, 04/04/2025, 0824 hours Findings: The endotracheal tube is within the trachea 4 cm above the rachel. The nasogastric tube appears to end in the stomach. The patchy opacities throughout the lungs remain the same. XR/XR chest 1V portable [id number] Impression: Satisfactory insertion of endotracheal tube.
[2025-04-04] MEDS: etomidate 2 mg/mL INJ SDV 10 mL 24.75 MG IVP (11:49)
[2025-04-04] MEDS: rocuronium 10 mg/mL INJ 5mL 45 MG IVP (11:50)
[2025-04-04] MEDS: fentaNYL 1,000 MCG/100 ML BAG 2.5 MCG IV (11:51)
[2025-04-04] MEDS: propofol 1,000 MG/100 ML INJ 2.48 MG IV (11:51)
--- NOTE | 2025-04-04 11:56 | PC.NURSE ---
Intubation: Patient agreed to intubation by Dr. Oh Time out performed at 1140 1144 Etomidate given 1145 Dg given 1147 Color change and bilateral breath sounds auscultated. 1155 Xray obtained to verify tube placement. Size 8.0 26@ Lip NG already in place. See JUN.
--- NOTE | 2025-04-04 12:10 | PM.ACPR ---
Acute Procedures Intubation: Time out performed: Yes Sedative: etomidate Mg given: 25 Paralytic: rocuronium Mg given: 45 Laryngoscope: fiber optic video scope Assist device used: fiber optic device ET tube size: 8 Tube secured depth (cm): 26 Tube secured location: lips Tube placement confirmation: visualized tube passing through cords, equal breath sounds bilaterally and color change noted Patient tolerated procedure: well Additional comments: Discussed risks, benefits and alternatives w patient and daughter in law. ETT needing to be advanced. Discussed with DIL after procedure.
--- NOTE | 2025-04-04 12:18 | P.TS_ITS ---
Transfer Summary Providers Date of Admission: 03/26/25 17:07 Date of Discharge/Transfer: 04/04/25 Attending Provider at Admission: Iron Rodriguez MD Attending Provider at Transfer: Terence Vieyra Primary Care Provider: David Garg MD Transfer Plans: Anticipated date of transfer: 04/04/25 . Diagnoses at Discharge Discharge Diagnosis 1. Acute hypoxic respiratory failure: 2. Acute distention of stomach: 3. Aspiration pneumonia: 4. CKD (chronic kidney disease): Reason for Visit Reason for Visit SOB, weakness Brief History: Umer Arango is a 85 year old male w/ pmhx of diabetes, hypertension, CKD stage III, coronary arterial artery stenosis, BPH, and GERD, emphysema, former smoker presents to the ED today with c/o worsening shortness of breath requiring increase in oxygen requirements. Patient states that his shortness of breath has been ongoing for him since last hospitalization- 03/11/24. Patient reports associated signs and symptoms of productive cough(thick green sputum), chills, no appetite, easily fatigued, and generalized weakness. Patient denies fevers, headache, chest pain, palpitations, changes in urinary and bowel habits, recent medication changes. He reports upon discharge during last hospital stay he was sent home with oxygen and breathing treatments but was not taught how to use them. He states he checks his oxygen pulse oximetry at home this morning and it read 74% on room air. Patient currently on heated high flow during my evaluation with no family noted at bedside. Patient to be admitted to hospitalist services for further medical management and care. While in ED a CBC, CMP, ABG, troponin series, BNP, lactic acid, procalcitonin, CRP obtained, reviewed, and results as indicated: WBC 17.27, Neut 14.82, HCT 36.6, Hgb 11.7, MPV 10.6. Na 140, K 3.8, Osmo 299, glucose 196. AB.45, pCO2 33.8, pO2 50.9, HCO3 23.5. Inspector And Sorter 1.9, BUN 22. Baseline troponin 41, 2-hour troponin 38.35, delta troponin -2.65, BNP 5601. Lactic acid 2.1, procalcitonin 0.1 CRP 211.57. Flu/COVID/RSV negative. While in ED the patient received following medications: 500 mL NS bolus, meropenem 500 mg IVP, Zyvox 600mg IV, Solu-Medrol 125 mg IVP, DuoNeb. Hospital Course Hospital Course Unimproved despite treatment with broad-spectrum antibiotic coverage with Levaquin, aztreonam, vancomycin, extended viral panel was negative. Urine bacterial antigens negative. Sputum cultures negative and blood cultures remaining negative from prior and current hospitalization. MRSA swab negative. Despite treatment for worsening hypoxia, hypoxemic respiratory failure. Respiratory failure with distress this morning requiring 100 send FiO2 on heated high flow cannula, with tachypnea, saturation 84%, hypoxemia, PF ratio 51. Severe diffuse infiltrates on chest x-ray. Does have advanced underlying emphysema. ARDS, cause not entirely clear, possibly not bacterial concern for atypical infection. Appreciate infectious disease input as well. 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 Restarted on corticosteroid, dexamethasone 4 mg every 12 hours. After discussion of options with patient and family, risk, benefit, alternatives, agreed to proceed with intubation, mechanical ventilation with goal of transient support, with need for further pulmonology evaluation transfer arrangements being made, pending bed opening at several facilities including [facility] where he is accepted after discussion with lecturer in marketing. BD glucan, galactomannan, histo, cocci, blasto serologies have been sent. Pneumocystis PCR sent. Physical Exam Narrative: On revisit, [id number] at bedside. Const: COMMON NORMALS: patient oriented x3 and alert GENERAL APPEARANCE: cooperative ORIENTATION/CONSCIOUSNESS: Yes awake HENMT: COMMON NORMALS: oropharynx normal Neck/C-Spine: COMMON NORMALS: no JVD Resp: COMMON NORMALS: normal respiratory effort OTHER: Coarse breath sounds Cardio: COMMON NORMALS: no JVD, regular rhythm, S1 normal heart sound present, S2 normal heart sound present and No murmurs present (Cardio) RHYTHM: regular rhythm HEART SOUNDS: S1 normal heart sound present and S2 normal heart sound present GI: COMMON NORMALS: Normal to inspection, nondistended, normoactive bowel sounds present, Soft to palpation and non-tender PALPATION: Yes Soft to palpation Extremity: COMMON NORMALS: no joint enlargement and no pedal edema Neuro: COMMON NORMALS: patient oriented x3 and moves all extremities SENSORIUM/ORIENTATION: Yes alert Skin: COMMON NORMALS: no rashes or lesions noted GENERAL SKIN EXAM: no rashes or lesions noted Urinary Catheter Management: Limon: Cath Placed During This Visit: yes Urinary Catheter Date of Insertion: 04/04/25 Urinary Catheter Time of Insertion: 12:05 TS Data Studies Completed and Pending Pending at discharge Category Date Time Status Arterial Blood Gas W/O Coox Routine Lab 04/05/25 08:30 Ordered Arterial Blood Gas W/O Coox Routine Lab 04/04/25 12:00 Ordered Blastomyces AB Panel CF and ID Routine Lab 04/03/25 09:29 Received Coccidioides AB CF Serum Routine Lab 04/03/25 09:29 Received Complete Blood Count w/Auto AM LABS Lab 04/05/25 04:00 Ordered Complete Blood Count w/Auto AM LABS Lab 04/06/25 04:00 Ordered Comprehensive Metabolic Panel AM LABS Lab 04/05/25 04:00 Ordered Comprehensive Metabolic Panel AM LABS Lab 04/06/25 04:00 Ordered Fungitell Glucan Assay (Blood) Routine Lab 04/03/25 09:29 Received GALACTOMANAN [Aspergillus AG,EIA,Serum] Routine Lab 04/03/25 09:29 Received Histoplasma Quantitative AG Routine Lab 04/03/25 12:15 Received PJP PCR [Pneumocystis jirovecii, QT PCR] Routine Lab 04/03/25 12:15 Received Sputum Culture and Gram Stain Routine Lab 03/31/25 08:17 Results Sputum Culture and Gram Stain Routine Lab 04/04/25 11:50 Received Vancomycin Trough Timed Lab 04/05/25 08:00 Ordered Completed Studies During Hospitalization Category Date Time Status XR abdomen 1V* [id number] Routine Exams 04/04/25 01:53 Completed XR chest 1V portable [id number] Routine Exams 03/28/25 09:54 Completed XR chest 1V portable [id number] Routine Exams 04/02/25 06:00 Completed XR chest 1V portable [id number] Routine Exams 04/04/25 01:53 Completed XR chest 1V portable [id number] Routine Exams 04/04/25 07:58 Completed XR chest 1V portable [id number] Stat Exams 03/26/25 09:13 Completed XR chest 1V portable [id number] Stat Exams 04/04/25 11:00 Completed Laboratory Last Values WBC 10.56 10^3/uL (3.29-11.43) 04/04/25 05:33 RBC 3.20 10^6/uL (3.85-5.65) L 04/04/25 05:33 Hgb 9.20 g/dL (11.27-16.99) L 04/04/25 05:33 Hct 30.4 % (37-53) L 04/04/25 05:33 MCV 95.0 fl (82-101) 04/04/25 05:33 MCH 28.8 pg (27-33) 04/04/25 05:33 MCHC 30.3 g/dL (30-55) 04/04/25 05:33 RDW 12.4 % (12.1-15.1) 04/04/25 05:33 Plt Count 357 10^3/cmm (157-399) 04/04/25 05:33 MPV 10.3 fL (7.4-10.4) 04/04/25 05:33 Neut % (Auto) 68.0 % 04/04/25 05:33 Lymph % (Auto) 8.0 % 04/04/25 05:33 [place] % (Auto) 11.4 % 04/04/25 05:33 Eos % (Auto) 9.6 % 04/04/25 05:33 Baso % (Auto) 0.7 % 04/04/25 05:33 Neut # (Auto) 7.19 10^3/uL (1.8-7.7) 04/04/25 05:33 Lymph # (Auto) 0.9 10^3/uL (0.8-4.8) 04/04/25 05:33 [place] # (Auto) 1.2 10^3/uL (0.2-0.9) H 04/04/25 05:33 Eos # (Auto) 1.0 10^3/uL (0.0-0.8) H 04/04/25 05:33 Baso # (Auto) 0.1 10^3/uL (0.0-0.1) 04/04/25 05:33 Nucleated RBC % (auto) 0 % 04/04/25 05:33 Nucleated RBCs # 0.0 /100WBC 04/04/25 05:33 Specimen Type Not specified 04/04/25 07:15 Sample Site Not specified 04/04/25 07:15 ABG pH 7.45 (7.35-7.45) 04/03/25 16:50 ABG pCO2 42.6 mmHg (35-45) 04/03/25 16:50 ABG pO2 49.2 mmHg (80.0-100.0) L 04/03/25 16:50 ABG PO2/FiO2 Ratio 51 04/03/25 16:50 ABG HCO3 29.6 mmol/L (22-26) H 04/03/25 16:50 ABG O2 Saturation 85.7 03/26/25 09:39 ABG Base Excess 5.0 mmol/L (-2.0-2.0) H 04/03/25 16:50 Silvio Test N/a 04/04/25 07:15 VBG pH 7.42 (7.32-7.42) 04/04/25 07:15 VBG pCO2 45.2 mmHg (41-51) 04/04/25 07:15 VBG pO2 35.6 mmHg (25-40) 04/04/25 07:15 VBG HCO3 29.0 mmol/L (24-28) H 04/04/25 07:15 VBG Base Excess 3.9 mmol/L (-3.0-3.0) H 04/04/25 07:15 VBG Hematocrit 30.2 % (42-52) L 04/04/25 07:15 A-a O2 Gradient 29.0 mmHg (5-10) H 03/26/25 09:39 Hematocrit 34.3 % (42-52) L 04/03/25 16:50 Hgb O2 Saturation 84.9 % (95-100) L 03/26/25 09:39 Carboxyhemoglobin 0.5 %THgb (0.4-20.1) 03/26/25 09:39 Methemoglobin 0.5 % (0.4-1.5) 03/26/25 09:39 Total Hemoglobin 12.3 g/dL (14-18) L 03/26/25 09:39 Sodium 140.0 mmol/L (131-143) 03/26/25 09:39 Potassium 3.3 mmol/L (3.5-5.0) L 03/26/25 09:39 Glucose 201.0 mg/dL (70-115) H 03/26/25 09:39 Ionized Calcium 1.2 mmol/L (1.1-1.4) 03/26/25 09:39 O2 Delivery Device Venturi 04/04/25 07:15 O2 Liters/Min 60.0 % 04/04/25 07:15 FiO2 100.0 % 04/04/25 07:15 Gold Blower ID glc 04/04/25 07:15 Sodium 137 mmol/L (136-145) 04/04/25 05:33 Potassium 4.9 mmol/L (3.5-5.1) 04/04/25 05:33 Chloride 102 mmol/L (98-107) 04/04/25 05:33 Carbon Dioxide 27 mmol/L (22-29) 04/04/25 05:33 Anion Gap 12.9 (5-19) 04/04/25 05:33 BUN 22 mg/dL (8-23) 04/04/25 05:33 Creatinine 2.0 mg/dL (0.7-1.2) H 04/04/25 05:33 GFR Calculation Not Reportable 04/04/25 05:33 Glucose 155 mg/dL (65-115) H 04/04/25 05:33 POC Glucose 156 mg/dL (70-110) H 04/04/25 11:05 Estimat Average Glucose 160 03/26/25 09:43 Hemoglobin A1c 7.2 % (4.0-6.0) H 03/26/25 09:43 Calculated Osmolality 290 mOsm/kg (285-295) 04/04/25 05:33 Lactic Acid 2.1 mmol/L (0.5-2.2) 03/26/25 09:43 Lactic Acid (Sepsis) 1.3 mmol/L (0.5-2.2) 03/26/25 12:50 Calcium 8.4 mg/dL (8.5-10.5) L 04/04/25 05:33 Phosphorus 3.3 mg/dL (2.5-4.5) 04/02/25 08:57 Magnesium 1.9 mg/dL (1.7-2.3) 04/04/25 05:33 Total Bilirubin 0.2 mg/dL (0.15-1.2) 04/04/25 05:33 AST 15 U/L (0-40) 04/04/25 05:33 ALT 17 U/L (0-41) 04/04/25 05:33 Alkaline Phosphatase 80 U/L (40-130) 04/04/25 05:33 Troponin T Baseline 41 ng/L (0-15) H 03/26/25 09:43 Troponin T 60 Minute 38.35 ng/L (0-15) H 03/26/25 11:16 Delta Troponin T -2.65 ABS# (0-10) L 03/26/25 11:16 Troponin T Hi Sens 6Hr 37.30 ng/L (0-15) H 03/26/25 15:38 Troponin T Hi Sens 6Hr Delta -3.70 ng/L (0-12) L 03/26/25 15:38 C-Reactive Protein 211.5 mg/L (0.0-4.9) H 03/26/25 09:43 NT-Pro-B Natriuret Pep 5601 pg/mL (0-450) H 03/26/25 09:43 Total Protein 5.2 g/dL (6.6-8.7) L 04/04/25 05:33 Albumin 2.3 g/dL (3.5-5.2) L 04/04/25 05:33 Globulin 2.9 g/dL (1.3-4.6) 04/04/25 05:33 Triglycerides 45 mg/dL (0-150) 03/26/25 15:38 Cholesterol 88 mg/dL (0-200) 03/26/25 15:38 LDL Cholesterol, Calc 39 mg/dL (50-129) L 03/26/25 15:38 HDL Cholesterol 40 mg/dL (60-100) L 03/26/25 15:38 LDL/HDL Ratio 0.98 RATIO (0.00-3.22) 03/26/25 15:38 Cholesterol/HDL Ratio 2.20 mg/dL (1.0-5.00) 03/26/25 15:38 Procalcitonin 0.17 ng/mL (0-0.5) 03/26/25 09:43 Nasal MRSA (PCR) Not detected (Negative) 03/26/25 21:00 Vancomycin Trough 17.0 ug/mL (10-15) H 03/29/25 17:06 Adenovirus (PCR) Not detected (NOT DETECT) 03/26/25 16:04 C. pneumoniae DNA (PCR) Not detected (NOT DETECT) 03/26/25 16:04 Coronavirus 229E (PCR) Not detected (NOT DETECT) 03/26/25 16:04 Human Metapneumovir PCR Not detected (NOT DETECT) 03/26/25 16:04 Influenza A (H1) PCR Not detected (NOT DETECT) 03/26/25 16:04 Influenza A (PCR) Negative (Negative) 03/26/25 09:42 Influ A (H1/09) PCR Not detected (NOT DETECT) 03/26/25 16:04 Influenza A (H3) PCR Not detected (NOT DETECT) 03/26/25 16:04 Influenza Type A (PCR) Not detected (NOT DETECT) 03/26/25 16:04 Influenza Type B (PCR) Not detected (NOT DETECT) 03/26/25 16:04 M. pneumoniae (PCR) Not detected (NOT DETECT) 03/26/25 16:04 Parainfluenza 1 (PCR) Not detected (NOT DETECT) 03/26/25 16:04 Parainfluenza 2 (PCR) Not detected (NOT DETECT) 03/26/25 16:04 Parainfluenza 3 (PCR) Not detected (NOT DETECT) 03/26/25 16:04 Parainfluenza 4 (PCR) Not detected (NOT DETECT) 03/26/25 16:04 RSV (PCR) Negative (Negative) 03/26/25 09:42 RSV Type A (PCR) Not detected (NOT DETECT) 03/26/25 16:04 RSV Type B (PCR) Not detected (NOT DETECT) 03/26/25 16:04 Entero/Rhino (PCR) Not detected (NOT DETECT) 03/26/25 16:04 SARS-CoV-2 (PCR) Not detected (NOT DETECT) 03/26/25 16:04 Radiology Impressions Abdomen X-Ray 04/04/25 01:53 IMPRESSION: Prominent loops of mid abdominal small bowel. Chest X-Ray 04/04/25 11:00 Impression: Satisfactory insertion of endotracheal tube. Recent Clincial Data Last Vital Signs Temp 98.5 F 04/04/25 08:10 Pulse 98 04/04/25 12:07 Resp 15 04/04/25 12:00 BP 168/78 04/04/25 12:07 Pulse Ox 92 04/04/25 12:07 O2 Del Method High Flow Nasal Cannula 04/04/25 08:12 O2 Flow Rate 60 04/04/25 07:52 FiO2 100 04/04/25 12:00 Vital Signs Temp Pulse Pulse Resp Resp BP Pulse Ox 04/04/25 12:07 98 168/78 92 04/04/25 12:00 15 92 04/04/25 08:12 04/04/25 08:10 98.5 F 95 30 H 138/61 86 L 04/04/25 08:00 04/04/25 07:52 92 30 H 04/04/25 07:49 92 28 H 86 L 04/04/25 07:47 97.8 F 94 29 H 123/60 83 L 04/04/25 03:38 94 28 H 118/60 86 L 04/04/25 02:00 99 32 H 92 Pulse Ox O2 Del Method O2 Flow Rate O2 Flow Rate FiO2 FiO2 04/04/25 12:07 04/04/25 12:00 100 04/04/25 08:12 High Flow Nasal Cannula 04/04/25 08:10 04/04/25 08:00 100 04/04/25 07:52 84 L 60 100 04/04/25 07:49 Heated High Flow 60 100 04/04/25 07:47 04/04/25 03:38 04/04/25 02:00 BiPAP 100 Intake & Output/Weight 04/02/25 04/03/25 04/04/25 04/05/25 06:59 06:59 06:59 06:59 Intake Total 720 / 720 390 / 390 1310 / 1310 300 / 300 Output Total 750 / 750 1100 / 1100 700 / 700 Balance -30 / -30 -710 / -710 610 / 610 300 / 300 Weight 82.146 kg 82.5 kg Vitals Last Vital Signs Temp 98.5 F 04/04/25 08:10 Pulse 98 04/04/25 12:07 Resp 15 04/04/25 12:00 BP 168/78 04/04/25 12:07 Pulse Ox 92 04/04/25 12:07 O2 Del Method High Flow Nasal Cannula 04/04/25 08:12 O2 Flow Rate 60 04/04/25 07:52 FiO2 100 04/04/25 12:00 TS Medications Medications Acetaminophen (Acetaminophen 325 Mg Tablet) 650 mg PO Q6H PRN PRN Reason: Mild/Mod Pain Or Temp >/= 101 Albuterol/Ipratropium (Ipratropium-Albuterol 3 Ml Neb) 3 ml INHALATION Q6H PRN PRN Reason: SHORTNESS OF BREATH Last Admin: 03/28/25 07:53 Dose: 3 ml Albuterol/Ipratropium (Ipratropium-Albuterol 3 Ml Neb) 3 ml INHALATION Q6H.RESP [facility] Last Admin: 04/04/25 07:48 Dose: 3 ml Amlodipine Besylate (Amlodipine 5 Mg Tablet) 5 mg PO DAILY [facility] Aspirin (Aspirin 81 Mg Ec Tablet) 81 mg PO DAILY [facility] Last Admin: 04/04/25 05:41 Dose: 81 mg Budesonide (Budesonide 0.5 Mg/2 Ml Neb) 0.5 mg INHALATION BID.RESPIRATORY [facility] Last Admin: 04/04/25 07:48 Dose: Not Given Chlorhexidine Gluconate (Chlorhexidine Gluconate 4% Btl 118 Ml) 1 applic TOPICAL 0100 [facility] Dexamethasone (Dexamethasone 10 Mg/Ml Inj) 4 mg IVP Q12H [facility] Last Admin: 04/04/25 08:48 Dose: 4 mg Docusate Sodium (Docusate Sodium 100 Mg Capsule) 100 mg PO BID [facility] Last Admin: 04/04/25 05:41 Dose: 100 mg Etomidate (Etomidate 2 Mg/Ml Inj Sdv 10 Ml) 24.75 mg 0.3 mg/kg (24.75 mg) IVP ONCE PRN PRN Reason: Intub Last Admin: 04/04/25 11:49 Dose: 24.75 mg Finasteride (Finasteride 5 Mg Tablet) 5 mg PO DAILY [facility] Last Admin: 04/04/25 05:41 Dose: 5 mg Fluoxetine HCl (Fluoxetine 20 Mg Capsule) 20 mg PO DAILY [facility] Last Admin: 04/04/25 05:41 Dose: 20 mg Glucagon (Glucagon 1 Mg/Ml Kit 1 Ml) 1 mg IM ONCE PRN; Protocol PRN Reason: Adult Acute Hypoglycemia Nursing Prot. Heparin Sodium (Porcine) (Heparin 5,000 Unit/Ml Inj 1 Ml) 5,000 unit SUBCUT Q12H [facility] Last Admin: 04/04/25 05:40 Dose: 5,000 unit Dextrose (D5w) 500 mls @ 0 mls/hr IV ONCE PRN; Protocol PRN Reason: Adult Acute Hypoglycemia Prot Dextrose (D10w) 125 mls @ 750 mls/hr IV PRN PRN; Protocol PRN Reason: Adult Acute Hypoglycemia Nursing Protocol Dextrose (D10w) 250 mls @ 1,000 mls/hr IV PRN PRN; Protocol PRN Reason: Adult Acute Hypoglycemia Nursing Protocol Aztreonam 1,000 mg/ Sodium (Chloride) 50 mls @ 100 mls/hr IV Q8H [facility]; Protocol Last Infusion: 04/04/25 08:09 Dose: Infused Vancomycin HCl 1,000 mg/ (Sodium Chloride) 250 mls @ 250 mls/hr IV Q24H [facility] Last Infusion: 04/04/25 10:29 Dose: Infused Propofol (Diprivan) 1,000 mg in 100 mls @ 0 mls/hr IV .Q0M [facility]; Protocol Last Admin: 04/04/25 11:51 Dose: 5 mcg/kg/min, 2.48 mls/hr Fentanyl (Sublimaze) 1,000 mcg in 100 mls @ 0 mls/hr IV .Q0M [facility]; Protocol Last Admin: 04/04/25 11:51 Dose: 25 mcg/hr, 2.5 mls/hr Insulin Human Lispro (Insulin Lispro 100 Unit/1 Ml) 0 unit SUBCUT WM&BEDTIME [facility]; Protocol Last Admin: 04/04/25 08:26 Dose: Not Given Levofloxacin (Levofloxacin 500 Mg Tablet) 250 mg PO Q24H [facility]; Protocol Last Admin: 04/03/25 14:12 Dose: 250 mg Lorazepam (Lorazepam 0.5 Mg Tablet) 0.5 mg PO Q4H PRN PRN Reason: ANXIETY Magnesium Oxide (Magnesium Oxide 400 Mg Tablet) 400 mg PO DAILY [facility] Last Admin: 04/04/25 05:41 Dose: 400 mg Melatonin (Melatonin 3 Mg Tablet) 3 mg PO BEDTIME [facility] Last Admin: 04/03/25 20:32 Dose: 3 mg Metoclopramide HCl (Metoclopramide 5 Mg/Ml Sdv 2 Ml) 10 mg IVP Q6H [facility] Last Admin: 04/04/25 08:46 Dose: 10 mg Metoprolol Succinate (Metoprolol Succinate Er (24 Hr) 50 Mg Tablet) 50 mg PO DAILY [facility] Last Admin: 04/04/25 05:41 Dose: 50 mg Ondansetron HCl (Ondansetron 2 Mg/Ml Sdv 2 Ml) 4 mg IVP Q8H PRN PRN Reason: vomiting, or N/V if npo Last Admin: 04/02/25 00:50 Dose: 4 mg Pantoprazole Sodium (Pantoprazole 40 Mg Sdv) 40 mg IVP Q12H [facility] Last Admin: 04/04/25 08:50 Dose: 40 mg Rocuronium [place] (Rocuronium 10 Mg/Ml Inj 5ml) 45 mg IVP ONCE PRN PRN Reason: intub Last Admin: 04/04/25 11:50 Dose: 45 mg Discontinued Medications Albuterol/Ipratropium (Ipratropium-Albuterol 3 Ml Neb) 3 ml INHALATION ONCE ONE Stop: 03/26/25 09:49 Last Admin: 03/26/25 10:14 Dose: 3 ml Amlodipine Besylate (Amlodipine 5 Mg Tablet) 5 mg PO BID [facility] Last Admin: 04/01/25 17:28 Dose: 5 mg Amlodipine Besylate (Amlodipine 5 Mg Tablet) 10 mg PO DAILY [facility] Last Admin: 04/04/25 05:41 Dose: 10 mg Amoxicillin/Clavulanate Potassium (Amoxicillin-Clav 875-125 Mg Tablet) 1 tab PO BID [facility]; Protocol Last Admin: 04/01/25 17:28 Dose: 1 tab Bisacodyl (Bisacodyl 5 Mg Tablet) 10 mg PO DAILY PRN; Protocol PRN Reason: Constipation (see protocol) Cefepime HCl (Cefepime 1,000 Mg Sdv) 1,000 mg IVP Q12H [facility]; Protocol Last Admin: 03/27/25 22:25 Dose: 1,000 mg Dexamethasone (Dexamethasone 4 Mg/Ml Inj) 4 mg IVP Q12H [facility] Famotidine (Famotidine 20 Mg Tablet) 20 mg PO BEDTIME [facility] Last Admin: 04/01/25 20:23 Dose: 20 mg Famotidine (Famotidine 20 Mg Tablet) 10 mg PO BEDTIME [facility] Last Admin: 04/03/25 20:32 Dose: 10 mg Guaifenesin (Guaifenesin 600 Mg Tablet) 1,200 mg PO BID [facility] Last Admin: 04/01/25 17:27 Dose: 1,200 mg Hydrochlorothiazide (Hydrochlorothiazide 25 Mg Tablet) 12.5 mg PO DAILY [facility] Last Admin: 03/29/25 05:28 Dose: 12.5 mg Linezolid (Zyvox Premix) 600 mg in 300 mls @ 300 mls/hr IV ONCE ONE; Protocol Stop: 03/26/25 10:47 Last Infusion: 03/26/25 15:44 Dose: Infused Sodium Chloride (Sodium Chloride 0.9%) 500 mls @ 999 mls/hr IV .Q31M STA Stop: 03/26/25 11:25 Last Infusion: 03/26/25 15:44 Dose: Infused Vancomycin HCl 1,000 mg/ (Sodium Chloride) 250 mls @ 250 mls/hr IV ONCE ONE Stop: 03/26/25 16:29 Last Infusion: 03/26/25 17:16 Dose: Infused Vancomycin HCl 750 mg/ Sodium (Chloride) 250 mls @ 250 mls/hr IV ONCE ONE Stop: 03/27/25 20:29 Last Infusion: 03/28/25 09:02 Dose: Infused Vancomycin HCl / Sodium (Chloride) 250 mls @ 0 mls/hr [id number] PROTOCOL [facility]; Protocol Vancomycin HCl 750 mg/ Sodium (Chloride) 250 mls @ 250 mls/hr IV ONCE ONE Stop: 03/28/25 23:14 Last Infusion: 03/29/25 06:09 Dose: Infused Sodium Chloride (Sodium Chloride 0.9%) 1,000 mls @ 999 mls/hr IV .Q1H1M ONE Stop: 03/29/25 08:56 Last Infusion: 03/29/25 10:04 Dose: Infused Sodium Chloride (Sodium Chloride 0.9%) 1,000 mls @ 999 mls/hr IV .Q1H1M ONE Stop: 03/30/25 12:58 Last Infusion: 03/30/25 14:25 Dose: Infused Vancomycin HCl / Sodium (Chloride) 250 mls @ 0 mls/hr [id number] PROTOCOL [facility]; Protocol Levofloxacin (Levofloxacin 500 Mg Tablet) 500 mg PO Q48H [facility]; Protocol Last Admin: 04/01/25 14:02 Dose: 500 mg Magnesium Oxide (Magnesium Oxide 400 Mg Tablet) 400 mg PO BID [facility] Last Admin: 04/01/25 17:28 Dose: 400 mg Meropenem (Meropenem 500 Mg Sdv) 500 mg IVP ONCE ONE; Protocol Stop: 03/26/25 09:49 Last Admin: 03/26/25 10:07 Dose: 500 mg Meropenem (Meropenem 1,000 Mg Sdv) 1,000 mg IVP Q8H [facility]; Protocol Meropenem (Meropenem 1,000 Mg Sdv) 1,000 mg IVP Q12H [facility]; Protocol Last Admin: 03/30/25 07:45 Dose: 1,000 mg Methylprednisolone Sodium Succinate (Methylprednisolone Sod Succ 125 Mg/2 Ml Inj) 125 mg IVP ONCE ONE Stop: 03/26/25 09:49 Last Admin: 03/26/25 10:06 Dose: 125 mg Methylprednisolone Sodium Succinate (Methylprednisolone Sod Succ 40 Mg/Ml Inj) 30 mg IVP TID [facility] Last Admin: 03/28/25 04:17 Dose: 30 mg Metoprolol Tartrate (Metoprolol Tartrate 50 Mg Tablet) 25 mg PO BID [facility] Stop: 03/30/25 05:01 Last Admin: 03/30/25 05:01 Dose: Not Given Pantoprazole Sodium (Pantoprazole Dr 40 Mg Tablet) 40 mg PO DAILY [facility] Last Admin: 03/30/25 05:00 Dose: 40 mg Sodium Chloride (Sodium Chloride 3.5% Neb 4 Ml Neb) 4 ml INHALATION BID.RESPIRATORY [facility] Last Admin: 04/01/25 21:07 Dose: 4 ml Vancomycin HCl (Vancomycin 1,000 Mg Sdv (Pharmacy Mix)) 0 mg XX PRN PRN PRN Reason: Pharmacy to Dose Vancomycin HCl (Vancomycin 1,000 Mg Sdv (Pharmacy Mix)) 0 mg XX PRN PRN PRN Reason: Pharmacy to Dose Zolpidem Tartrate (Zolpidem 5 Mg Tablet) 5 mg PO BEDTIME [facility] Last Admin: 04/01/25 20:23 Dose: 5 mg Allergies lisinopril Adverse Reaction (Mild, Verified 03/11/25 08:34) Unknown Feels that it coused DM Home Medications aspirin 81 mg tablet,delayed release (Enteric Coated Aspirin) 81 mg PO DAILY #90 tabs 09/22/23 [Rx Confirmed 03/26/25] metoprolol tartrate 50 mg tablet 25 mg PO BID 12/22/24 [History Confirmed 03/26/25] cholecalciferol (vitamin D3) 50 mcg (2,000 unit) capsule 50 mcg PO DAILY #30 caps 12/28/24 [Rx Confirmed 03/26/25] cyanocobalamin (vitamin B-12) 500 mcg tablet (Vitamin B-12) 500 mcg PO DAILY #30 tabs 12/28/24 [Rx Confirmed 03/26/25] magnesium 200 mg tablet 200 mg PO DAILY 03/11/25 [History Confirmed 03/26/25] budesonide 0.5 mg/2 mL suspension for nebulization 0.5 mg (2 mL) inhalation BID.RESPIRATORY 30 days #120 mL 03/13/25 [Rx Confirmed 03/26/25] ipratropium 0.5 mg-albuterol 3 mg (2.5 mg base)/3 mL nebulization soln 3 ml inhalation Q8H PRN shortness of breath #90 mL 03/13/25 [Rx Confirmed 03/26/25] pantoprazole 40 mg tablet,delayed release 40 mg PO DAILY 30 days #30 tabs 03/13/25 [Rx Confirmed 03/26/25] amlodipine 5 mg tablet 5 mg PO BID 03/26/25 [History Confirmed 03/26/25] finasteride 5 mg tablet 5 mg PO DAILY 03/26/25 [History Confirmed 03/26/25] fluoxetine 20 mg capsule 20 mg PO DAILY 03/26/25 [History Confirmed 03/26/25] hydrochlorothiazide 12.5 mg capsule 12.5 mg PO DAILY 03/26/25 [History Confirmed 03/26/25] Discharge Plan Discharge Patient Disposition: Xfer SNF Condition: Stable Prescriptions: No Action metoprolol tartrate 50 mg tablet 25 mg PO BID aspirin [Enteric Coated Aspirin] 81 mg tablet,delayed release (DR/EC) 81 mg PO DAILY Qty: 90 3RF cyanocobalamin (vitamin B-12) [Vitamin B-12] 500 mcg tablet 500 mcg PO DAILY Qty: 30 6RF cholecalciferol (vitamin D3) 50 mcg (2,000 unit) capsule 50 mcg PO DAILY Qty: 30 6RF magnesium 200 mg Tablet 200 mg PO DAILY pantoprazole 40 mg Tablet,Delayed Release (Dr/Ec) 40 mg PO DAILY 30 Days Qty: 30 0RF budesonide 0.5 mg/2 mL Suspension For Nebulization 0.5 mg inhalation BID.RESPIRATORY 30 Days Qty: 120 0RF ipratropium-albuterol 0.5 mg-3 mg(2.5 mg base)/3 mL solution for nebulization 3 ml inhalation Q8H PRN (Reason: shortness of breath) Qty: 90 0RF amlodipine 5 mg tablet 5 mg PO BID hydrochlorothiazide 12.5 mg capsule 12.5 mg PO DAILY fluoxetine 20 mg capsule 20 mg PO DAILY finasteride 5 mg tablet 5 mg PO DAILY Referrals: [facility] [Outside] David Garg MD [Primary Care Provider, Family Practice] Patient Instructions: Opioid Safety, Patient Portal & Des Instructions Transfer Attestations Time Spent in Transfer Care: greater than 30 min Quality Metrics Clinical Quality Measures [ No reported AMI, CVA or VTE this stay] Coding Level of Care Code Critical Care >/= 30 minutes Critical care time (in minutes): 35 The high probability of a clinically significant, sudden or life threatening det erioration, as referenced in this documentation, required my full and direct attention, intervention and personal management. The critical care time shown is in addition to time spent performing any reported separately billable procedures and includes the following: [x] Data and vital sign review and interpretation [x ] Patient assessment, examination and intervention [x] Medication orders and management [x] Patient/Family updates as able [x] Care Coordination and Documentation. Diagnoses Acute hypoxic respiratory failure J96.01 Acute distention of stomach K31.0 Aspiration pneumonia J69.0 CKD (chronic kidney disease) N18.9
[2025-04-04] MEDS: midazolam hcl 100 MG/100 ML BAG IV (13:26)
[2025-04-04 13:57] LABS: ABG PCO2 53.4 mmHg (35-45); ABG PH Result 7.32 (7.35-7.45); Arterial Blood Gas Hematocrit 30.9 % (42-52); Blood Gas Allen Test Pos; Blood Gas Operator Identificat GD; Blood Gas Sample Site Radial, left; Blood Gas Sample Type Arterial; Blood Gas Tidal Volume 0.50; HCO3 ABG 27.3 mmol/L (22-26); PEEP 8.0 cmH20; PO2 ABG 79.2 mmHg (80.0-100.0); PO2 FiO2 Ratio Arterial Blood 79
[2025-04-04] MEDS: norepinephrine 4 MG/250 ML BAG 7.5 MG IV (14:00)
[2025-04-04] MEDS: meropenem 1,000 mg SDV 1000 MG IVP (15:25)
--- NOTE | 2025-04-04 15:34 | PC.SOCIAL ---
IMM UPDATED IMM dated and initialed, Copy placed in chart and copy given to patient.
[2025-04-04] MEDS: fentaNYL 1,000 MCG/100 ML BAG 10 MCG IV (16:27)
--- NOTE | 2025-04-04 17:18 | PC.NURSE ---
Patient transferred to via [facility]. Patient loaded on helicopter at approximately 1647
[2025-04-06 19:59] LABS: Fungitell 1-3-B Glucan Assay <31 pg/mL (<60); Interpretation Negative (Negative)
[2025-04-06 20:29] LABS: Aspergillus AG,EIA,Serum NOT DETECTED; Aspergillus Galactomannan Inde <0.50
[2025-04-08 17:49] LABS: Coccidioides AB CF Serum <1:2
[2025-04-09 14:49] LABS: Blastomyces AB Immunodiffusion Negative (Negative); Blastomyces Dermatitidis AB <1:8 titer (<1:8)
[2025-04-10 09:10] LABS: Histoplasma Antigen (Quant) None Detected; Histoplasma Antigen Interpreta NEGATIVE; Histoplasma Antigen Specimen URINE
== END 2025-04-04 16:57 | disposition short-term general hospital (02) | DRG 208 ==
LOC: ER 16:09 → ICU 17:08 → CSU 03-29 05:42 → ICU 04-04 07:54
PROVIDERS: Registered Nurse; Student in an Organized Health Care Education/Training Program; Admitting Provider Internal Medicine; Emergency Provider Emergency Medicine; PCP Family Medicine; Visit Provider Internal Medicine
DX: J18.9 Pneumonia, unspecified organism (principal); A41.9 Sepsis, unspecified organism; J96.01 Acute respiratory failure with hypoxia; R65.20 Severe sepsis without septic shock; K31.0 Acute dilatation of stomach; J44.1 Chronic obstructive pulmonary disease with (acute) exacerbation; J44.0 Chronic obstructive pulmonary disease with (acute) lower respiratory infection; J69.0 Pneumonitis due to inhalation of food and vomit; E11.22 Type 2 diabetes mellitus with diabetic chronic kidney disease; N18.30 Chronic kidney disease, stage 3 unspecified; I12.9 Hypertensive chronic kidney disease with stage 1 through stage 4 chronic kidney disease, or unspecified chronic kidney disease; K21.9 Gastro-esophageal reflux disease without esophagitis; Z99.81 Dependence on supplemental oxygen; N40.0 Benign prostatic hyperplasia without lower urinary tract symptoms; Z87.891 Personal history of nicotine dependence; Z82.49 Family history of ischemic heart disease and other diseases of the circulatory system; Z79.82 Long term (current) use of aspirin; I65.29 Occlusion and stenosis of unspecified carotid artery
CPT/HCPCS: 36415; 36416; 36600; 51702; 71045; 74018; 80051; 80053; 80061; 80202; 82330; 82803; 82805; 82962; 83036; 83605; 83615; 83735; 83880; 84100; 84145; 84484; 85025; 86140; 86403; 86612; 86635; 87040; 87070; 87106; 87205; 87305; 87385; 87449; 87486; 87581; 87633; 87637; 87799; 92610; 93005; 94002; 94640; 94660; 94799; 96365; 96367; 96372; 96375; 97110; 97161; 97167; 97530; 97535; 99291; J0692; J1100; J1644; J1815; J2020; J2185; J2250; J2405; J2470; J2704; J2765; J2919; J3010; J3373; J3490; J7030; J7040; J7050; J7626; J9999